=== PATIENT | male | born 1945 | race Caucasian/White ===

== ENCOUNTER 2018-06-06 11:00 | Oncology outpatient (ONC) | payer MEDICARE, SELFPAY ==
[2018-05-30 12:04] LABS: Add Manual Diff / Slide Review NO; Basophils Percent Auto 0.6 % (0-2); Eosinophils Percent Auto 2.5 % (2-4); Hematocrit 46.2 % (41-53); Hemoglobin 15.6 g/dL (13.5-17.5); Lymphocytes Percent Auto 21.9 % (25-40); Mean Corpuscular HGB Conc 33.8 % (30-36); Mean Corpuscular Hemoglobin 31.3 PG (26-34); Mean Corpuscular Volume 92.7 fL (80-100); Monocytes Percent Auto 5.7 % (3-14); Neutrophils Absolute Auto 3800 /uL (3000-5900); Neutrophils Percent Auto 69.3 % (50-75); Platelet Count 125 X10^3/uL (150-400); Red Blood Cell Count 4.98 X10^6/uL (4.5-5.9); Red Cell Distribution Width 13.9 % (11.6-14.8); White Blood Cell Count 5.5 X10^3/uL (4.5-11.0)
[2018-05-30 12:25] LABS: Alanine Aminotransferase 62 IU/L (21-72); Albumin Globulin Ratio 1.5 (1.0-2.8); Alkaline Phosphatase 147 U/L (38-126); Aspartate Aminotransferase 54 IU/L (17-59); Bilirubin Total 0.9 mg/dL (0.2-1.3); Blood Urea Nitrogen 18 mg/dL (9-20); Calcium 9.1 mg/dL (8.4-10.2); Carbon Dioxide 28 mmol/L (22-32); Chloride 107 mmol/L (98-107); Estimated Glomerular Filt Rate > 60.0 mL/min (>60); Globulin 2.7 g/dL (1.7-4.1); Glucose 147 mg/dL (80-110); HEMOLYSIS 18 (0-50); Potassium 4.5 mmol/L (3.4-5.1); Sodium 142 mmol/L (137-145); Total Protein 6.7 g/dL (6.3-8.2)
[2018-05-31 15:19] LABS: Cancer (Carbohydrate) Ag 19-9 18 U/mL (< 34)
[2018-06-06 11:28] VITALS: BP 121/65; PULSE 46; RESP 18; TEMP 36.7; O2SAT 97
--- NOTE | 2018-06-06 11:37 | ONC.PN ---
PN -Subjective Interval history: Diagnosis: Ampullary carcinoma Previous treatment: 1. Surgical resection February 2012 2. Adjuvant FOLFOX followed by chemo radiation followed by additional FOLFOX finishing in December 2012. Interval history: The patient is a 72-year-old man who returns today for follow-up of an ampullary carcinoma. He is now 6 years out from his surgery in more than 5 years out from the end of his chemotherapy. Since his last visit here, he has been feeling about the same. He is bothered by a frequent bowel movements particularly in the mornings. It seems to be worse if he has a big meal. He denies any nausea or vomiting though. His appetite has been stable. He has gained a couple of lb since his last visit. He denies any shortness of breath or cough. He has not noted any adenopathy. He is not having any abdominal pain and denies any other new aches or pains. - Patient Self-Reported Symptoms SR Gastrointestinal issues: Diarrhea SR Musculoskeletal issues: Joint pain or swelling SR Hematologic issues: Bleeding/bruising Home Medications and Allergies Home Medications Medication Instructions Recorded Confirmed Type peqksc-qjhqhzxc-lzmbeer [Creon] 10 ecc PO QDAY #450 cap 08/08/17 06/06/18 Rx insulin aspart U-100 [Novolog 0 unit SQ TIDCC #0 11/29/17 06/06/18 History U-100 Insulin aspart] buspirone 15 mg tablet 15 mg PO SEE INSTRUCTIONS #270 tab 01/06/18 06/06/18 Rx triamcinolone acetonide 0.1 % 1 applictn TOP BID #15 gram NS 01/27/18 06/06/18 Rx topical cream meloxicam 15 mg tablet 15 mg PO Q DAY #30 tab 05/25/18 06/06/18 Rx clonazepam 1 mg tablet 1 mg PO QIDP PRN #60 tab 05/29/18 06/06/18 Rx Allergies Allergy/AdvReac Type Severity Reaction Status Date / Time No Known Drug Allergies Allergy Verified 06/06/18 11:30 Exam - Constitutional positive no acute distress, positive average body habitus - Routine HEENT Exam Head: Present: normocephalic, atraumatic Eye: Present: EOMI, PERRL. Absent: conjunctival icterus, scleral injection ENT: Present: mucous membranes moist, oropharynx clear - Routine Neck Exam Present: supple. Absent: lymphadenopathy, thyromegaly - Routine Respiratory Exam Present: Clear to auscultation bilaterally. Absent: rales, wheezes - Routine Cardiovascular Exam Present: RRR, S1, S2. Absent: murmur - Routine Abdominal Exam Present: soft, normoactive bowel sounds. Absent: organomegaly, mass - Routine Extremities Exam Absent: cyanosis, clubbing, edema - Routine Back/Spine Exam Back/Spine: Absent: vertebral tenderness - Routine Skin Exam Present: intact. Absent: petechiae, rash - Routine Neurological Exam Present: alert, oriented X3 - Routine Psychiatric Exam Present: normal affect, normal thought process Results - Labs Laboratory Last Values WBC 5.5 X10^3/uL (4.5-11.0) 05/30/18 11:39 RBC 4.98 X10^6/uL (4.5-5.9) 05/30/18 11:39 Hgb 15.6 g/dL (13.5-17.5) 05/30/18 11:39 Hct 46.2 % (41-53) 05/30/18 11:39 MCV 92.7 fL (80-100) 05/30/18 11:39 MCH 31.3 PG (26-34) 05/30/18 11:39 MCHC 33.8 % (30-36) 05/30/18 11:39 RDW 13.9 % (11.6-14.8) 05/30/18 11:39 Plt Count 125 X10^3/uL (150-400) L 05/30/18 11:39 Neut % (Auto) 69.3 % (50-75) 05/30/18 11:39 Lymph % (Auto) 21.9 % (25-40) L 05/30/18 11:39 [place] % (Auto) 5.7 % (3-14) 05/30/18 11:39 Eos % (Auto) 2.5 % (2-4) 05/30/18 11:39 Baso % (Auto) 0.6 % (0-2) 05/30/18 11:39 Neut # (Auto) 3800 /uL (1515-0985) 05/30/18 11:39 Sodium 142 mmol/L (137-145) 05/30/18 11:39 Potassium 4.5 mmol/L (3.4-5.1) 05/30/18 11:39 Chloride 107 mmol/L (98-107) 05/30/18 11:39 Carbon Dioxide 28 mmol/L (22-32) 05/30/18 11:39 BUN 18 mg/dL (9-20) 05/30/18 11:39 Creatinine 0.90 mg/dL (0.66-1.25) 05/30/18 11:39 Estimated GFR > 60.0 mL/min (>60) 05/30/18 11:39 BUN/Creatinine Ratio 20.0 (6-22) 05/30/18 11:39 Glucose 147 mg/dL (80-110) H 05/30/18 11:39 Calcium 9.1 mg/dL (8.4-10.2) 05/30/18 11:39 Total Bilirubin 0.9 mg/dL (0.2-1.3) 05/30/18 11:39 AST 54 IU/L (17-59) 05/30/18 11:39 ALT 62 IU/L (21-72) 05/30/18 11:39 Alkaline Phosphatase 147 U/L (38-126) H 05/30/18 11:39 Total Protein 6.7 g/dL (6.3-8.2) 05/30/18 11:39 Albumin 4.0 g/dL (3.5-5.0) 05/30/18 11:39 Globulin 2.7 g/dL (1.7-4.1) 05/30/18 11:39 Albumin/Globulin Ratio 1.5 (1.0-2.8) 05/30/18 11:39 CA 19-9 Antigen 18 U/mL (< 34) 05/30/18 11:39 Assessment and Plan (1) Malignant neoplasm of ampulla of Vater Onset Date: 10/03/15 Problem details: 72-year-old man with the history of ampullary carcinoma. He is now more than 5 years out from the end of his chemotherapy. He has no evidence of recurrence and his CA 19 9 is normal. I think at this point, it is exceedingly likely that he is cured of this cancer. I do not think that any further specific follow-up is required. I have not scheduled a follow-up for him but would be happy to see him again in the future should any new problems arise. Current visit: No Status: None
== END 2018-06-07 12:00 ==
PROVIDERS: Family Provider Family Medicine; PCP Family Medicine; Visit Provider Nurse Practitioner Gerontology
DX: Z08 Encounter for follow-up examination after completed treatment for malignant neoplasm (principal); Z85.09 Personal history of malignant neoplasm of other digestive organs
CPT/HCPCS: 36592; 80053; 85025; 86301; 96523; 99214

== ENCOUNTER → 2018-08-04 10:21 | Outpatient (CLI) | payer MEDICARE, SELFPAY ==
[2018-08-04 11:06] LABS: Alanine Aminotransferase 60 IU/L (21-72); Albumin Globulin Ratio 1.6 (1.0-2.8); Alkaline Phosphatase 120 U/L (38-126); Aspartate Aminotransferase 46 IU/L (17-59); BUN Creatinine Ratio 27.5 (6-22); Bilirubin Total 0.5 mg/dL (0.2-1.3); Blood Urea Nitrogen 22 mg/dL (9-20); Carbon Dioxide 25 mmol/L (22-32); Chloride 110 mmol/L (98-107); Cholesterol 114 mg/dL (140-199); Estimated Glomerular Filt Rate > 60.0 mL/min (>60); Globulin 2.5 g/dL (1.7-4.1); Glucose 88 mg/dL (80-110); HDL Cholesterol 56 mg/dL (40-60); HEMOLYSIS 15 (0-50); LDL Cholesterol Calculated 45 mg/dL (<100); Potassium 4.5 mmol/L (3.4-5.1); Sodium 144 mmol/L (137-145); Total Protein 6.5 g/dL (6.3-8.2); Triglycerides 65 mg/dL (35-150)
[2018-08-04 12:21] LABS: Creatinine Urine Random 150.7 mg/dL
[2018-08-04 12:24] LABS: Microalbumi Creatinin Ratio Ur 4.6 ug/mg CR (<30); Microalbumin Urine Random 0.7 mg/dL (0-1.6)
== END ==
PROVIDERS: Family Provider Family Medicine; PCP Student in an Organized Health Care Education/Training Program; Visit Provider Internal Medicine Endocrinology, Diabetes & Metabolism
DX: E10.649 Type 1 diabetes mellitus with hypoglycemia without coma (principal)
CPT/HCPCS: 36592; 80053; 80061; 82043; 82570

== ENCOUNTER 2018-10-03 14:34 | Emergency (ER) | payer MEDICARE, SELFPAY ==
[2018-10-03 14:50] VITALS: BP 142/79; PULSE 50; RESP 16; TEMP 36.4; O2SAT 98; BMI 23.1
--- NOTE | 2018-10-03 14:53 | DI.RAD.S_ITS ---
PROCEDURE: XR FOREARM RT 2V INDICATIONS: wood exploded, now with left arm laceration TECHNIQUE: 2 views of the forearm were acquired. COMPARISON: None. FINDINGS: Bones: No fractures or dislocations. No suspicious bony lesions. Soft tissues: No radiopaque foreign body identified. There is a soft tissue laceration along the ventral aspect of the midforearm. No suspicious soft tissue calcifications or masses. IMPRESSION: 1. No fractures or radiopaque foreign bodies. Dictated by: Jason Hall M.D. on 10/03/2018 at 15:13 Approved by: Jason Hall M.D. on 10/03/2018 at 15:15
--- NOTE | 2018-10-03 16:32 | ED.UPPEXIN ---
HPI - Extremity Injury (Upper) General Chief Complaint: Extremity Injury, Upper Stated Complaint: LACERATION OF LEFT ARM Time Seen by Provider: 10/03/18 15:37 Related Data Home Medications Medication Instructions Recorded Confirmed Insulin pump See Rx Instructions .ROUTE .COMPLEX 06/20/18 10/03/18 buspirone 15 mg tablet 15 mg PO TID 06/20/18 10/03/18 colestipol 1 gram tablet 2 tsp PO QPM tab 06/20/18 08/18/18 loperamide 2 mg capsule 2 mg PO Q2-4H PRN 06/20/18 10/03/18 fluocinonide 1 applic TOPICAL BID PRN 10/03/18 10/03/18 insulin aspart U-100 [Novolog 60 units CONTINUOUS SUBCUTANEOUS 10/03/18 10/03/18 U-100 Insulin aspart] INFUSION DAILY klupxv-tcyvzovq-teueqjx [Creon] 2 - 3 cap PO TIDWM MDD 9 10/03/18 10/03/18 meloxicam 15 mg PO DAILY 10/03/18 10/03/18 Previous Rx's Medication Instructions Recorded clonazepam 1 mg tablet 1 mg PO TID PRN #90 tab 06/20/18 betamethasone dipropionate 0.05 % 1 applictn TOP BID PRN #15 gram 08/18/18 topical cream diclofenac 1 % topical gel 2 gram TOP QID PRN #100 gram 08/18/18 Allergies Allergy/AdvReac Type Severity Reaction Status Date / Time No Known Drug Allergies Allergy Verified 10/03/18 14:55 PFSH Medical History Anxiety (Chronic 2013) Depression (Chronic 2013) Shoulder pain (Chronic 1999) Type 1 diabetes mellitus (Chronic) Mumps (Resolved ~1950) Polio (Resolved ~1948) Primary cancer of ampulla of Vater (Resolved 2011) Surgical History History of surgery (Resolved 2011) History of tonsillectomy (Resolved ~1949) Status post appendectomy (Resolved ~1949) Status post right foot surgery (Resolved 1964) Family History Brother Age: 69 Diabetes mellitus Stroke Brother Age: 67 Osteoporosis Father Hyperlipidemia Heart disease [place] (myocardial infarction) Mother Age: 96 Arthritis Diabetes mellitus Grandfather Diabetes mellitus Grandfather Dementia Grandmother Cancer Grandmother Alzheimer's disease Social History Smoking Status: Current some day smoker alcohol intake: current (4 to 5 drinks a week) substance use type: does not use Family History Brother Age: 69 Diabetes mellitus Stroke Brother Age: 67 Osteoporosis Father Hyperlipidemia Heart disease [place] (myocardial infarction) Mother Age: 96 Arthritis Diabetes mellitus Grandfather Diabetes mellitus Grandfather Dementia Grandmother Cancer Grandmother Alzheimer's disease Social History Smoking Status: Current some day smoker alcohol intake: current (4 to 5 drinks a week) substance use type: does not use Exam Initial Vital Signs Initial Vital Signs: Vital Signs Temperature 97.6 F 10/03/18 14:50 Pulse Rate 50 L 10/03/18 14:50 Respiratory Rate 16 10/03/18 14:50 Blood Pressure 142/79 H 10/03/18 14:50 Pulse Oximetry 98 10/03/18 14:50 Course Orders Ordered: ED Orders 10/03/18 14:53 XR forearm LT 2V Stat Vital Signs - 8 hr 10/03/18 14:50 Temperature 97.6 F Pulse Rate 50 L Respiratory Rate 16 Blood Pressure 142/79 H Pulse Oximetry 98 Discharge Plan Departure Prescriptions: No Action buspirone 15 mg tablet 15 mg PO TID RF: 0 Insulin pump See Patient Comments .ROUTE .COMPLEX RF: 0 loperamide [Imodium A-D] 2 mg capsule 2 mg PO Q2-4H PRN (Reason: Diarrhea) RF: 0 colestipol 1 gram tablet 2 tsp PO QPM RF: 0 clonazepam [Klonopin] 1 mg tablet 1 mg PO TID PRN (Reason: anxiety) Qty: 90 RF: 2 diclofenac sodium 1 % gel 2 gram TOP QID PRN (Reason: arthritic pain) Qty: 100 RF: 0 betamethasone dipropionate 0.05 % cream 1 applictn TOP BID PRN (Reason: skin irritation) Qty: 15 RF: 0 Novolog U-100 Insulin aspart 100 unit/mL solution 60 units Continuous Subcutaneous Infusion DAILY RF: 0 fluocinonide 0.1 % cream 1 applic Topical BID PRN (Reason: Itching) RF: 0 Creon 24,000-76,000 -120,000 unit capsule,delayed release(DR/EC) 2 - 3 cap PO TIDWM MDD 9 RF: 0 meloxicam 15 mg tablet 15 mg PO DAILY RF: 0
--- NOTE | 2018-10-03 17:12 | ED.UPPEXIN ---
HPI - Extremity Injury (Upper) <ROLANDO Tucker - Last Filed: 10/03/18 21:55> General Chief Complaint: Extremity Injury, Upper Stated Complaint: LACERATION OF LEFT ARM Time Seen by Provider: 10/03/18 15:37 Source: patient Mode of arrival: ambulatory Limitations: no limitations History of Present Illness HPI narrative: 73-year-old male with history of diabetes and is a part-time smoker here for complaint of pain into his left forearm area. He states that he was using his would later earlier today when the stock that he was working on came loose and hit him in his left arm. He was wearing a jacket and sure to any states that the piece did not come through the jacket or the assured. He reports having laceration to the left forearm area and abrasion to the left biceps area. He states that his tetanus is up-to-date. He denies any other injuries. Incident happened just prior to arrival. MD complaint: injury to: left and forearm Related Data Home Medications Medication Instructions Recorded Confirmed Insulin pump See Rx Instructions .ROUTE .COMPLEX 06/20/18 10/03/18 buspirone 15 mg tablet 15 mg PO TID 06/20/18 10/03/18 colestipol 1 gram tablet 2 tsp PO QPM tab 06/20/18 08/18/18 loperamide 2 mg capsule 2 mg PO Q2-4H PRN 06/20/18 10/03/18 fluocinonide 1 applic TOPICAL BID PRN 10/03/18 10/03/18 insulin aspart U-100 [Novolog 60 units CONTINUOUS SUBCUTANEOUS 10/03/18 10/03/18 U-100 Insulin aspart] INFUSION DAILY mcmwue-nmegsjgx-ipngeiw [Creon] 2 - 3 cap PO TIDWM MDD 9 10/03/18 10/03/18 meloxicam 15 mg PO DAILY 10/03/18 10/03/18 Previous Rx's Medication Instructions Recorded clonazepam 1 mg tablet 1 mg PO TID PRN #90 tab 06/20/18 betamethasone dipropionate 0.05 % 1 applictn TOP BID PRN #15 gram 08/18/18 topical cream diclofenac 1 % topical gel 2 gram TOP QID PRN #100 gram 08/18/18 Allergies Allergy/AdvReac Type Severity Reaction Status Date / Time No Known Drug Allergies Allergy Verified 10/03/18 14:55 Review of Systems <ROLANDO Tucker - Last Filed: 10/03/18 21:55> Constitutional Denies chills, Denies fever(s), Denies lethargy and Denies weakness Eyes Denies change in vision, Denies eye discharge, Denies irritation and Denies loss of vision ENT Ears, Nose, Mouth, and Throat: Denies change in voice, Denies neck pain and Denies sore throat Cardiovascular Denies chest pain, Denies irregular heart rhythm, Denies lightheadedness, Denies palpitations, Denies dyspnea, Denies dyspnea on exertion and Denies orthopnea Respiratory Denies cough, Denies dyspnea, Denies dyspnea on exertion and Denies wheezing Gastrointestinal Gastrointestinal: Denies abdominal pain, Denies change in bowel habits, Denies diarrhea, Denies nausea and Denies vomiting Genitourinary Denies hematuria, Denies flank pain, Denies urinary incontinence and Denies urinary urgency Musculoskeletal Denies neck pain Comments: Pain laceration of left forearm Integumentary/Breasts Denies pruritus, Denies erythema, Denies rash and Denies wounds Neurologic Denies confusion, Denies loss of vision and Denies weakness Psychiatric Denies anxiety, Denies confusion, Denies depression, Denies homicidal ideation and Denies suicidal ideation Endocrine Denies palpitations Hematologic/Lymphatic Denies easy bruising Allergic/Immunologic Denies wheezing PFSH <ROLANDO Tucker - Last Filed: 10/03/18 21:55> Medical History Anxiety (Chronic 2013) Depression (Chronic 2013) Shoulder pain (Chronic 1999) Type 1 diabetes mellitus (Chronic) Mumps (Resolved ~1949) Polio (Resolved ~1947) Primary cancer of ampulla of Vater (Resolved 2011) Surgical History History of surgery (Resolved 2011) History of tonsillectomy (Resolved ~1949) Status post appendectomy (Resolved ~1949) Status post right foot surgery (Resolved 1964) Family History Brother Age: 69 Diabetes mellitus Stroke Brother Age: 67 Osteoporosis Father Hyperlipidemia Heart disease [place] (myocardial infarction) Mother Age: 96 Arthritis Diabetes mellitus Grandfather Diabetes mellitus Grandfather Dementia Grandmother Cancer Grandmother Alzheimer's disease Social History Smoking Status: Current some day smoker alcohol intake: current (4 to 5 drinks a week) substance use type: does not use Family History Brother Age: 69 Diabetes mellitus Stroke Brother Age: 67 Osteoporosis Father Hyperlipidemia Heart disease [place] (myocardial infarction) Mother Age: 96 Arthritis Diabetes mellitus Grandfather Diabetes mellitus Grandfather Dementia Grandmother Cancer Grandmother Alzheimer's disease Social History Smoking Status: Current some day smoker alcohol intake: current (4 to 5 drinks a week) substance use type: does not use Exam <ROLANDO Tucker - Last Filed: 10/03/18 21:55> Initial Vital Signs Initial Vital Signs: Vital Signs Temperature 97.6 F 10/03/18 14:50 Pulse Rate 50 L 10/03/18 14:50 Respiratory Rate 16 10/03/18 14:50 Blood Pressure 142/79 H 10/03/18 14:50 Pulse Oximetry 98 10/03/18 14:50 Const General: cooperative and well developed Nutritional Appearance: well nourished Orientation: alert, awake, oriented x3 and not confused HENCO Mouth: oral mucosae normal and moist mucous membranes Eyes Conjunctivae: conjunctivae normal Sclera: sclerae normal Pupils: PERRL EOM: EOM intact bilaterally Resp Effort & Inspection: normal respiratory effort, able to speak in complete sentences, no respiratory distress and no use of accessory muscles Auscultation: clear to auscultation bilaterally, no rales, no rhonchi and no wheezes Cardio Rate: regular rate Rhythm: regular rhythm Heart Sounds: no click, no gallops, no murmurs and no rubs Pulses: normal peripheral pulses Skin General: no rashes or lesions noted, No jaundice and No petechiae Neuro General: alert, oriented x3, gait normal and no focal motor deficits Speech: speech normal Extrem Other: 2.5 cm avulsion laceration to the ventral aspect of the left forearm. No foreign bodies are appreciated distal sensation is intact. Distal range of motion is intact. Distal pulses are intact. 1.5 cm skin tear/abrasion to the left biceps area. <Bakari Paz DO - Last Filed: 10/04/18 18:25> Initial Vital Signs Initial Vital Signs: Vital Signs Temperature 97.6 F 10/03/18 14:50 Pulse Rate 50 L 10/03/18 14:50 Respiratory Rate 16 10/03/18 14:50 Blood Pressure 142/79 H 10/03/18 14:50 Pulse Oximetry 98 10/03/18 14:50 Procedures <ROLANDO Tucker - Last Filed: 10/03/18 21:55> Laceration Repair Laceration 1: Site: other (Left forearm) Side (If applicable): left Size (cm): 2.5 Description: irregular and other (avulsion laceration) Depth: simple, single layer Local Anesthetic: lidocaine 1% Amount of anesthesia used (mL): 4 Pre-repair: wound explored, irrigated extensively and wound margins revised Skin layer closed with: nylon Size (cm): 5-0 Number of sutures: 6 Technique: simple, interrupted Course <ROLANDO Tucker - Last Filed: 10/03/18 21:55> Orders Ordered: ED Orders 10/03/18 14:53 XR forearm LT 2V Stat Vital Signs - 8 hr 10/03/18 14:50 10/03/18 18:34 Temperature 97.6 F Pulse Rate 50 L 57 L Respiratory Rate 16 Blood Pressure 142/79 H 147/90 H Pulse Oximetry 98 97 <Bakari Paz DO - Last Filed: 10/04/18 18:25> Orders Ordered: ED Orders 10/03/18 14:53 XR forearm LT 2V Stat Vital Signs - 8 hr 10/03/18 14:50 10/03/18 18:34 Temperature 97.6 F Pulse Rate 50 L 57 L Respiratory Rate 16 Blood Pressure 142/79 H 147/90 H Pulse Oximetry 98 97 MDM - Extremity Injury (Upper) <ROLANDO Tucker - Last Filed: 10/03/18 21:55> Imaging Data Left forearm : Radiologist's impression: [address] [place] [id number] XRay Report Signed Patient: Tyree Monroy RMR#: [id number] : 6Acct:[id number] Age/Sex: 73 / MDate of Service: 10/03/18 Loc: ED Accession Number: [id number] Procedure: XR forearm LT 2V Ordering Provider: Bakari Paz D.O. PROCEDURE: XR FOREARM RT 2V INDICATIONS: wood exploded, now with left arm laceration TECHNIQUE: 2 views of the forearm were acquired. COMPARISON: None. FINDINGS: Bones: No fractures or dislocations. No suspicious bony lesions. Soft tissues: No radiopaque foreign body identified. There is a soft tissue laceration along the ventral aspect of the midforearm. No suspicious soft tissue calcifications or masses. IMPRESSION: 1. No fractures or radiopaque foreign bodies. Dictated by: Jason Hall M.D. on 10/03/2018 at 15:13 Approved by: Jason Hall M.D. on 10/03/2018 at 15:15 [facility] Narrative Medical decision making narrative: X-ray of the left forearm was obtained was negative for any acute fractures or foreign bodies. The avulsion laceration to left forearm area was closed with 6 5-0 nylon sutures. Wound dressed with bacitracin dressing. Sutures removed in 7-10 days. Skin tear/abrasion to the biceps area was cleansed and dressed with bacitracin and a dressing. Pykt-svh-dywpnwv Tylenol or Motrin as needed for any discomfort. Follow up with primary care provider. Return emergency room for any worsening symptoms. Discharge Plan Departure Patient Disposition: Home Clinical Impression: Laceration of forearm, left Qualifiers: Encounter type: initial encounter Qualified Code(s): S51.812A - Laceration without foreign body of left forearm, initial encounter Discharge Date/Time: 10/03/18 18:36 Interventions: ED Discharge Assessment Last Done: 10/03/18 18:34 Instructions: DI for Laceration Repair Activity Restrictions/Additional Instructions: Laceration left forearm area was cleansed and closed with 6 sutures. Sutures will need to be removed in 7-10 days. Keep initial dressing on clean and dry for 36 hr. After this timeframe may remove the dressing and shower briefly. After shower dry wound and redressed with bacitracin dressing. Dress wound daily with bacitracin dressing until healed. Use uixv-qnk-ryzdlvr Tylenol or Motrin as needed for any discomfort. Dress abrasion into the biceps area with bacitracin dressing until healed. Follow up with primary care provider. Return emergency room for any worsening symptoms. Prescriptions: No Action buspirone 15 mg tablet 15 mg PO TID RF: 0 Insulin pump See Patient Comments .ROUTE .COMPLEX RF: 0 loperamide [Imodium A-D] 2 mg capsule 2 mg PO Q2-4H PRN (Reason: Diarrhea) RF: 0 colestipol 1 gram tablet 2 tsp PO QPM RF: 0 clonazepam [Klonopin] 1 mg tablet 1 mg PO TID PRN (Reason: anxiety) Qty: 90 RF: 2 diclofenac sodium 1 % gel 2 gram TOP QID PRN (Reason: arthritic pain) Qty: 100 RF: 0 betamethasone dipropionate 0.05 % cream 1 applictn TOP BID PRN (Reason: skin irritation) Qty: 15 RF: 0 Novolog U-100 Insulin aspart 100 unit/mL solution 60 units Continuous Subcutaneous Infusion DAILY RF: 0 fluocinonide 0.1 % cream 1 applic Topical BID PRN (Reason: Itching) RF: 0 Creon 24,000-76,000 -120,000 unit capsule,delayed release(DR/EC) 2 - 3 cap PO TIDWM MDD 9 RF: 0 meloxicam 15 mg tablet 15 mg PO DAILY RF: 0 Referrals: Simeon Dang MD [Primary Care Provider] - <Bakari Paz DO - Last Filed: 10/04/18 18:25> Cosign ED Attending Cosignature Attestation: I was immediately available in the department for consultation. Documentation has been reviewed. I agree with assessment and plan.
--- NOTE | 2018-10-03 17:20 | ED_ITS ---
HPI - Extremity Injury (Upper) <ROLANDO Tucker - Last Filed: 10/03/18 21:55> General Chief Complaint: Extremity Injury, Upper Stated Complaint: LACERATION OF LEFT ARM Time Seen by Provider: 10/03/18 15:37 Source: patient Mode of arrival: ambulatory Limitations: no limitations History of Present Illness HPI narrative: 73-year-old male with history of diabetes and is a part-time smoker here for complaint of pain into his left forearm area. He states that he was using his would later earlier today when the stock that he was working on came loose and hit him in his left arm. He was wearing a jacket and sure to any states that the piece did not come through the jacket or the assured. He reports having laceration to the left forearm area and abrasion to the left biceps area. He states that his tetanus is up-to-date. He denies any other injuries. Incident happened just prior to arrival. MD complaint: injury to: left and forearm Related Data Home Medications Medication Instructions Recorded Confirmed Insulin pump See Rx Instructions .ROUTE .COMPLEX 06/20/18 10/03/18 buspirone 15 mg tablet 15 mg PO TID 06/20/18 10/03/18 colestipol 1 gram tablet 2 tsp PO QPM tab 06/20/18 08/18/18 loperamide 2 mg capsule 2 mg PO Q2-4H PRN 06/20/18 10/03/18 fluocinonide 1 applic TOPICAL BID PRN 10/03/18 10/03/18 insulin aspart U-100 [Novolog 60 units CONTINUOUS SUBCUTANEOUS 10/03/18 10/03/18 U-100 Insulin aspart] INFUSION DAILY pgklpb-fgpebges-zxzwlmo [Creon] 2 - 3 cap PO TIDWM MDD 9 10/03/18 10/03/18 meloxicam 15 mg PO DAILY 10/03/18 10/03/18 Previous Rx's Medication Instructions Recorded clonazepam 1 mg tablet 1 mg PO TID PRN #90 tab 06/20/18 betamethasone dipropionate 0.05 % 1 applictn TOP BID PRN #15 gram 08/18/18 topical cream diclofenac 1 % topical gel 2 gram TOP QID PRN #100 gram 08/18/18 Allergies Allergy/AdvReac Type Severity Reaction Status Date / Time No Known Drug Allergies Allergy Verified 10/03/18 14:55 Review of Systems <ROLANDO Tucker - Last Filed: 10/03/18 21:55> Constitutional Denies chills, Denies fever(s), Denies lethargy and Denies weakness Eyes Denies change in vision, Denies eye discharge, Denies irritation and Denies loss of vision ENT Ears, Nose, Mouth, and Throat: Denies change in voice, Denies neck pain and Denies sore throat Cardiovascular Denies chest pain, Denies irregular heart rhythm, Denies lightheadedness, Denies palpitations, Denies dyspnea, Denies dyspnea on exertion and Denies orthopnea Respiratory Denies cough, Denies dyspnea, Denies dyspnea on exertion and Denies wheezing Gastrointestinal Gastrointestinal: Denies abdominal pain, Denies change in bowel habits, Denies diarrhea, Denies nausea and Denies vomiting Genitourinary Denies hematuria, Denies flank pain, Denies urinary incontinence and Denies urinary urgency Musculoskeletal Denies neck pain Comments: Pain laceration of left forearm Integumentary/Breasts Denies pruritus, Denies erythema, Denies rash and Denies wounds Neurologic Denies confusion, Denies loss of vision and Denies weakness Psychiatric Denies anxiety, Denies confusion, Denies depression, Denies homicidal ideation and Denies suicidal ideation Endocrine Denies palpitations Hematologic/Lymphatic Denies easy bruising Allergic/Immunologic Denies wheezing PFSH <ROLANDO Tucker - Last Filed: 10/03/18 21:55> Medical History Anxiety (Chronic 2013) Depression (Chronic 2013) Shoulder pain (Chronic 1999) Type 1 diabetes mellitus (Chronic) Mumps (Resolved ~1949) Polio (Resolved ~1947) Primary cancer of ampulla of Vater (Resolved 2011) Surgical History History of surgery (Resolved 2011) History of tonsillectomy (Resolved ~1949) Status post appendectomy (Resolved ~1949) Status post right foot surgery (Resolved 1964) Family History Brother Age: 69 Diabetes mellitus Stroke Brother Age: 67 Osteoporosis Father Hyperlipidemia Heart disease SD (myocardial infarction) Mother Age: 96 Arthritis Diabetes mellitus Grandfather Diabetes mellitus Grandfather Dementia Grandmother Cancer Grandmother Alzheimer's disease Social History Smoking Status: Current some day smoker alcohol intake: current (4 to 5 drinks a week) substance use type: does not use Family History Brother Age: 69 Diabetes mellitus Stroke Brother Age: 67 Osteoporosis Father Hyperlipidemia Heart disease SD (myocardial infarction) Mother Age: 96 Arthritis Diabetes mellitus Grandfather Diabetes mellitus Grandfather Dementia Grandmother Cancer Grandmother Alzheimer's disease Social History Smoking Status: Current some day smoker alcohol intake: current (4 to 5 drinks a week) substance use type: does not use Exam <ROLANDO Tucker - Last Filed: 10/03/18 21:55> Initial Vital Signs Initial Vital Signs: Vital Signs Temperature 97.6 F 10/03/18 14:50 Pulse Rate 50 L 10/03/18 14:50 Respiratory Rate 16 10/03/18 14:50 Blood Pressure 142/79 H 10/03/18 14:50 Pulse Oximetry 98 10/03/18 14:50 Const General: cooperative and well developed Nutritional Appearance: well nourished Orientation: alert, awake, oriented x3 and not confused HENME Mouth: oral mucosae normal and moist mucous membranes Eyes Conjunctivae: conjunctivae normal Sclera: sclerae normal Pupils: PERRL EOM: EOM intact bilaterally Resp Effort & Inspection: normal respiratory effort, able to speak in complete sentences, no respiratory distress and no use of accessory muscles Auscultation: clear to auscultation bilaterally, no rales, no rhonchi and no wheezes Cardio Rate: regular rate Rhythm: regular rhythm Heart Sounds: no click, no gallops, no murmurs and no rubs Pulses: normal peripheral pulses Skin General: no rashes or lesions noted, No jaundice and No petechiae Neuro General: alert, oriented x3, gait normal and no focal motor deficits Speech: speech normal Extrem Other: 2.5 cm avulsion laceration to the ventral aspect of the left forearm. No foreign bodies are appreciated distal sensation is intact. Distal range of motion is intact. Distal pulses are intact. 1.5 cm skin tear/abrasion to the left biceps area. <Bakari Paz DO - Last Filed: 10/04/18 18:25> Initial Vital Signs Initial Vital Signs: Vital Signs Temperature 97.6 F 10/03/18 14:50 Pulse Rate 50 L 10/03/18 14:50 Respiratory Rate 16 10/03/18 14:50 Blood Pressure 142/79 H 10/03/18 14:50 Pulse Oximetry 98 10/03/18 14:50 Procedures <ROLANDO Tucker - Last Filed: 10/03/18 21:55> Laceration Repair Laceration 1: Site: other (Left forearm) Side (If applicable): left Size (cm): 2.5 Description: irregular and other (avulsion laceration) Depth: simple, single layer Local Anesthetic: lidocaine 1% Amount of anesthesia used (mL): 4 Pre-repair: wound explored, irrigated extensively and wound margins revised Skin layer closed with: nylon Size (cm): 5-0 Number of sutures: 6 Technique: simple, interrupted Course <ROLANDO Tucker - Last Filed: 10/03/18 21:55> Orders Ordered: ED Orders 10/03/18 14:53 XR forearm LT 2V Stat Vital Signs - 8 hr 10/03/18 14:50 10/03/18 18:34 Temperature 97.6 F Pulse Rate 50 L 57 L Respiratory Rate 16 Blood Pressure 142/79 H 147/90 H Pulse Oximetry 98 97 <Bakari Paz DO - Last Filed: 10/04/18 18:25> Orders Ordered: ED Orders 10/03/18 14:53 XR forearm LT 2V Stat Vital Signs - 8 hr 10/03/18 14:50 10/03/18 18:34 Temperature 97.6 F Pulse Rate 50 L 57 L Respiratory Rate 16 Blood Pressure 142/79 H 147/90 H Pulse Oximetry 98 97 MDM - Extremity Injury (Upper) <ROLANDO Tucker - Last Filed: 10/03/18 21:55> Imaging Data Left forearm : Radiologist's impression: [address] [place] [id number] XRay Report Signed Patient: Tyree Monroy RMR#: [id number] : 6Acct:[id number] Age/Sex: 73 / MDate of Service: 10/03/18 Loc: ED Accession Number: [id number] Procedure: XR forearm LT 2V Ordering Provider: Bakari Paz D.O. PROCEDURE: XR FOREARM RT 2V INDICATIONS: wood exploded, now with left arm laceration TECHNIQUE: 2 views of the forearm were acquired. COMPARISON: None. FINDINGS: Bones: No fractures or dislocations. No suspicious bony lesions. Soft tissues: No radiopaque foreign body identified. There is a soft tissue laceration along the ventral aspect of the midforearm. No suspicious soft tissue calcifications or masses. IMPRESSION: 1. No fractures or radiopaque foreign bodies. Dictated by: Jason Hall M.D. on 10/03/2018 at 15:13 Approved by: Jason Hall M.D. on 10/03/2018 at 15:15 [facility] Narrative Medical decision making narrative: X-ray of the left forearm was obtained was negative for any acute fractures or foreign bodies. The avulsion laceration to left forearm area was closed with 6 5-0 nylon sutures. Wound dressed with bacitracin dressing. Sutures removed in 7-10 days. Skin tear/abrasion to the biceps area was cleansed and dressed with bacitracin and a dressing. Kesw-cno-flzgayl Tylenol or Motrin as needed for any discomfort. Follow up with primary care provider. Return emergency room for any worsening symptoms. Discharge Plan Departure Patient Disposition: Home Clinical Impression: Laceration of forearm, left Qualifiers: Encounter type: initial encounter Qualified Code(s): S51.812A - Laceration without foreign body of left forearm, initial encounter Discharge Date/Time: 10/03/18 18:36 Interventions: ED Discharge Assessment Last Done: 10/03/18 18:34 Instructions: DI for Laceration Repair Activity Restrictions/Additional Instructions: Laceration left forearm area was cleansed and closed with 6 sutures. Sutures will need to be removed in 7-10 days. Keep initial dressing on clean and dry for 36 hr. After this timeframe may remove the dressing and shower briefly. After shower dry wound and redressed with bacitracin dressing. Dress wound daily with bacitracin dressing until healed. Use [id number]-[id number] Tylenol or Motrin as needed for any discomfort. Dress abrasion into the biceps area with bacitracin dressing until healed. Follow up with primary care provider. Return emergency room for any worsening symptoms. Prescriptions: No Action buspirone 15 mg tablet 15 mg PO TID RF: 0 Insulin pump See Patient Comments .ROUTE .COMPLEX RF: 0 loperamide [Imodium A-D] 2 mg capsule 2 mg PO Q2-4H PRN (Reason: Diarrhea) RF: 0 colestipol 1 gram tablet 2 tsp PO QPM RF: 0 clonazepam [Klonopin] 1 mg tablet 1 mg PO TID PRN (Reason: anxiety) Qty: 90 RF: 2 diclofenac sodium 1 % gel 2 gram TOP QID PRN (Reason: arthritic pain) Qty: 100 RF: 0 betamethasone dipropionate 0.05 % cream 1 applictn TOP BID PRN (Reason: skin irritation) Qty: 15 RF: 0 Novolog U-100 Insulin aspart 100 unit/mL solution 60 units Continuous Subcutaneous Infusion DAILY RF: 0 fluocinonide 0.1 % cream 1 applic Topical BID PRN (Reason: Itching) RF: 0 Creon 24,000-76,000 -120,000 unit capsule,delayed release(DR/EC) 2 - 3 cap PO TIDWM MDD 9 RF: 0 meloxicam 15 mg tablet 15 mg PO DAILY RF: 0 Referrals: Simeon Dang MD [Primary Care Provider] - <Bakari Paz DO - Last Filed: 10/04/18 18:25> Cosign ED Attending Cosignature Attestation: I was immediately available in the depart ment for consultation. Documentation has been reviewed. I agree with assessment and plan.
[2018-10-03 18:34] VITALS: BP 147/90; PULSE 57; O2SAT 97
== END 2018-10-03 18:36 | disposition home or self-care (01) ==
PROVIDERS: Emergency Provider Nurse Practitioner Family; Family Provider Family Medicine; PCP Student in an Organized Health Care Education/Training Program
DX: S51.812A Laceration without foreign body of left forearm, initial encounter (principal); W26.8XXA Contact with other sharp object(s), not elsewhere classified, initial encounter
CPT/HCPCS: 12001; 73090; 99283

== ENCOUNTER → 2019-02-15 14:58 | Oncology outpatient (ONC) | payer MEDICARE, SELFPAY ==
[2019-02-15 16:04] LABS: Add Manual Diff / Slide Review NO; Basophils Absolute Auto 0 /uL (0-100); Basophils Percent Auto 0.7 % (0-2); Eosinophils Absolute Auto 200 /uL (0-450); Eosinophils Percent Auto 4.8 % (2-4); Hematocrit 46.9 % (41-53); Hemoglobin 15.8 g/dL (13.5-17.5); Lymphocytes Absolute Auto 1300 /uL (1100-4500); Mean Corpuscular HGB Conc 33.8 % (30-36); Mean Corpuscular Hemoglobin 31.7 PG (26-34); Monocytes Absolute Auto 300 /uL (0-900); Neutrophils Absolute Auto 2900 /uL (1500-7000); Neutrophils Percent Auto 59.5 % (50-75); Platelet Count 118 X10^3/uL (150-400); Red Blood Cell Count 4.99 X10^6/uL (4.5-5.9); White Blood Cell Count 4.8 X10^3/uL (4.5-11.0)
[2019-02-15 16:11] LABS: Alanine Aminotransferase 46 IU/L (21-72); Albumin Globulin Ratio 1.5 (1.0-2.8); Alkaline Phosphatase 136 U/L (38-126); Aspartate Aminotransferase 35 IU/L (17-59); BUN Creatinine Ratio 16.7 (6-22); Bilirubin Total 0.7 mg/dL (0.2-1.3); Blood Urea Nitrogen 15 mg/dL (9-20); Calcium 8.9 mg/dL (8.4-10.2); Carbon Dioxide 25 mmol/L (22-32); Chloride 109 mmol/L (98-107); Estimated Glomerular Filt Rate > 60.0 mL/min (>60); Globulin 2.6 g/dL (1.7-4.1); Glucose 100 mg/dL (80-110); HEMOLYSIS < 15 (0-50); Potassium 4.3 mmol/L (3.4-5.1); Sodium 142 mmol/L (137-145); Total Protein 6.6 g/dL (6.3-8.2)
[2019-02-17 16:32] LABS: Cancer (Carbohydrate) Ag 19-9 20 U/mL (< 34)
== END ==
LOC: ONC 14:59
PROVIDERS: Family Provider Family Medicine; PCP Student in an Organized Health Care Education/Training Program; Visit Provider Surgery
DX: Z08 Encounter for follow-up examination after completed treatment for malignant neoplasm (principal); Z85.07 Personal history of malignant neoplasm of pancreas; Z95.828 Presence of other vascular implants and grafts; Z85.09 Personal history of malignant neoplasm of other digestive organs
CPT/HCPCS: 36591; 80053; 85025; 86301; 99214

== ENCOUNTER → 2019-03-06 10:53 | Outpatient (CLI) | payer MEDICARE, SELFPAY ==
--- NOTE | 2019-03-06 12:43 | DI.CT.S_ITS ---
PROCEDURE: CT CHEST ABD PEL W CON INDICATIONS: screening post pancreatic cancer TECHNIQUE: After the administration of oral and intravenous contrast, 5 mm thick sections acquired from the lung apices to the symphysis. 5 mm coronal and sagittal reformats were performed, with additional 7 mm coronal MIP reformats through the lungs. For radiation dose reduction, the following was used: automated exposure control, adjustment of mA and/or kV according to patient size. COMPARISON: [facility], CT, ABDOMEN/PELVIS WITH CONTRAST, 07/05/2016, 10:18. [facility], CT, CHEST/ABD/PEL WITH CONTRAST, 04/18/2014, 9:32. FINDINGS: Image quality: Excellent. CHEST: Lungs and pleura: Patient's known bilateral subcentimeter pulmonary nodules are essentially unchanged in size and appearance. Largest nodule is seen in posterior aspect of right lower lobe and measures 4-5 mm in size series 5 image 148. No gross new pulmonary nodule is seen. Bibasilar scarring/atelectasis is seen. No pleural effusions or pneumothorax. Central and peripheral airways appear patent and normal in caliber. Mediastinum: Heart size is normal. No pericardial effusion. No mediastinal adenopathy by size criteria. Mildly prominent right hilar lymph node is again seen and measures 11 mm in short axis diameter compared to 1 cm on previous study. Thoracic aorta and central pulmonary arteries are normal in size. Esophagus is normal in caliber. No hiatal hernia. Chest wall: No axillary or supraclavicular adenopathy by size criteria. Thyroid gland is within normal limits. Left chest wall Port-A-Cath tip is in SVC. ABDOMEN: Solid organs: Liver is normal in size and enhancement. Gallbladder is surgically absent. Pneumobilia is again seen predominantly involving the left hepatic lobe. Biliary system is non dilated. Atrophic appearing body and tail of pancreas is again seen containing dystrophic calcifications. Post Whipple's procedure changes are seen. No discrete soft tissue mass or fluid collection is noted. Spleen is normal in size and enhancement. No adrenal nodules. Kidneys demonstrate normal size and enhancement, without hydronephrosis. Peritoneum and bowel: There is no evidence of bowel obstruction. No gross abnormal bowel wall thickening or mesenteric fat stranding. No free fluid or free air. Nodes and vessels: No retroperitoneal or mesenteric adenopathy by size criteria. Aorta and inferior vena cava are normal in size. Miscellaneous: No ventral hernias. PELVIS: Genitourinary: Bladder wall thickness is normal. Miscellaneous: No inguinal hernias. Nonspecific mildly prominent bilateral inguinal lymph nodes are seen measures up to 1 cm in short axis diameter. Bones: No suspicious bony lesions. No vertebral body compression fractures. IMPRESSION: 1. Stable appearing subcentimeter pulmonary nodules in bilateral lung tristan measures up to 4-5 mm in posterior aspect of right lower lobe, not significant changed from prior study and likely represent benign process. 2. Post Whipple's procedure changes in the epigastric region. Pneumobilia, unchanged from prior study. Atrophic appearing body and tail of pancreas with coarse dystrophic calcifications. 3. Nonspecific prominent right hilar lymph node and borderline enlarged bilateral inguinal lymph nodes. No mesenteric or retroperitoneal lymphadenopathy. 4. No bowel structure. No free fluid or free air. Dictated by: Ivan Grace M.D. on 03/06/2019 at 15:15 Approved by: Ivan Grace M.D. on 03/06/2019 at 15:36
== END ==
PROVIDERS: Family Provider Student in an Organized Health Care Education/Training Program; PCP Student in an Organized Health Care Education/Training Program; Visit Provider Surgery
DX: Z08 Encounter for follow-up examination after completed treatment for malignant neoplasm (principal); Z85.07 Personal history of malignant neoplasm of pancreas; R91.8 Other nonspecific abnormal finding of lung field; Z90.49 Acquired absence of other specified parts of digestive tract
CPT/HCPCS: 71260; 74177; Q9967

== ENCOUNTER 2019-03-20 09:53 | Day surgery (SDC) | payer MEDICARE, SELFPAY ==
[2019-03-09 09:32] VITALS: BMI 22.9
--- NOTE | 2019-03-19 15:29 | SUR.PREOP ---
Dr. Pride notified pt expecting local anesthesia for this procedure and wishes to drive home afterward. MD agreeable to plan. Also, discussed with MD pt's insulin orders for the morning. She recommended patient take half his morning dose. Pt notified but had additional questions. Pt's call transferred to Dr. Pride's office to discuss questions.
--- NOTE | 2019-03-20 | PATH_ITS ---
[facility] Accession Number: [id number] . 01 Material submitted: . body - PORT-A-CATH . 02 Diagnosis: Port-A-Cath, Removal: Gross only diagnosis. MRV/03/22/2019 . 02 Electronically signed: . Rizwana Luciano MD, Pathologist NPI- [id number] . 01 Gross description: . Received in formalin, labeled Port-A-Cath, is a purple implantable port (2.8 x 2.8 x 1.1 cm), stamped BARD [id number], and a portion of white plastic catheter (length-25.4 cm, diameter-0.3 cm). A scant amount of red-brown unremarkable tissue is attached. The specimen is for gross description only. ([id number]) /MRV . 02 Pathologist provided ICD-10: Z45.2 . 02 CPT . 549621 Performed at: 01 [facility] [address] [place] [id number] MD Jason Waters MD Phone: [phone] Performed at: 02 [facility] [address] [place], [place] [id number] MD Rizwana Luciano MD Phone: [phone]
[2019-03-20 10:27] VITALS: BP 122/68; PULSE 48; RESP 16; TEMP 36.4; O2SAT 96; BMI 22.9
[2019-03-20] MEDS: LACTATED RINGERS 1,000 ML 42 ML IV (10:30)
--- NOTE | 2019-03-20 10:33 | PM.PREOP ---
Pre-operative Note Interval Note History & Physical reviewed/Exam performed by Physician: Yes Changes to H&P: No
--- NOTE | 2019-03-20 11:20 | SUR.OPER ---
Supine on padded OR bed, head on pillow, operative arm padded and tucked at side, non-operative arm on padded arm board, legs uncrossed, safety belt at thigh, tape over blanket over lower legs .
[2019-03-20] MEDS: CEFAZOLIN 2 GM/100 ML FROZ.PIGGY IV (11:24)
[2019-03-20] MEDS: BUPIVACAINE 0.25% W/ EPI 30 ML VIAL INJ (11:26)
[2019-03-20 12:04] VITALS: PULSE 51; RESP 14; TEMP 36.5; O2SAT 99
--- NOTE | 2019-03-20 12:15 | P.OP_ITS ---
Operative Date/Time/Diagnoses Date of procedure: 03/20/19 Time of procedure: 12:07 Pre-op diagnosis: Foreign body of left chest wall Post-op diagnosis: same Procedure & Clinicians Procedure: Port removal Same procedure as scheduled: Yes Indications: 73yo over 7 years out of cancer treatment with no further need of port presents for removal. Per pt request, he only wants local anesthesia and no sedation. Surgeon: Caty Tabler Click Yes if Unassisted: Yes Anesthesia Type: Local Operative Notes Findings: Fibrotic tract all the way to vein. Closure Type: primary Specimen(s): other (port) Estimated Blood Loss (mL): 3 Procedure in detail: The patient was taken to the operating room and placed in the on the operating table in supine position. A timeout is performed with the team present. The left neck and chest was prepped and draped in the usual sterile fashion. Local anesthesia is infiltrated over the incision site. Using a 15 blade scalpel, a small incision was made in the skin over the prior incision on the left anterior chest. This was carried down through the subcutaneous tissues with electrocautery. The fibrous capsule around the port is encountered. This is opened and the port grasped. The anchoring sutures are cut. Once free, a purse string 3-0 vicryl is placed around the catheter. The fibrous tract required careful blunt dissection for much of the way as the catheter did not release easily. Once free, it was noted to have an intact e kai. The catheter is removed and the suture tied down. Pressure is held under the clavicle. The port is removed and sent off the field. The fibrous capsule and old sutures are cut away. Hemostasis is ensured. The field is irrigated and dried. 3-0 vicryl was used to reapproximate the deep subcutaenous tissues then the deep dermis in an interrupted fashion. The skin was closed using 4-0 monocryl in a running subcuticular fashion. The area was cleaned and dried. Dermabond was placed over the incision and the access site. The patient tolerated the procedure well. The patient was taken to the PACU in stable condition. All counts were correct at the end of the procedure. Complications: none Condition: stable Disposition: PACU
[2019-03-20 12:16] VITALS: BP 133/61; PULSE 48; RESP 12; TEMP 36.5; O2SAT 97
== END 2019-03-20 12:28 | disposition home or self-care (01) ==
PROVIDERS: Family Provider Student in an Organized Health Care Education/Training Program; PCP Student in an Organized Health Care Education/Training Program; Visit Provider Surgery
PROC: (CPT 36590; principal; 2019-03-20 11:15)
DX: Z45.2 Encounter for adjustment and management of vascular access device (principal); F17.210 Nicotine dependence, cigarettes, uncomplicated; Z85.07 Personal history of malignant neoplasm of pancreas
CPT/HCPCS: 36590; 88300; J0690

== ENCOUNTER → 2019-07-27 10:11 | Outpatient (CLI) | payer MEDICARE, SELFPAY ==
[2019-07-27 11:48] LABS: Creatinine Urine Random 138.9 mg/dL
[2019-07-27 11:53] LABS: Microalbumi Creatinin Ratio Ur 4.3 ug/mg CR (<30); Microalbumin Urine Random < 0.6 mg/dL (0-1.6)
[2019-07-27 12:01] LABS: Alanine Aminotransferase 65 IU/L (<50); Albumin 4.2 g/dL (3.5-5.0); Albumin Globulin Ratio 1.7 (1.0-2.8); Alkaline Phosphatase 169 U/L (38-126); Aspartate Aminotransferase 61 IU/L (17-59); BUN Creatinine Ratio 27.8 (6-22); Bilirubin Total 0.9 mg/dL (0.2-1.3); Blood Urea Nitrogen 25 mg/dL (9-20); Calcium 9.6 mg/dL (8.4-10.2); Carbon Dioxide 27 mmol/L (22-32); Chloride 106 mmol/L (98-107); Cholesterol 140 mg/dL (140-199); Estimated Glomerular Filt Rate > 60.0 mL/min (>60); Globulin 2.5 g/dL (1.7-4.1); Glucose 112 mg/dL (80-110); HDL Cholesterol 70 mg/dL (40-60); HEMOLYSIS < 15 (0-50); LDL Cholesterol Calculated 58 mg/dL (<100); Potassium 4.9 mmol/L (3.4-5.1); Sodium 140 mmol/L (137-145); Total Protein 6.7 g/dL (6.3-8.2); Triglycerides 60 mg/dL (35-150); VLDL Cholesterol Calculated 12 mg/dL (2-30)
== END ==
PROVIDERS: Family Provider Student in an Organized Health Care Education/Training Program; PCP Student in an Organized Health Care Education/Training Program; Visit Provider Internal Medicine Endocrinology, Diabetes & Metabolism
DX: E10.65 Type 1 diabetes mellitus with hyperglycemia (principal)
CPT/HCPCS: 36415; 80053; 80061; 82043; 82570

== ENCOUNTER → 2019-10-01 13:13 | Outpatient (CLI) | payer MEDICARE, SELFPAY ==
[2019-10-01 16:57] LABS: Alanine Aminotransferase 55 IU/L (<50); Albumin 4.2 g/dL (3.5-5.0); Albumin Globulin Ratio 1.4 (1.0-2.8); Alkaline Phosphatase 182 U/L (38-126); Aspartate Aminotransferase 48 IU/L (17-59); Bilirubin Total 0.8 mg/dL (0.2-1.3); Bilirubin Unconjugated 0.7 mg/dL (0.0-1.1); Globulin 2.9 g/dL (1.7-4.1); HEMOLYSIS < 15 (0-50); Total Protein 7.1 g/dL (6.3-8.2)
== END ==
PROVIDERS: Family Provider Student in an Organized Health Care Education/Training Program; PCP Student in an Organized Health Care Education/Training Program; Referring Provider Internal Medicine Endocrinology, Diabetes & Metabolism; Visit Provider Internal Medicine Endocrinology, Diabetes & Metabolism
DX: E10.65 Type 1 diabetes mellitus with hyperglycemia (principal)
CPT/HCPCS: 36415; 80076

== ENCOUNTER → 2019-10-16 15:25 | Outpatient (CLI) | payer MEDICARE, SELFPAY ==
[2019-10-16 17:28] LABS: Alanine Aminotransferase 115 IU/L (<50); Albumin 4.1 g/dL (3.5-5.0); Albumin Globulin Ratio 1.5 (1.0-2.8); Alkaline Phosphatase 259 U/L (38-126); Aspartate Aminotransferase 307 IU/L (17-59); Bilirubin Total 1.4 mg/dL (0.2-1.3); Bilirubin Unconjugated 0.9 mg/dL (0.0-1.1); Globulin 2.7 g/dL (1.7-4.1); HEMOLYSIS < 15 (0-50); Total Protein 6.8 g/dL (6.3-8.2)
== END ==
PROVIDERS: Family Provider Student in an Organized Health Care Education/Training Program; PCP Student in an Organized Health Care Education/Training Program; Referring Provider Internal Medicine Endocrinology, Diabetes & Metabolism; Visit Provider Internal Medicine Endocrinology, Diabetes & Metabolism
DX: E10.65 Type 1 diabetes mellitus with hyperglycemia (principal)
CPT/HCPCS: 36415; 80076

== ENCOUNTER → 2019-10-25 10:35 | Outpatient (CLI) | payer MEDICARE, SELFPAY ==
[2019-10-28 11:35] LABS: Hepatitis A Antibody IgM NONREACTIVE; Hepatitis Acute Panel Interp 0.02; Hepatitis B Core Antibody IgM NONREACTIVE; Hepatitis B Surface Antigen NONREACTIVE; Hepatitis C Antibody NONREACTIVE
[2019-10-30 12:49] LABS: Alkaline Phosphatase 219 U/L (35-144)
== END ==
PROVIDERS: Family Provider Student in an Organized Health Care Education/Training Program; PCP Student in an Organized Health Care Education/Training Program; Referring Provider Internal Medicine Endocrinology, Diabetes & Metabolism; Visit Provider Internal Medicine Endocrinology, Diabetes & Metabolism
DX: R94.5 Abnormal results of liver function studies (principal); E10.65 Type 1 diabetes mellitus with hyperglycemia
CPT/HCPCS: 36415; 80074; 84080

== ENCOUNTER → 2019-10-29 09:50 | Outpatient (CLI) | payer MEDICARE, SELFPAY ==
--- NOTE | 2019-10-29 | DI.US.S_ITS ---
PROCEDURE: US ABDOMEN LIMITED INDICATIONS: ABN LFT'S TECHNIQUE: Real-time focused scanning was performed of the abdomen, with image documentation. COMPARISON: None. FINDINGS: Limited evaluation at clinician request. The liver appears normal, without intrahepatic biliary distention or mass. The gallbladder has been previously resected. There is mild pneumobilia. The common duct measures 4 mm. IMPRESSION: Prior cholecystectomy. No focal liver lesion seen. Mild pneumobilia, within the nondistended common duct. Dictated by: Julio Ospina M.D. on 10/29/2019 at 11:48 Approved by: Julio Ospina M.D. on 10/29/2019 at 11:49
== END ==
PROVIDERS: Family Provider Student in an Organized Health Care Education/Training Program; PCP Student in an Organized Health Care Education/Training Program; Referring Provider Student in an Organized Health Care Education/Training Program; Visit Provider Internal Medicine Endocrinology, Diabetes & Metabolism
DX: R94.5 Abnormal results of liver function studies (principal); E10.65 Type 1 diabetes mellitus with hyperglycemia; Z90.49 Acquired absence of other specified parts of digestive tract
CPT/HCPCS: 76705

== ENCOUNTER → 2020-09-02 14:35 | Outpatient (CLI) | payer MEDICARE, SELFPAY ==
[2020-09-02 15:14] LABS: Add Manual Diff / Slide Review NO; Basophils Absolute Auto 0 /uL (0-100); Basophils Percent Auto 0.6 % (0-2); Eosinophils Absolute Auto 200 /uL (0-450); Eosinophils Percent Auto 3.2 % (2-4); Hematocrit 42.7 % (41-53); Hemoglobin 14.5 g/dL (13.5-17.5); Lymphocytes Absolute Auto 1400 /uL (1100-4500); Mean Corpuscular HGB Conc 33.9 % (30-36); Mean Corpuscular Hemoglobin 31.6 PG (26-34); Mean Corpuscular Volume 93.1 fL (80-100); Monocytes Absolute Auto 300 /uL (0-900); Monocytes Percent Auto 5.8 % (3-14); Neutrophils Absolute Auto 3300 /uL (1500-7000); Neutrophils Percent Auto 63.4 % (50-75); Platelet Count 148 X10^3/uL (150-400); Red Blood Cell Count 4.59 X10^6/uL (4.5-5.9); Red Cell Distribution Width 14.3 % (11.6-14.8); White Blood Cell Count 5.2 X10^3/uL (4.5-11.0)
[2020-09-02 15:23] LABS: INR 1.1 (0.9-1.3); Prothrombin Time 12.1 SECONDS (10.1-12.7)
[2020-09-02 15:37] LABS: Alanine Aminotransferase 44 IU/L (<50); Albumin 4.1 g/dL (3.5-5.0); Albumin Globulin Ratio 1.6 (1.0-2.8); Alkaline Phosphatase 253 U/L (38-126); Aspartate Aminotransferase 44 IU/L (17-59); Bilirubin Total 0.6 mg/dL (0.2-1.3); Bilirubin Unconjugated 0.7 mg/dL (0.0-1.1); Globulin 2.6 g/dL (1.7-4.1); HEMOLYSIS < 15 (0-50); Total Protein 6.7 g/dL (6.3-8.2)
[2020-09-02 17:22] LABS: Vitamin D 25 Hydroxy (D3) 40.6 ng/mL (30.0-100.0)
[2020-09-06 17:15] LABS: Alpha-Tocopherol 4.2 mg/L (9.0-29.0); Gamma-Tocopherol 1.1 mg/L (0.5-4.9)
== END ==
PROVIDERS: Family Provider Student in an Organized Health Care Education/Training Program; PCP Student in an Organized Health Care Education/Training Program; Referring Provider Internal Medicine Gastroenterology; Visit Provider Internal Medicine Gastroenterology
DX: K86.89 Other specified diseases of pancreas (principal); C25.9 Malignant neoplasm of pancreas, unspecified; R19.7 Diarrhea, unspecified
CPT/HCPCS: 36415; 80076; 82248; 82306; 84446; 84590; 85025; 85610

== ENCOUNTER → 2020-10-31 08:10 | Outpatient (CLI) | payer MEDICARE, SELFPAY ==
[2020-10-31 09:40] LABS: Creatinine Urine Random 88.2 mg/dL
[2020-10-31 09:46] LABS: BUN Creatinine Ratio 16.8 (6-22); Blood Urea Nitrogen 16 mg/dL (9-20); Calcium 9.4 mg/dL (8.4-10.2); Carbon Dioxide 27 mmol/L (22-32); Chloride 106 mmol/L (98-107); Cholesterol 116 mg/dL (140-199); Estimated Glomerular Filt Rate > 60.0 mL/min (>60); Glucose 147 mg/dL (80-110); HDL Cholesterol 66 mg/dL (40-60); HEMOLYSIS < 15 (0-50); LDL Cholesterol Calculated 38 mg/dL (<100); Potassium 4.2 mmol/L (3.4-5.1); Sodium 137 mmol/L (137-145); Triglycerides 58 mg/dL (35-150)
[2020-10-31 09:55] LABS: Microalbumin Urine Random < 0.6 mg/dL (0-1.6)
== END ==
PROVIDERS: Family Provider Student in an Organized Health Care Education/Training Program; PCP Student in an Organized Health Care Education/Training Program; Referring Provider Internal Medicine Endocrinology, Diabetes & Metabolism; Visit Provider Internal Medicine Endocrinology, Diabetes & Metabolism
DX: E10.65 Type 1 diabetes mellitus with hyperglycemia (principal); R94.5 Abnormal results of liver function studies
CPT/HCPCS: 36415; 80048; 80061; 82043; 82570

== ENCOUNTER → 2020-11-03 14:38 | Outpatient (CLI) | payer MEDICARE, SELFPAY ==
[2020-11-03 15:38] LABS: COVID19 -Nasal RAPID Negative (Negative)
== END ==
PROVIDERS: Family Provider Student in an Organized Health Care Education/Training Program; PCP Student in an Organized Health Care Education/Training Program; Visit Provider Physician Assistant
DX: Z20.822 Contact with and (suspected) exposure to COVID-19 (principal)
CPT/HCPCS: 87635

== ENCOUNTER 2020-11-04 09:03 | Day surgery (SDC) | payer MEDICARE, SELFPAY ==
[2020-11-04 09:42] VITALS: BP 133/95; PULSE 75; RESP 16; TEMP 36.6; O2SAT 99; BMI 23.2
[2020-11-04] MEDS: CATARACT EYE COMPOUND (10 DROPS/SYRINGE) 3 DROPS EYE-OP (09:54)
[2020-11-04] MEDS: PROPARACAINE 0.5% OPHTH SOL 2 DROPS EYE-OP (09:55)
--- NOTE | 2020-11-04 10:21 | PM.PREOP ---
Pre-operative Note Interval Note History & Physical reviewed/Exam performed by Physician: Yes Changes to H&P: No
--- NOTE | 2020-11-04 10:21 | PM.OP.1 ---
Operative Date/Time/Diagnoses Pre-op diagnosis: Nuclear Cataract Left eye Post-op diagnosis: same Procedure & Clinicians Same procedure as scheduled: Yes Surgeon: Rashad Posey Anesthesia Type: MAC +/- and Sedation Operative Notes Procedure in detail: Patient brought to the operating suite. Tetracaine drops placed in the left eye. Marking instrument was used to serge vertical and horizontal meridians. Patient was prepped and draped in sterile manner. Wire lid speculum was placed in the eye. Marking instrument was used to serge 165 degree meridian. Betadine drops were placed on the eye. This was irrigated. Lidocaine jelly was placed on the eye. A paracentesis port was created with a side-port blade. 0.1 mL 1% preservative free lidocaine was injected into the anterior chamber. The anterior chamber was deepened with viscoelastic. 2.6 mm keratome was used to create a temporal clear corneal incision. Cystotome and Utrata forceps were used to create continuous tear capsulorrhexis. Balanced salt solution was used to hydro dissect the nucleus. The phacoemulsification handpiece was inserted and the nucleus was removed using the stop and chop technique. The irrigation aspiration handpiece was inserted and the remaining cortex was removed. Anterior chamber was deepened with viscoelastic. An Zaldivar [id number] intraocular lens with a power of 22.0 was injected into the capsular bag. Irrigation aspiration handpiece was inserted and the remaining viscoelastic was removed. The lens was rotated to the 165 degree meridian. Incision was hydrated with balanced salt solution and found to be leak free with pressure with Weck-Yani sponges. 0.1 mL Vigamox injected anterior chamber. 0.3 mL Kenalog 10 mg was injected subconjunctivally. Lid speculum was removed. The patient left the operating room in excellent condition. Complications: none Post-operative Condition: stable Disposition: same day surgery
[2020-11-04] MEDS: PHENYLEPHRINE/LIDOCAINE VIAL (OR) 0.2 ML EYE-OP (10:39)
[2020-11-04] MEDS: CHONDROIDTIN/SOD HYALURONATE 1.05 ML SYRINGE INTRAOCULA (10:39)
[2020-11-04] MEDS: LIDOCAINE JELLY 2% 5 ML 1 APPLIC TOP (10:39)
[2020-11-04] MEDS: MOXIFLOXACIN INJ 5 MG/ML VIAL EYE-OP (10:39)
[2020-11-04] MEDS: TETRACAINE 0.5% OPHTH DROPS 4 ML 2 DROPS EYE-OP (10:40)
[2020-11-04] MEDS: BALANCED SALT IRRIG SOLN NO.2 500 ML, EPINEPHrine 1 MG IRR (10:40)
[2020-11-04] MEDS: TRIAMCINOLONE 50 MG/5 ML VIAL INJ (10:40)
[2020-11-04 10:55] VITALS: BP 134/64; PULSE 47; RESP 16; TEMP 36.2; O2SAT 97
== END 2020-11-04 11:10 | disposition home or self-care (01) ==
PROVIDERS: Family Provider Student in an Organized Health Care Education/Training Program; PCP Student in an Organized Health Care Education/Training Program; Referring Provider Ophthalmology; Visit Provider Ophthalmology
PROC: (CPT 66984; principal; 2020-11-04 10:45)
DX: H25.12 Age-related nuclear cataract, left eye (principal); E11.9 Type 2 diabetes mellitus without complications; Z79.4 Long term (current) use of insulin
CPT/HCPCS: 66984; J0171; J2250; J3010; J3301; V2787

== ENCOUNTER → 2020-11-15 10:32 | Outpatient (CLI) | payer MEDICARE, SELFPAY ==
[2020-11-15 11:24] LABS: COVID19 -Nasal RAPID Negative (Negative)
== END ==
PROVIDERS: Family Provider Student in an Organized Health Care Education/Training Program; PCP Student in an Organized Health Care Education/Training Program; Visit Provider Physician Assistant
DX: Z20.822 Contact with and (suspected) exposure to COVID-19 (principal)
CPT/HCPCS: 87635; C9803

== ENCOUNTER 2020-11-18 06:51 | Day surgery (SDC) | payer MEDICARE, SELFPAY ==
[2020-11-18] MEDS: PROPARACAINE 0.5% OPHTH SOL 2 DROPS EYE-OP (07:17)
[2020-11-18] MEDS: CATARACT EYE COMPOUND (10 DROPS/SYRINGE) 3 DROPS EYE-OP (07:17)
[2020-11-18 07:23] VITALS: BP 118/64; PULSE 47; RESP 16; TEMP 36.4; O2SAT 97; BMI 23.1
--- NOTE | 2020-11-18 08:01 | P.OP_ITS ---
Operative Date/Time/Diagnoses Pre-op diagnosis: Nuclear cataract right eye Procedure & Clinicians Procedure: Cataract Surgery Same procedure as scheduled: Yes Surgeon: Rashad Posey Anesthesia Type: MAC +/- and Sedation Operative Notes Procedure in detail: Patient brought to the operating suite. Tetracaine drops placed in the right eye. The vertical and horizontal meridians were marked with the marking instrument. Patient was prepped and draped in sterile manner. Wire lid speculum was placed in the eye. The marking instrument was used to serge the 25 degree meridian. Betadine drops were placed on the eye. This was irrigated. Lidocaine jelly was placed on the eye. A paracentesis port was created with a side-port blade. 0.1 mL 1% preservative free lidocaine was injected into the anterior chamber. The anterior chamber was deepened with viscoelastic. 2.6 mm keratome was used to create a temporal clear corneal incision. Cystotome and Utrata forceps were used to create continuous tear capsulorrhexis. Balanced salt solution was used to hydro dissect the nucleus. The phacoemulsification handpiece was inserted and the nucleus was removed using the stop and chop technique. The irrigation aspiration handpiece was inserted and the remaining cortex was removed. Anterior chamber was deepened with viscoelastic. An Zaldivar [id number] intraocular lens with a power of 22.5 was injected into the capsular bag. Irrigation aspiration handpiece was inserted and the remaining viscoelastic was removed. The lens was rotated to the 25 degree meridian. Incision was hydrated with balanced salt solution and found to be leak free with pressure with Weck- Yani sponges. 0.1 mL Vigamox injected anterior chamber. 0.3 mL Kenalog 10 mg was injected subconjunctivally. Lid speculum was removed. The patient left the operating room in excellent condition. Complications: none Post-operative Condition: stable Disposition: same day surgery
--- NOTE | 2020-11-18 08:01 | PM.PREOP ---
Pre-operative Note Interval Note History & Physical reviewed/Exam performed by Physician: Yes Changes to H&P: No
[2020-11-18] MEDS: PHENYLEPHRINE/LIDOCAINE VIAL (OR) 0.2 ML EYE-OP (08:15)
[2020-11-18] MEDS: MOXIFLOXACIN INJ 5 MG/ML VIAL EYE-OP (08:15)
[2020-11-18] MEDS: CHONDROIDTIN/SOD HYALURONATE 1.05 ML SYRINGE INTRAOCULA (08:15)
[2020-11-18] MEDS: BALANCED SALT IRRIG SOLN NO.2 500 ML, EPINEPHrine 1 MG IRR (08:16)
[2020-11-18] MEDS: TETRACAINE 0.5% OPHTH DROPS 4 ML 2 DROPS EYE-OP (08:16)
[2020-11-18] MEDS: TRIAMCINOLONE 50 MG/5 ML VIAL INJ (08:16)
[2020-11-18] MEDS: LIDOCAINE 2% (GLYDO) 6 ML GEL TOP (08:17)
[2020-11-18 08:39] VITALS: BP 139/65; PULSE 42; RESP 16; TEMP 36.6; O2SAT 100
--- NOTE | 2020-11-18 08:46 | SUR.PHASEII ---
Wanting to go, called, pt left when ready and left in stable condition.
== END 2020-11-18 08:46 | disposition home or self-care (01) ==
PROVIDERS: Family Provider Student in an Organized Health Care Education/Training Program; PCP Student in an Organized Health Care Education/Training Program; Referring Provider Student in an Organized Health Care Education/Training Program; Visit Provider Ophthalmology
PROC: (CPT 66984; principal; 2020-11-18 08:15)
DX: H25.11 Age-related nuclear cataract, right eye (principal); E11.9 Type 2 diabetes mellitus without complications; Z79.4 Long term (current) use of insulin
CPT/HCPCS: 66984; J0171; J2250; J3301; V2787

== ENCOUNTER → 2021-10-27 10:08 | Outpatient (CLI) | payer MEDICARE, SELFPAY ==
[2021-10-27 14:33] LABS: Alanine Aminotransferase 45 IU/L (<50); Albumin 4.1 g/dL (3.5-5.0); Albumin Globulin Ratio 1.5 (1.0-2.8); Alkaline Phosphatase 158 U/L (38-126); Aspartate Aminotransferase 52 IU/L (17-59); BUN Creatinine Ratio 16.7 (6-22); Bilirubin Total 0.8 mg/dL (0.2-1.3); Blood Urea Nitrogen 16 mg/dL (9-20); Calcium 9.1 mg/dL (8.4-10.2); Carbon Dioxide 26 mmol/L (22-32); Chloride 108 mmol/L (98-107); Cholesterol 115 mg/dL (140-199); Estimated Glomerular Filt Rate > 60.0 mL/min (>60); Globulin 2.7 g/dL (1.7-4.1); Glucose 125 mg/dL (80-110); HDL Cholesterol 62 mg/dL (40-60); HEMOLYSIS < 15 (0-50); LDL Cholesterol Calculated 41 mg/dL (<100); Potassium 4.8 mmol/L (3.4-5.1); Sodium 139 mmol/L (137-145); Total Protein 6.8 g/dL (6.3-8.2); Triglycerides 59 mg/dL (35-150)
[2021-10-27 16:18] LABS: Creatinine Urine Random 71.9 mg/dL
[2021-10-27 17:01] LABS: Microalbumin Urine Random < 0.6 mg/dL (0-1.6)
== END ==
PROVIDERS: Family Provider Student in an Organized Health Care Education/Training Program; PCP Student in an Organized Health Care Education/Training Program; Referring Provider Internal Medicine Endocrinology, Diabetes & Metabolism; Visit Provider Internal Medicine Endocrinology, Diabetes & Metabolism
DX: E10.65 Type 1 diabetes mellitus with hyperglycemia (principal); E16.2 Hypoglycemia, unspecified; C25.9 Malignant neoplasm of pancreas, unspecified; R19.7 Diarrhea, unspecified; Q89.9 Congenital malformation, unspecified
CPT/HCPCS: 36415; 80053; 80061; 82043; 82570

== ENCOUNTER → 2021-11-10 08:32 | Outpatient (CLI) | payer MEDICARE, SELFPAY ==
[2021-11-10 09:49] LABS: Add Manual Diff / Slide Review NO; Basophils Absolute Auto 0 /uL (0-100); Basophils Percent Auto 0.5 % (0-2); Eosinophils Absolute Auto 200 /uL (0-450); Eosinophils Percent Auto 5.9 % (2-4); Hematocrit 42.3 % (41-53); Hemoglobin 14.6 g/dL (13.5-17.5); Lymphocytes Absolute Auto 1400 /uL (1100-4500); Lymphocytes Percent Auto 33.6 % (25-40); Mean Corpuscular HGB Conc 34.5 % (30-36); Mean Corpuscular Hemoglobin 31.6 PG (26-34); Mean Corpuscular Volume 91.8 fL (80-100); Monocytes Absolute Auto 400 /uL (0-900); Monocytes Percent Auto 8.8 % (3-14); Neutrophils Absolute Auto 2100 /uL (1500-7000); Neutrophils Percent Auto 51.2 % (50-75); Platelet Count 132 X10^3/uL (150-400); Red Blood Cell Count 4.61 X10^6/uL (4.5-5.9); Red Cell Distribution Width 14.4 % (11.6-14.8); White Blood Cell Count 4.1 X10^3/uL (4.5-11.0)
[2021-11-10 09:55] LABS: Prothrombin Time 11.6 SECONDS (10.1-12.7)
[2021-11-10 09:57] LABS: Hemoglobin A1C% w Est Avg Glu 6.2 % (4.0-6.0)
[2021-11-10 10:37] LABS: Alanine Aminotransferase 59 IU/L (<50); Albumin 3.9 g/dL (3.5-5.0); Albumin Globulin Ratio 1.5 (1.0-2.8); Alkaline Phosphatase 154 U/L (38-126); Aspartate Aminotransferase 51 IU/L (17-59); BUN Creatinine Ratio 15.1 (6-22); Bilirubin Total 0.8 mg/dL (0.2-1.3); Blood Urea Nitrogen 14 mg/dL (9-20); Calcium 9.1 mg/dL (8.4-10.2); Carbon Dioxide 25 mmol/L (22-32); Chloride 108 mmol/L (98-107); Estimated Glomerular Filt Rate > 60.0 mL/min (>60); Globulin 2.6 g/dL (1.7-4.1); Glucose 115 mg/dL (80-110); HEMOLYSIS < 15 (0-50); Potassium 4.4 mmol/L (3.4-5.1); Sodium 138 mmol/L (137-145); Total Protein 6.5 g/dL (6.3-8.2)
[2021-11-10 11:04] LABS: Vitamin D 25 Hydroxy (D3) 30.6 ng/mL (30.0-100.0)
[2021-11-12 17:21] LABS: Anti Mitochondrial ABY IGG <20.0 Units (0.0-20.0)
[2021-11-16 09:36] LABS: Alpha-Tocopherol 6.2 mg/L (9.0-29.0); Gamma-Tocopherol 0.8 mg/L (0.5-4.9)
[2021-11-19 00:07] LABS: Vitamin A 33.1 ug/dL (22.0-69.5)
== END ==
PROVIDERS: Family Provider Student in an Organized Health Care Education/Training Program; PCP Student in an Organized Health Care Education/Training Program; Referring Provider Internal Medicine Gastroenterology; Visit Provider Internal Medicine Gastroenterology
DX: R74.8 Abnormal levels of other serum enzymes (principal); K86.89 Other specified diseases of pancreas
CPT/HCPCS: 36415; 80053; 82306; 83036; 83516; 83915; 84446; 84590; 85025; 85610

== ENCOUNTER → 2022-10-26 11:45 | Outpatient (CLI) | payer MEDICARE, SELFPAY ==
[2022-10-26 13:17] LABS: BUN Creatinine Ratio 18.4 (6-22); Blood Urea Nitrogen 16 mg/dL (9-20); Calcium 9.2 mg/dL (8.4-10.2); Carbon Dioxide 29 mmol/L (22-32); Chloride 108 mmol/L (98-107); Estimated Glomerular Filt Rate > 60 mL/min (>60); Glucose 93 mg/dL (80-110); HEMOLYSIS < 15 (0-50); Sodium 141 mmol/L (137-145)
[2022-10-26 13:34] LABS: Potassium 4.6 mmol/L (3.4-5.1)
== END ==
PROVIDERS: Family Provider Student in an Organized Health Care Education/Training Program; PCP Student in an Organized Health Care Education/Training Program; Referring Provider Internal Medicine Endocrinology, Diabetes & Metabolism; Visit Provider Internal Medicine Endocrinology, Diabetes & Metabolism
DX: E10.65 Type 1 diabetes mellitus with hyperglycemia (principal); I10 Essential (primary) hypertension
CPT/HCPCS: 36415; 80048

== ENCOUNTER → 2022-11-11 11:55 | Outpatient (CLI) | payer MEDICARE, SELFPAY ==
[2022-11-11 13:09] LABS: BUN Creatinine Ratio 18.9 (6-22); Blood Urea Nitrogen 17 mg/dL (9-20); Carbon Dioxide 28 mmol/L (22-32); Chloride 106 mmol/L (98-107); Estimated Glomerular Filt Rate > 60 mL/min (>60); Glucose 120 mg/dL (80-110); HEMOLYSIS < 15 (0-50); Potassium 4.5 mmol/L (3.4-5.1); Sodium 140 mmol/L (137-145)
== END ==
PROVIDERS: Family Provider Student in an Organized Health Care Education/Training Program; PCP Student in an Organized Health Care Education/Training Program; Referring Provider Internal Medicine Endocrinology, Diabetes & Metabolism; Visit Provider Internal Medicine Endocrinology, Diabetes & Metabolism
DX: R79.89 Other specified abnormal findings of blood chemistry (principal); E10.65 Type 1 diabetes mellitus with hyperglycemia; I10 Essential (primary) hypertension
CPT/HCPCS: 36415; 80048

== ENCOUNTER → 2023-01-04 14:40 | Outpatient (CLI) | payer MEDICARE, SELFPAY ==
--- NOTE | 2023-01-04 14:41 | DI.RAD.S_ITS ---
PROCEDURE: XR CHEST 2V INDICATIONS: chest pain TECHNIQUE: 2 views of the chest were acquired. COMPARISON: None. FINDINGS: Surgical changes and devices: None. Lungs and pleura: Lungs are clear. No pleural effusions or pneumothorax. Mediastinum: Mediastinal contours are normal. Heart size is normal. Bones and chest wall: No suspicious bony abnormalities. Soft tissues appear unremarkable. IMPRESSION: No acute cardiopulmonary disease process. Dictated by: Jaquelin Lauren MD, PhD on 01/04/2023 at 15:29 Approved by: Jaquelin Lauren MD, PhD on 01/04/2023 at 15:30
== END ==
PROVIDERS: Family Provider Student in an Organized Health Care Education/Training Program; PCP Pediatrics; Referring Provider Internal Medicine; Visit Provider Internal Medicine
DX: R07.9 Chest pain, unspecified (principal)
CPT/HCPCS: 71046

== ENCOUNTER → 2023-01-18 11:23 | Outpatient (CLI) | payer MEDICARE, SELFPAY ==
[2023-01-18 12:43] LABS: BUN Creatinine Ratio 26.6 (6-22); Blood Urea Nitrogen 21 mg/dL (9-20); Carbon Dioxide 27 mmol/L (22-32); Chloride 108 mmol/L (98-107); Estimated Glomerular Filt Rate > 60 mL/min (>60); Glucose 99 mg/dL (80-110); HEMOLYSIS < 15 (0-50); Potassium 4.5 mmol/L (3.4-5.1); Sodium 139 mmol/L (137-145)
== END ==
PROVIDERS: Family Provider Student in an Organized Health Care Education/Training Program; PCP Pediatrics; Referring Provider Internal Medicine Endocrinology, Diabetes & Metabolism; Visit Provider Internal Medicine Endocrinology, Diabetes & Metabolism
DX: E10.65 Type 1 diabetes mellitus with hyperglycemia (principal); E16.2 Hypoglycemia, unspecified; I10 Essential (primary) hypertension
CPT/HCPCS: 36415; 80048

== ENCOUNTER 2023-03-04 07:54 | Emergency (ER) | payer MEDICARE, SELFPAY ==
[2023-03-04] VITALS (8 sets, daily range): BP systolic 139–167; BP diastolic 69–80; PULSE 46–60; RESP 16; TEMP 36.7; O2SAT 91–99; BMI 23.7
--- NOTE | 2023-03-04 08:30 | ED.BACK ---
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 Patient states yesterday he was putting in cramped POTS he twisted Procrit put down and into the water and felt pain which worsened throughout the night. Patient states pain is in his lower lumbar spine does go down his right leg somewhat, he tingling down his leg which is atypical. No weakness. No saddle anesthesia. No urinary or rectal incontinence. Patient states he is had back issues in the past he is did take oral narcotic at 1 tablet every 6 hours but was not helpful would have to crawl to the bathroom because he could not walk it was so painful. Patient denies fevers or chills, no chest pain, no shortness of breath, no vomiting, he got nauseous when the pain was very intense. No diarrhea or constipation, no loss of bowel or bladder control. Patient states he received medication with EMS which was very helpful. Patient's states his sugars have been well controlled. States his blood pressure has been slowly creeping up he has been talking to his planning official they have discussed about whether or not start blood pressure medication. He denies other surgeries besides his Whipple and an appendectomy. No prior back surgeries. No prior back interventions. No aspirin or anticoagulants. No known drug allergies. Former tobacco user, drinks 1 shot of whiskey nightly, no illicit. Dr. Dang is his PCP. Related Data Home Medications Medication Instructions Recorded Confirmed Insulin pump See Rx Instructions .Route .COMPLEX 06/20/18 01/04/23 insulin aspart U-100 100 unit/mL 60 units continuous subcutaneous 10/03/18 01/04/23 subcutaneous solution infusion DAILY [id number] 2 - 3 cap PO TIDWM 10/03/18 01/04/23 24,000-76,000-120,000 unit capsule,delayed rel colestipol 5 gram oral packet 5 gram PO DAILY 10/25/19 01/04/23 losartan 25 mg tablet 25 mg PO DAILY 01/04/23 01/04/23 Previous Rx's Medication Instructions Recorded loperamide 2 mg capsule (Imodium 2 mg PO Q2-4H PRN loose stool #240 12/10/19 A-D) caps buspirone 15 mg tablet 15 mg PO TID #270 tabs 05/12/22 meloxicam 15 mg tablet 15 mg PO DAILY #90 tabs 11/01/22 clonazepam 1 mg tablet (Klonopin) 1 mg PO BID PRN anxiety #60 tabs 01/04/23 ondansetron 4 mg disintegrating 4 mg PO Q6H PRN nausea and 03/04/23 tablet vomiting #10 tabs oxycodone 5 mg tablet 5 mg PO Q6H PRN pain #20 tabs 03/04/23 Allergies Allergy/AdvReac Type Severity Reaction Status Date / Time No Known Drug Allergies Allergy Verified 01/04/23 14:05 Review of Systems Review of Systems ROS Unobtainable: All systems reviewed & are unremarkable except as noted in HPI and below Patient History Medical History Anxiety (2013) Chronic diarrhea Depression (2013) Dermatophytosis History of malignant neoplasm of ampulla of Vater (2011) Mumps (~1950) Polio (~1948) Primary cancer of ampulla of Vater (2011) Shoulder pain (1999) Thrombocytopenia Surgical History History of surgery (2011) History of tonsillectomy (~1950) Status post appendectomy (~1950) Status post right foot surgery (1964) Family History Brother Age: 74 Diabetes mellitus Stroke Brother Age: 72 Osteoporosis Father Hyperlipidemia Heart disease IA (myocardial infarction) Mother Age: 100 Arthritis Diabetes mellitus Grandfather Diabetes mellitus Grandfather Dementia Grandmother Cancer Grandmother Alzheimer's disease Social History marital status: household members: spouse occupational status: previously employed Smoking Status: Former smoker alcohol intake: current substance use type: does not use Smoking Status: Former smoker alcohol intake frequency: 0-2 drinks per day Substance Use Type: does not use Exam Narrative Exam Narrative: GENERAL: Alert and oriented x three, well-appearing elderly male in mild distress. HEENT: Head normocephalic, atraumatic, EOMI, pupils reactive, face symmetric, moist mucous membranes NECK: Supple, full range of motion CARDIOVASCULAR: Regular rate and rhythm without murmurs, rubs or gallops. RESPIRATORY: Breath sounds equal bilaterally, no wheezes rales or rhonchi. ABDOMEN: Soft, nontender. Normoactive bowel sounds all 4 quadrants. No guarding or rebound, rigidity, no mass : No CVA tenderness BACK: No cervical, thoracic or lumbar vertebral point tenderness. Patient has positive for range of motion. Patient's gait is [antalgic/normal]. Rectal exam is deferred. Muscle strength is 5/5 in lower extremities, full range of motion. DTRs are 2/4 and lower extremities. Dorsalis pedis and tibialis pulses are 2+ and lower extremities. Sensation is intact in the lower extremities. EXTREMITIES: Normal range of motion, no clubbing or edema. Neurovascularly intact NEUROLOGICAL: Cranial nerves II through XII grossly intact. Moving all extremities SKIN: Warm, dry, no petechiae, no rashes or lesions. Initial Vital Signs Initial Vital Signs: Vital Signs Pulse Oximetry 98 03/04/23 07:57 Course Orders Ordered: Discontinued Medications Diazepam (Diazepam 2 Mg Tablet) 2 mg PO NOW ONE Stop: 03/04/23 08:45 Last Admin: 03/04/23 08:56 Dose: 2 mg Documented By: KALEN Morphine Sulfate (Morphine 4 Mg/Ml Inj) 4 mg IV NOW ONE Stop: 03/04/23 08:45 Last Admin: 03/04/23 08:56 Dose: 4 mg Documented By: CTS Ondansetron HCl (Ondansetron 4 Mg Odt) 4 mg SL NOW ONE Stop: 03/04/23 09:59 Last Admin: 03/04/23 10:08 Dose: 4 mg Documented By: CTS Oxycodone HCl (Oxycodone Ir 5 Mg Tablet) 10 mg PO NOW ONE Stop: 03/04/23 10:16 Last Admin: 03/04/23 10:08 Dose: 10 mg Documented By: CTS Vital Signs Vital signs: Vital Signs - 8 hr 03/04/23 08:02 03/04/23 07:57 03/04/23 07:58 Temperature 98.0 F Pulse Rate 50 L 46 L Respiratory Rate 16 Blood Pressure 162/80 H Pulse Oximetry 99 98 97 Oxygen Delivery Method Room Air 03/04/23 07:58 03/04/23 08:00 03/04/23 08:00 Temperature Pulse Rate 48 L Respiratory Rate Blood Pressure 167/76 H 162/80 H Pulse Oximetry 97 Oxygen Delivery Method 03/04/23 08:30 03/04/23 08:31 03/04/23 08:31 Temperature Pulse Rate 47 L 60 Respiratory Rate Blood Pressure 139/69 Pulse Oximetry 91 94 Oxygen Delivery Method MDM - Back Pain/Injury MDM Narrative Medical decision making narrative: This is a 77-year-old male with acute on chronic low back pain patient notes that he had a mechanism where he was lifting and then putting crap hats over into the water last night when he developed increased pain radiating down his right leg and a little bit of paresthesias in his right leg. He states they only extend to his knee. No other red flag symptoms. Patient has had back issues in the past no prior surgeries. Patient is feeling somewhat improved with EMS fentanyl which was given, we will give some longer-acting medication he would tried what sounds like Reserve at home he had a left over prescription. Discussed imaging with patient will defer unless patient is not able to ambulate after some additional pain medication, patient did have CT imaging that included his back as of 2019. Patient feels comfortable with this plan. Patient received additional dose of IV narcotic and oral muscle relaxer. Patient is feeling improved. He still has a little bit of pain. We will attempt ambulation trial patient was given a oral dose of pain medication as well. Patient ambulated well decided he did not need the walker was able to ambulate he is still uncomfortable, felt little nauseated he thought it might be the pain medications. We will give an additional dose of oral pain meds as well as antinausea medication here. Discharge Plan Departure Patient Disposition: Home Clinical Impression: Low back pain radiating to right lower extremity Instructions: DI for Back Pain With Sciatica Activity Restrictions/Additional Instructions: Follow-up in the next week with your physician if your symptoms are not continuing to improve. You may take Tylenol up to a 1000 mg every 6 hours and/or ibuprofen up to 600 mg every 6 hours. You may take oxycodone 1-2 tablets every 6 hours needed. This medication can make you sleepy do not drive, perform hazardous activities or make any major decisions while taking it. This medication will make you constipated please take a stool softener once to twice daily until stools are soft and regular. Prescription sent to [facility] in [place]. Please return for worsening symptoms, inability to lift or move your legs, new loss of bowel or bladder control, rapidly worsening pain, new numbness, weakness or loss sensation in your lower extremity, inability to walk or ambulate or other new or concerning changes. Prescriptions: New ondansetron 4 mg tablet,disintegrating 4 mg PO Q6H PRN (Reason: nausea and vomiting) Qty: 10 0RF oxycodone 5 mg tablet 5 mg PO Q6H PRN (Reason: pain) Qty: 20 0RF No Action Insulin pump See Rx Instructions .ROUTE .COMPLEX Patient Comments: Managed by planning official. Rx Instructions: Managed by planning official. loperamide [Imodium A-D] 2 mg capsule 2 mg PO Q2-4H PRN (Reason: loose stool) Qty: 240 5RF Rx Instructions: With each loose stool meloxicam 15 mg tablet 15 mg PO DAILY Qty: 90 1RF colestipol 5 gram packet 5 gram PO DAILY buspirone 15 mg tablet 15 mg PO TID Qty: 270 3RF losartan 25 mg tablet 25 mg PO DAILY clonazepam [Klonopin] 1 mg tablet 1 mg PO BID PRN (Reason: anxiety) Qty: 60 3RF Hold Instructions: change to #45 with next fill insulin aspart U-100 100 unit/mL solution 60 units Continuous Subcutaneous Infusion DAILY Patient Comments: USE 60 UNITS THROUGH PUMP QD [id number]-[id number] 24,000-76,000 -120,000 unit capsule,delayed release(DR/EC) 2 - 3 cap PO TIDWM MDD 9 Patient Comments: TK 2 TO 3 CS PO BEFORE MEALS UP TO 9 CS PER DAY Referrals: Yoshi Bates MD [Primary Care Provider] - Stand Alone Forms: Patient Portal/API
[2023-03-04] MEDS: MORPHINE 4 MG/ML INJ IV (08:56)
[2023-03-04] MEDS: diazePAM 2 MG TABLET PO (08:56)
[2023-03-04] MEDS: OXYCODONE IR 5 MG TABLET 10 MG PO (10:08)
[2023-03-04] MEDS: ONDANSETRON 4 MG ODT SL (10:08)
== END 2023-03-04 10:15 | disposition home or self-care (01) ==
PROVIDERS: Emergency Provider Emergency Medicine; Family Provider Student in an Organized Health Care Education/Training Program; PCP Pediatrics
DX: M54.41 Lumbago with sciatica, right side (principal); Z79.899 Other long term (current) drug therapy
CPT/HCPCS: 96374; 99284; J2270

== ENCOUNTER → 2023-03-27 11:45 | Outpatient (CLI) | payer MEDICARE, SELFPAY ==
--- NOTE | 2023-03-27 | DI.MRI.S_ITS ---
PROCEDURE: MR LUMBAR SPINE WO CON INDICATIONS: RADICULOPATHY, LUMBAR REGION TECHNIQUE: Noncontrast sagittal T1 spin echo and T2 fast echo, sagittal STIR, and T2 fast spin echo through the lumbar spine. In cases with scoliosis, additional coronal T2 fast spin echo may be performed. COMPARISON: None. FINDINGS: Image quality: Excellent. Alignment and Curvature: Grade 1 retrolisthesis of L2 on L3. Mild levocurvature of the lumbar spine. Bone Marrow: Marrow is of normal overall signal. No acute vertebral body compression fractures. Spinal Cord: Conus medullaris terminates at the L1-L2 level. Visualized cord demonstrates normal signal and size. Paraspinous Soft Tissues: No paravertebral masses. T12-L1: Disc desiccation and height loss. Facet arthropathy. No central canal or neural foraminal stenosis. L1-L2: Disc desiccation and a small posterior disc bulge. Facet arthropathy and thickening of ligamentum flavum. Epidural lipomatosis. No significant central canal stenosis. Moderate bilateral neural foraminal stenosis. L2-L3: Disc desiccation height loss with a diffuse posterior disc bulge. Right greater than left facet hypertrophy and thickening of ligamentum flavum. This results in mild central canal stenosis and severe narrowing of the right lateral recess with impingement of the descending right L3 nerve root. There is mild bilateral neural foraminal stenosis. L3-L4: Disc desiccation and small posterior disc bulge. Facet hypertrophy and thickening of ligamentum flavum. Mild epidural lipomatosis. Mild to moderate central canal stenosis. Severe narrowing of the lateral recesses with possible impingement of the descending L4 nerve roots bilaterally. Moderate to severe bilateral neural foraminal stenosis. L4-L5: Disc desiccation. Posterior disc bulge. Facet hypertrophy and thickening of ligamentum flavum. Mild central canal stenosis. Severe narrowing of the right lateral recess with possible impingement of the descending right L5 nerve root. Severe bilateral neural foraminal stenosis. L5-S1: Minimal posterior disc bulge. Facet hypertrophy and thickening of ligamentum flavum. Mild central canal stenosis. Moderate narrowing of the right lateral recess with abutment of the descending right S1 nerve root. Narrowing of the left lateral recess with possible impingement of the descending left S1 nerve root. Moderate to severe bilateral neural foraminal stenosis. IMPRESSION: 1. Multilevel degenerative changes of the lumbar spine with mild levocurvature. 2. Multilevel mild and [id number] central canal stenosis. Multilevel lateral recess stenosis with impingement of nerve roots as described above. 3. Multilevel neural foraminal stenosis, with bilateral moderate to severe stenosis at L3-L4, bilateral severe stenosis at L4-5 and bilateral moderate to severe stenosis at L5-S1. Dictated by: Peng Denton M.D. on 03/28/2023 at 12:29 Approved by: Peng Denton M.D. on 03/28/2023 at 12:36
== END ==
PROVIDERS: Family Provider Student in an Organized Health Care Education/Training Program; PCP Pediatrics; Referring Provider Chiropractor Independent Medical Examiner; Visit Provider Chiropractor Independent Medical Examiner
DX: M47.26 Other spondylosis with radiculopathy, lumbar region (principal); M47.27 Other spondylosis with radiculopathy, lumbosacral region; M48.061 Spinal stenosis, lumbar region without neurogenic claudication; M48.07 Spinal stenosis, lumbosacral region; M54.59 Other low back pain
CPT/HCPCS: 72148

== ENCOUNTER → 2023-04-20 07:23 | Outpatient (CLI) | payer MEDICARE, SELFPAY ==
[2023-04-20 09:09] LABS: Hemoglobin A1C% w Est Avg Glu 6.4 % (4.0-6.0)
[2023-04-20 09:25] LABS: Creatinine Urine Random 174.6 mg/dL
[2023-04-20 09:29] LABS: Microalbumin Urine Random 0.7 mg/dL (0-1.6)
[2023-04-20 09:33] LABS: Alanine Aminotransferase 74 IU/L (<50); Albumin 3.5 g/dL (3.5-5.0); Albumin Globulin Ratio 1.5 (1.0-2.8); Alkaline Phosphatase 160 U/L (38-126); Aspartate Aminotransferase 56 IU/L (17-59); BUN Creatinine Ratio 27.2 (6-22); Bilirubin Total 0.9 mg/dL (0.2-1.3); Blood Urea Nitrogen 22 mg/dL (9-20); Calcium 8.8 mg/dL (8.4-10.2); Carbon Dioxide 21 mmol/L (22-32); Chloride 111 mmol/L (98-107); Cholesterol 97 mg/dL (140-199); Estimated Glomerular Filt Rate > 60 mL/min (>60); Globulin 2.3 g/dL (1.7-4.1); Glucose 130 mg/dL (80-110); HDL Cholesterol 59 mg/dL (40-60); HEMOLYSIS < 15 (0-50); LDL Cholesterol Calculated 25 mg/dL (<100); Potassium 4.3 mmol/L (3.4-5.1); Sodium 139 mmol/L (137-145); Total Protein 5.8 g/dL (6.3-8.2); Triglycerides 65 mg/dL (35-150)
== END ==
PROVIDERS: Family Provider Student in an Organized Health Care Education/Training Program; PCP Pediatrics; Referring Provider Internal Medicine Endocrinology, Diabetes & Metabolism; Visit Provider Internal Medicine Endocrinology, Diabetes & Metabolism
DX: E10.65 Type 1 diabetes mellitus with hyperglycemia (principal); R79.89 Other specified abnormal findings of blood chemistry; E16.2 Hypoglycemia, unspecified
CPT/HCPCS: 36415; 80053; 80061; 82043; 82570; 83036

== ENCOUNTER → 2023-04-21 12:05 | Outpatient (CLI) | payer MEDICARE, SELFPAY ==
--- NOTE | 2023-04-21 12:07 | DI.RAD.S_ITS ---
PROCEDURE: XR LUMBAR SPINE MIN 4V INDICATIONS: low back pain TECHNIQUE: 5 views of the lumbar spine acquired, including flexion and extension views.>> COMPARISON: None. FINDINGS: Bones: 5 nonrib-bearing vertebrae are present. 3 mm retrolisthesis L2-L3 and L3-L4. Multilevel disc height loss with endplate sclerosis and spurring, most notably and [id number]-lruujbgw at the L2-L3 and L5-S1 level. Mild facet joint arthropathy L4-L5 and L5-S1. No vertebral body compression fractures. No suspicious bony lesions. Soft tissues: Overlying bowel gas pattern is normal. No suspicious soft tissue calcifications. Multiple herniorrhaphy clips projected over the right lower quadrant and hemipelvis. Right flank surgical clips. IMPRESSION: Multilevel lumbar spine spondylosis. Dictated by: Kevin Hinkle [facility] Interpreted: Melvi Bain MD on 04/21/2023 at 12:42 Transcribed by: KENDRA on 04/21/2023 at 12:44 Approved by: Melvi Bain M.D. on 04/22/2023 at 9:14
== END ==
PROVIDERS: Family Provider Student in an Organized Health Care Education/Training Program; PCP Pediatrics; Referring Provider Anesthesiology; Visit Provider Anesthesiology
DX: M47.26 Other spondylosis with radiculopathy, lumbar region (principal); M47.27 Other spondylosis with radiculopathy, lumbosacral region; M51.16 Intervertebral disc disorders with radiculopathy, lumbar region; M54.50 Low back pain, unspecified; M48.061 Spinal stenosis, lumbar region without neurogenic claudication; M54.9 Dorsalgia, unspecified
CPT/HCPCS: 72110; 99214

== ENCOUNTER 2023-08-31 14:45 | Emergency (ER) | payer MEDICARE, SELFPAY ==
[2023-08-31] VITALS (9 sets, daily range): BP systolic 161–189; BP diastolic 73–81; PULSE 40–46; RESP 14–30; TEMP 36.6; O2SAT 97–100; BMI 23.1
--- NOTE | 2023-08-31 15:06 | PC.NURSE ---
Blood sugar checked per pt monitor, 58. Juice and peanut butter given
--- NOTE | 2023-08-31 15:09 | DI.RAD.S_ITS ---
PROCEDURE: XR CHEST 1V INDICATIONS: chest pain TECHNIQUE: One view of the chest was acquired. COMPARISON: [facility], CR, XR CHEST 2V, 01/04/2023, 14:45. FINDINGS: Surgical changes and devices: None. Lungs and pleura: Lungs are clear. No pleural effusions or pneumothorax. Mediastinum: Mediastinal contours appear normal. Heart size is normal. Bones and chest wall: No suspicious bony lesions. Overlying soft tissues appear unremarkable. IMPRESSION: No acute cardiopulmonary abnormality is seen. Dictated by: Natalia Andrew M.D. on 08/31/2023 at 16:05 Approved by: Natalia Andrew M.D. on 08/31/2023 at 16:06
[2023-08-31 15:26] LABS: Add Manual Diff / Slide Review NO; Basophils Absolute Auto 100 /uL (0-100); Basophils Percent Auto 0.7 % (0-2); Eosinophils Absolute Auto 200 /uL (0-450); Eosinophils Percent Auto 3.5 % (2-4); Hematocrit 43.8 % (41-53); Hemoglobin 14.6 g/dL (13.5-17.5); Lymphocytes Absolute Auto 1800 /uL (1100-4500); Lymphocytes Percent Auto 26.4 % (25-40); Mean Corpuscular HGB Conc 33.4 % (30-36); Mean Corpuscular Volume 92.6 fL (80-100); Monocytes Absolute Auto 500 /uL (0-900); Monocytes Percent Auto 7.8 % (3-14); Neutrophils Absolute Auto 4300 /uL (1500-7000); Neutrophils Percent Auto 61.6 % (50-75); Platelet Count 141 X10^3/uL (150-400); Red Blood Cell Count 4.73 X10^6/uL (4.5-5.9); Red Cell Distribution Width 14.2 % (11.6-14.8)
[2023-08-31 15:33] LABS: INR 1.1 (0.9-1.3); Prothrombin Time 12.2 SECONDS (9.4-12.5)
[2023-08-31 15:35] LABS: PTT Partial Thromboplastin Tim 29 SECONDS (25.1-36.5)
[2023-08-31 16:02] LABS: Alanine Aminotransferase 71 IU/L (<50); Albumin 4.1 g/dL (3.5-5.0); Albumin Globulin Ratio 1.5 (1.0-2.8); Alkaline Phosphatase 131 U/L (38-126); Aspartate Aminotransferase 61 IU/L (17-59); BUN Creatinine Ratio 25.3 (6-22); Bilirubin Total 0.9 mg/dL (0.2-1.3); Blood Urea Nitrogen 21 mg/dL (9-20); Calcium 9.3 mg/dL (8.4-10.2); Carbon Dioxide 25 mmol/L (22-32); Chloride 109 mmol/L (98-107); Creatine Kinase 158 U/L (55-170); Estimated Glomerular Filt Rate > 60 mL/min (>60); Globulin 2.7 g/dL (1.7-4.1); Glucose 62 mg/dL (80-110); HEMOLYSIS 22 (0-50); Lipase 12 U/L (23-300); Magnesium 2.3 mg/dL (1.6-2.3); Potassium 4.7 mmol/L (3.4-5.1); Sodium 138 mmol/L (137-145); Total Protein 6.8 g/dL (6.3-8.2)
[2023-08-31 16:13] LABS: Troponin I < 0.012 ng/mL (0.01-0.034)
--- NOTE | 2023-08-31 17:23 | ED_ITS ---
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 Patient presents he went to establish with a primary care today he has had some episodes of chest pain on and off over the past several months on the left side seems to be worse when he is working, he denies diaphoresis no shortness of breath, he states it just feels tight no nausea no vomiting no other GI or urinary symptoms. They noted that his heart rate was quite slow in the 40s. Patient states he always runs flow and 45 is normal. He states his sugar was a little on the low end. He had some orange juice and peanut butter and felt much better. He states he is currently asymptomatic has not had any chest pain today. Patient states no new changes to medications. He does not use any tobacco, drinks 1 alcoholic drink daily, no recreational drugs. He follows regularly with Oncology in [place]. Primary care was Dr. Dang and he was establishing today with Dr. Washburn. Patient states that he was told they would reach out to him to set up a new follow up appointment. Related Data Home Medications Medication Instructions Recorded Confirmed Insulin pump See Rx Instructions .Route .COMPLEX 06/20/18 08/31/23 colestipol 5 gram oral packet 5 gram PO DAILY 10/25/19 08/31/23 losartan 25 mg tablet 25 mg PO DAILY 01/04/23 08/31/23 insulin lispro 100 unit/mL 1 - 60 unit continuous IV infusion 04/21/23 08/31/23 subcutaneous solution DAILY [id number] 3 cap PO BID 04/21/23 08/31/23 36,000-114,000-180,000 unit capsule,delay rel (Creon) cholecalciferol (vitamin D3) 10 10 mcg PO DAILY 08/31/23 08/31/23 mcg (400 unit) capsule Previous Rx's Medication Instructions Recorded loperamide 2 mg capsule (Imodium 2 mg PO Q2-4H PRN loose stool #240 12/10/19 A-D) caps clonazepam 1 mg tablet (Klonopin) 1 mg PO BID PRN anxiety #60 tabs 07/18/23 meloxicam 15 mg tablet 15 mg PO DAILY #90 tabs 08/16/23 buspirone 15 mg tablet 15 mg PO TID #270 tabs 08/31/23 Allergies Allergy/AdvReac Type Severity Reaction Status Date / Time No Known Drug Allergies Allergy Verified 08/31/23 13:29 Review of Systems Review of Systems ROS Unobtainable: All systems reviewed & are unremarkable except as noted in HPI and below Patient History Medical History Lumbar facet arthropathy Lumbar radiculopathy Dorsalgia Lumbar spondylosis Bulging of lumbar intervertebral disc Foraminal stenosis of lumbar region Thrombocytopenia Chronic diarrhea Dermatophytosis Depression (2013) Anxiety (2013) Shoulder pain (1999) Polio (~1948) Mumps (~1950) Primary cancer of ampulla of Vater (2011) History of malignant neoplasm of ampulla of Vater (2011) Surgical History History of surgery (2011) Status post right foot surgery (1964) History of tonsillectomy (~1950) Status post appendectomy (~1950) Family History Brother Age: 74 Diabetes mellitus Stroke Brother Age: 72 Osteoporosis Father Hyperlipidemia Heart disease MT (myocardial infarction) Mother Age: 101 Arthritis Diabetes mellitus Grandfather Diabetes mellitus Grandfather Dementia Grandmother Cancer Grandmother Alzheimer's disease Social History marital status: household members: spouse occupational status: previously employed Smoking Status: Former smoker Tobacco: How many years used: 20 alcohol intake: current (1 serving daily) substance use type: does not use Smoking Status: Former smoker alcohol intake frequency: 0-2 drinks per day Substance Use Type: does not use Exam Narrative Exam Narrative: GENERAL: Alert and oriented x three, male in mild distress HEENT: Head normocephalic, atraumatic, EOMI, pupils reactive, face symmetric, moist mucous membranes NECK: Supple, full range of motion CARDIOVASCULAR: Regular rate and rhythm without murmurs, rubs or gallops. No JVD. No swelling bilateral lower extremities. RESPIRATORY: Breath sounds equal bilaterally, no wheezes rales or rhonchi. ABDOMEN: Soft, nontender. Normoactive bowel sounds all 4 quadrants. No guarding or rebound, rigidity, no mass : No CVA tenderness EXTREMITIES: Normal range of motion, no clubbing or edema. Neurovascularly intact NEUROLOGICAL: Cranial nerves II through XII grossly intact. Moving all extremities SKIN: Warm, dry, no petechiae, no rashes or lesions. Initial Vital Signs Initial Vital Signs: Vital Signs Temperature 98 F 08/31/23 14:47 Pulse Rate 46 L 08/31/23 14:47 Respiratory Rate 18 08/31/23 14:47 Blood Pressure 189/79 H 08/31/23 14:47 Pulse Oximetry 99 08/31/23 14:47 Oxygen Delivery Method Room Air 08/31/23 14:47 Course Orders Ordered: ED Orders 08/31/23 15:03 Comprehensive Metabolic Panel Stat Lipase Stat Magnesium Stat PTT Partial Thromboplastin Madhav Stat Prothrombin Time INR Stat Troponin & CK Cardiac Panel Stat 08/31/23 15:09 XR chest 1V Stat Complete Blood Count AUTO DIFF Stat 08/31/23 15:14 EKG-12 Lead Stat Vital Signs Vital signs: Vital Signs - 8 hr 08/31/23 14:47 08/31/23 15:28 08/31/23 15:30 Temperature 98 F Pulse Rate 46 L 42 L 44 L Respiratory Rate 18 14 Blood Pressure 189/79 H Pulse Oximetry 99 100 100 Oxygen Delivery Method Room Air 08/31/23 15:32 08/31/23 15:32 08/31/23 16:00 Temperature Pulse Rate 40 L 41 L Respiratory Rate 21 24 Blood Pressure 165/81 H Pulse Oximetry 99 97 Oxygen Delivery Method 08/31/23 16:00 08/31/23 16:30 08/31/23 16:31 Temperature Pulse Rate 41 L 42 L Respiratory Rate 24 25 H Blood Pressure 165/74 H Pulse Oximetry 97 97 Oxygen Delivery Method 08/31/23 16:31 08/31/23 17:00 08/31/23 17:00 Temperature Pulse Rate 40 L Respiratory Rate 24 Blood Pressure 161/73 H 171/80 H Pulse Oximetry 97 Oxygen Delivery Method 08/31/23 17:30 Temperature Pulse Rate 45 L Respiratory Rate 30 H Blood Pressure Pulse Oximetry Oxygen Delivery Method MDM - Arrhythmia/Palpitations Lab Data 08/31/23 15:09 08/31/23 15:03 Labs: Lab Results 08/31/23 08/31/23 Range/Units 15:03 15:09 WBC 7.0 (4.5-11.0) X10^3/uL RBC 4.73 (4.5-5.9) X10^6/uL Hgb 14.6 (13.5-17.5) g/dL Hct 43.8 (41-53) % MCV 92.6 (80-100) fL MCH 31.0 (26-34) PG MCHC 33.4 (30-36) % RDW 14.2 (11.6-14.8) % Plt Count 141 L (150-400) X10^3/uL Neut % (Auto) 61.6 (50-75) % Lymph % (Auto) 26.4 (25-40) % [place] % (Auto) 7.8 (3-14) % Eos % (Auto) 3.5 (2-4) % Baso % (Auto) 0.7 (0-2) % Neut # (Auto) 4300 (5642-8960) /uL Lymph # (Auto) 1800 (6439-0585) /uL [place] # (Auto) 500 (0-900) /uL Eos # (Auto) 200 (0-450) /uL Baso # (Auto) 100 (0-100) /uL PT 12.2 (9.4-12.5) SECONDS INR 1.1 (0.9-1.3) APTT 29 (25.1-36.5) SECONDS Sodium 138 (137-145) mmol/L Potassium 4.7 (3.4-5.1) mmol/L Chloride 109 H (98-107) mmol/L Carbon Dioxide 25 (22-32) mmol/L BUN 21 H (9-20) mg/dL Creatinine 0.83 (0.66-1.25) mg/dL Estimated GFR > 60 (>60) mL/min BUN/Creatinine Ratio 25.3 H (6-22) Glucose 62 L (80-110) mg/dL Calcium 9.3 (8.4-10.2) mg/dL Magnesium 2.3 (1.6-2.3) mg/dL Total Bilirubin 0.9 (0.2-1.3) mg/dL AST 61 H (17-59) IU/L ALT 71 H (<50) IU/L Alkaline Phosphatase 131 H (38-126) U/L Total Creatine Kinase 158 (55-170) U/L Troponin I < 0.012 (0.01-0.034) ng/mL Total Protein 6.8 (6.3-8.2) g/dL Albumin 4.1 (3.5-5.0) g/dL Globulin 2.7 (1.7-4.1) g/dL Albumin/Globulin Ratio 1.5 (1.0-2.8) Lipase 12 L (23-300) U/L Point of Care Testing Glucose POC 114 Imaging Data Chest x-ray: Radiologist's Impresson: Tyree Monroy?(Sg)??78??M??1945 ? Allergy/Adv: No Known Drug Allergies (More??) Close Chest X-Ray (Signed) Natalia Andrew - 08/31/23 Lumbar Spine X-Ray (Signed) Tucker Bainregina - 04/21/23 Lumbar Spine MRI (Signed) Peng Denton - 03/27/23 Chest X-Ray (Signed) Jaquelin Lauren - 01/04/23 Abdomen Ultrasound (Signed) Julio Ospina - 10/29/19 Chest/Abdomen/Pelvis CT (Signed) Ivan Grace - 03/06/19 Forearm X-Ray (Signed) Jason Hall - 10/03/18 Launch?Image [address] [address] XRay Report Signed Patient: Tyree Monroy MR#: [id number] : 1945 Acct:[id number] Age/Sex: 78 / M Date of Service: 08/31/23 Loc: ED Accession Number: [id number] Procedure: XR chest 1V Ordering Provider: Balbina Klein D.O. PROCEDURE: XR CHEST 1V INDICATIONS: chest pain TECHNIQUE: One view of the chest was acquired. COMPARISON: [facility], CR, XR CHEST 2V, 01/04/2023, 14:45. FINDINGS: Surgical changes and devices: None. Lungs and pleura: Lungs are clear. No pleural effusions or pneumothorax. Mediastinum: Mediastinal contours appear normal. Heart size is normal. Bones and chest wall: No suspicious bony lesions. Overlying soft tissues appear unremarkable. IMPRESSION: No acute cardiopulmonary abnormality is seen. Dictated by: Natalia Andrew M.D. on 08/31/2023 at 16:05 Approved by: Natalia Andrew M.D. on 08/31/2023 at 16:06 ECG Data Attestation: I personally reviewed and interpreted this ECG as follows: Prior ECG tracings: available for review Interpretation: Marked sinus bradycardia with first-degree AV block rate of 43, CA 222, QRS of 104 QTC of 405. Right axis deviation, nonspecific ST change. Patient does not appear to have a third-degree block does appear to have P waves with all of his QRS. 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 Patient has similar appearing ST segments accept for AVR is upright lead 1 and aVL are down. MDM Narrative Medical decision making narrative: 78-year-old male who has had some chest pain on and off none today who presents with complaint of bradycardia which he states has been present for some time. Patient was establishing with primary care. Was noted glucose was 62 on serum glucose here was in the 70s with point of care had juice and peanut butter and improved to the 120s patient felt better after this. Patient has not had any for chest pain today. CBC is appropriate accept for platelets slightly low at 141 appears to be consistent with priors. Negative coags, CMP shows a glucose of 62 chloride of 109 normal sodium and potassium renal function creatinine 0.83. LFTs slightly elevated at 61, 71 with a alk-phos of 131 which are fairly consistent with priors. Bilirubin is -0.9 and lipase is 12. Patient has a negative troponin and CK. CXR shows no acute change. EKG appears similar in majority but does have change. Discussed observation for chest pain. Patient prefers to return home. Dr. Washburn told him they will reach out to set up an appointment for follow up as he did not get to complete his appointment today. Reviewed all of patients findings. Discharge Plan Departure Patient Disposition: Home Clinical Impression: Bradycardia Activity Restrictions/Additional Instructions: Please follow up with your physician for recheck. Your workup today did show your glucose is a little on low side but has not been persistent. Do have prior EKGs which show bradycardia in the 40s from 2019 there are some mild changes on her EKG but your heart enzyme is negative. Talk with your physician about stress testing. Please return for new or worsening symptoms, recurrent or worsening chest pain, shortness of breath, lightheadedness or passing out, new swelling in your extremities or other new or concerning changes. 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 loperamide [Imodium A-D] 2 mg capsule 2 mg PO Q2-4H PRN (Reason: loose stool) Qty: 240 5RF Rx Instructions: With each loose stool clonazepam [Klonopin] 1 mg tablet 1 mg PO BID PRN (Reason: anxiety) Qty: 60 0RF Hold Instructions: change to #45 with next fill meloxicam 15 mg tablet 15 mg PO DAILY Qty: 90 0RF colestipol 5 gram packet 5 gram PO DAILY losartan 25 mg tablet 25 mg PO DAILY insulin lispro 100 unit/mL solution 1 - 60 unit continuous IV infusion DAILY Creon 36,000-114,000- 180,000 unit capsule,delayed release(DR/EC) 3 cap PO BID Referrals: Marques Washburn MD [Primary Care Provider] - Stand Alone Forms: Patient Portal/API
== END 2023-08-31 17:54 | disposition home or self-care (01) ==
PROVIDERS: Emergency Provider Emergency Medicine; Family Provider Student in an Organized Health Care Education/Training Program; PCP Family Medicine
DX: R00.1 Bradycardia, unspecified (principal); R07.9 Chest pain, unspecified; Z79.899 Other long term (current) drug therapy
CPT/HCPCS: 36415; 71045; 80053; 82550; 82962; 83690; 83735; 84484; 85025; 85610; 85730; 93005; 93010; 99283; 99284

== ENCOUNTER → 2023-09-16 08:46 | Outpatient (CLI) | payer MEDICARE, SELFPAY ==
[2023-09-16 10:07] LABS: Add Manual Diff / Slide Review NO; Basophils Absolute Auto 0 /uL (0-100); Basophils Percent Auto 0.7 % (0-2); Eosinophils Absolute Auto 300 /uL (0-450); Eosinophils Percent Auto 6.2 % (2-4); Hematocrit 43.3 % (41-53); Hemoglobin 14.5 g/dL (13.5-17.5); Lymphocytes Absolute Auto 1400 /uL (1100-4500); Lymphocytes Percent Auto 29.5 % (25-40); Mean Corpuscular HGB Conc 33.4 % (30-36); Mean Corpuscular Hemoglobin 31.3 PG (26-34); Mean Corpuscular Volume 93.6 fL (80-100); Monocytes Absolute Auto 400 /uL (0-900); Monocytes Percent Auto 7.6 % (3-14); Neutrophils Absolute Auto 2700 /uL (1500-7000); Platelet Count 135 X10^3/uL (150-400); Red Blood Cell Count 4.63 X10^6/uL (4.5-5.9); Red Cell Distribution Width 14.6 % (11.6-14.8); White Blood Cell Count 4.8 X10^3/uL (4.5-11.0)
[2023-09-16 10:24] LABS: Alanine Aminotransferase 48 IU/L (<50); Albumin 3.9 g/dL (3.5-5.0); Albumin Globulin Ratio 1.5 (1.0-2.8); Alkaline Phosphatase 122 U/L (38-126); Aspartate Aminotransferase 45 IU/L (17-59); BUN Creatinine Ratio 17.9 (6-22); Bilirubin Total 1.2 mg/dL (0.2-1.3); Blood Urea Nitrogen 17 mg/dL (9-20); Calcium 9.3 mg/dL (8.4-10.2); Carbon Dioxide 26 mmol/L (22-32); Chloride 107 mmol/L (98-107); Cholesterol 106 mg/dL (140-199); Estimated Glomerular Filt Rate > 60 mL/min (>60); Globulin 2.6 g/dL (1.7-4.1); Glucose 117 mg/dL (80-110); HDL Cholesterol 66 mg/dL (40-60); HEMOLYSIS 15 (0-50); LDL Cholesterol Calculated 31 mg/dL (<100); Potassium 4.8 mmol/L (3.4-5.1); Sodium 138 mmol/L (137-145); Total Protein 6.5 g/dL (6.3-8.2); Triglycerides 45 mg/dL (35-150)
[2023-09-16 10:35] LABS: Hemoglobin A1C% w Est Avg Glu 6.4 % (4.0-6.0)
== END ==
PROVIDERS: PCP Family Medicine; Referring Provider Family Medicine; Visit Provider Family Medicine
DX: Z13.220 Encounter for screening for lipoid disorders (principal); E08.9 Diabetes mellitus due to underlying condition without complications; K86.89 Other specified diseases of pancreas
CPT/HCPCS: 36415; 80053; 80061; 83036; 85025

== ENCOUNTER → 2023-09-26 08:37 | Outpatient (CLI) | payer MEDICARE, SELFPAY ==
--- NOTE | 2023-09-26 08:38 | DI.US.S_ITS ---
PROCEDURE: US ABD AORTA ANEURYSM SCREEN INDICATIONS: Family Hx of AAA,h/o Tobacco use TECHNIQUE: Real time scanning was performed of the aorta and iliac arteries, with image documentation. COMPARISON: None. FINDINGS: Aorta: Proximal aortic is not seen secondary to overlying bowel gas. Mid-aorta measures 1.9 cm. Distal aortic diameter is 2.0 cm. Iliac arteries: Right common iliac artery measures 0.9 cm. Left common iliac artery measures 1.3 cm. IMPRESSION: Proximal aorta is not visualized secondary to overlying bowel gas. The visualized aorta and iliac vessels are normal in caliber. Dictated by: Peng Denton M.D. on 09/26/2023 at 10:57 Approved by: Peng Denton M.D. on 09/26/2023 at 10:58
== END ==
LOC: US 08:37
PROVIDERS: Family Provider Family Medicine; PCP Family Medicine; Referring Provider Family Medicine; Visit Provider Family Medicine
DX: Z87.891 Personal history of nicotine dependence (principal); Z82.49 Family history of ischemic heart disease and other diseases of the circulatory system; Z13.6 Encounter for screening for cardiovascular disorders
CPT/HCPCS: 76706

== ENCOUNTER 2023-10-26 11:15 | Outpatient (RCR) | payer MEDICARE, SELFPAY ==
--- NOTE | 2023-10-13 17:11 | PT.OIE ---
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) Lumbar facet arthropathy Lumbar radiculopathy Lumbar spondylosis Mumps (~1950) Polio (~1948) Primary cancer of ampulla of Vater (2011) Shoulder pain (1999) Thrombocytopenia Past Surgical History (Last Reviewed 08/31/23 @ 17:38 by Balbina Klein DO) History of surgery (2011) History of tonsillectomy (~1950) Status post appendectomy (~1950) Status post right foot surgery (1964) Visit Care Team Role Provider Type Marques Washburn MD Attending Provider Physician Family Provider Primary Care Provider Referring Provider Specialty: Family Practice Obstetrics Address: [address] [place] [address] Email: [email or web address] Physical Therapy Initial Evaluation PT-OP-A Visit Information Start: 10/13/23 13:47 Freq: Status: Active Protocol: Document 10/13/23 13:48 NM (Rec: 10/13/23 15:44 NM [id number]) Out-Patient Physical Therapy Visit Information Visit Information Visit Type Initial Evaluation Visit Start Time 13:45 Visit Stop Time 14:30 Visit Number 1 Evaluation Information Evaluation Date 10/13/23 Precautions Precautions retrolisthesis, neuropathy, polio scoliosis PT-OP-B Current Condition Start: 10/13/23 13:47 Freq: Status: Active Protocol: Document 10/13/23 13:48 NM (Rec: 10/13/23 15:44 NM [id number]) Current Condition History of Current Condition Onset Date March 2023 Current Complaints pain, numbness in ant thigh History of Current Condition Pt presents with R sided low back pain and numbness of R anterior thigh. Reports that his back wakes him up at night , but is improving compared to several months ago. Pt reports low back pain with activity, worse with standing or walking for extended periods of time. He reports that he twisted wrong while standing and holding a crab pot, felt a pinch that worsened over the day and night. Had to lay down on the floor due to pain, unable to stand/walk. Went to ED due to pain, where they performed imaging. Has a hx of similar episode from picking up gum, about 18 years ago, but no other injuries. Reports Knees to chest, rolling makes it worse. Went to mobile security specialist recently and decided to try conservative care. 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 Prior Treatments and Tests 03/2023 Radiographs: multilevel spondylosis, retrolisthesis L2-L3 and L3-L4; MRI: levoscoliosis, central canal stenosis, neural foraminal stenosis L3-4 and bilateral foraminal stenosis L4-L5-S1 Prior Functional Status Baseline Function- ADL's Independent Baseline Function- Mobility Independent Baseline Function- Gait no limit Baseline Function- Work/School retired; wood working, crab trapping Current Functional Impairments (Reported) Functional Limitations- ADL's reports no limits with ADLs, difficulty with sleeping ( sleeps L side down) Functional Limitations- Mobility/Gait standing 3-4 hours, walking for extended periods PT-OP-C Subjective Start: 10/13/23 13:47 Freq: Status: Active Protocol: Document 10/13/23 13:48 NM (Rec: 10/13/23 15:44 NM [id number]) OP-PT Subjective Patient Comments Patient Comments see hx above for pt report Patient Questionnaires Oswestry Low Back Index Oswestry Score 16/100 OP-PT Pain Assessment Location R leg Pain Location Details anterior thigh L2-L3 dermatomes to knee (incl medial/lateral thigh) Intensity 2 Scale Used Numeric (0 - 10) Description- Other numbness, worst 5 Frequency Constant Pain Duration numbness constant, no longer pain like acute injury Radiating Location none, no radiation to posterior thigh Pain Aggravating Factors Standing Other Pain Aggravating Factors 3-4 hrs Pain Alleviating Factors Cold Other Pain Alleviating Factors sitting with legs out lumbar spine Pain Location Details R>L Intensity 3 Scale Used Numeric (0 - 10) Description Cramping Description- Other worst- 6 Frequency Intermittent Pain Duration seconds Radiating Location to R anterior thigh Pain Aggravating Factors Position,Changing Position, Standing Other Pain Aggravating Factors supine, laying on L, stand too long (3-4 hrs) Pain Alleviating Factors Position,Sitting Home Pain Medication Use Pain Medications Used No PT-OP-D Balance Start: 10/13/23 13:47 Freq: Status: Active Protocol: Document 10/13/23 13:48 NM (Rec: 10/13/23 15:44 NM [id number]) Balance Tests Single Limb Standing Single Limb- Right 5 sec, increased sway, decreased stability Single Limb- Left 10 sec before LOB Tandem Tandem Standing 5 sec ea side, difficulty with achieving position PT-OP-E Functional Tests Start: 10/13/23 13:47 Freq: Status: Active Protocol: Document 10/13/23 13:48 NM (Rec: 10/13/23 15:44 NM [id number]) Functional Tests Other Forward Trunk Flexion Test Name of Test measured from finger to ground , legs straight Score 3 from floor Comment reports concordant pain with trunk flexion PT-OP-F Manual Assessment Start: 10/13/23 13:47 Freq: Status: Active Protocol: Document 10/13/23 13:48 NM (Rec: 10/13/23 15:44 NM [id number]) Manual Assessments Soft Tissue Assessment Soft Tissue Mobility Assessment Increased tightness B hip flexors, increased tone R lumbar paraspinals Joint Mobility Assessment Joint Mobility Assessment Decreased hip mobility AROM and PROM. Limited hamstring length (R 150 deg, L 135 deg) PT-OP-G Mobility & Gait Start: 10/13/23 13:47 Freq: Status: Active Protocol: Document 10/13/23 13:48 NM (Rec: 10/13/23 15:44 NM [id number]) OP Gait Assessment Gait Gait Assistance Required: Independent Distance (Feet) 150 Assistive Devices Assistive Device None Gait Deviations General Gait Pattern Antalgic,Flexed Trunk,Wide Based Gait Factors Limiting Gait Function Factors Limiting Gait Function Decreased Sensation,Decreased Strength,Poor Balance Comments Gait Comments Antalgic gait, quicker stance RLE PT-OP-H Neuro Start: 10/13/23 13:47 Freq: Status: Active Protocol: Document 10/13/23 13:48 NM (Rec: 10/13/23 15:44 NM [id number]) Sensation Evaluation Gross Sensation Gross Sensation Right LE Impaired Sensation Description Numbness Dermatome Impairments L2,L3 Comments Summary Comments R anterior thigh in L2-L3 dermatomes decreased to light touch sensation compared to LLE. Pt able to feel light touch but reports significantly less than LLE. B trunk and lower BLE equally intact to light touch sensation PT-OP-J Posture/Palpation/Skin Start: 10/13/23 13:47 Freq: Status: Active Protocol: Document 10/13/23 13:48 NM (Rec: 10/13/23 15:44 NM [id number]) Posture Evaluation Position Standing Head/C-Spine Posture Forward Head T-Spine Posture Increased Kyphosis L-Spine Posture Decreased Lordosis,Fixed Scoliosis on (L) Shoulder Posture (L) Rounded,(R) Rounded,(L) Forward,(R) Forward,(R) Elevated Scapula Posture (L) Protracted,(R) Protracted Arm Posture (L) Internally Rotated,(R) Internally Rotated Pelvis Posture Posterior Tilted Weight Distribution Weight Shifted Left Hip Posture (L) Externally Rotated,(R) Externally Rotated Knee Posture (L) Genu Valgus,(R) Genu Valgus Patellar Posture (L) Superior,(R) Superior Ankle/Foot Posture (L) Pronated,(R) Pronated Toe Posture (R) Clawed Toes Palpation Assessment Location lumbar spine Palpation Location paraspinals, spinous and transverse processes of L spine Palpation Findings Soft Tissue Tightness, Tenderness Palpation Details Step off sign upper lumbar spine L2-L4. L scoliosis. Tender to palpation R lower lumbar vertebrae, R PSIS, QL, paraspinals. Slight increase in R paraspinal tone compared to L lumbar paraspinals. PT-OP-K Range of Motion Start: 10/13/23 13:47 Freq: Status: Active Protocol: Document 10/13/23 13:48 NM (Rec: 10/13/23 15:44 NM [id number]) Lumbar Spine Range of Motion Lumbar Spine Active Percentage Testing Position Standing Flexion 75 Extension 50 Rotation Left 100 Rotation Right 50 Lateral Flexion Left 100 Lateral Flexion Right 100 ROM Limitations Soft Tissue Tightness,Muscle Weakness,Pain Comments Lateral flexion to knee joint line. Pain reported with R lateral flexion, lumbar flexion (3 from ground) Hip Goniometric Range of Motion Hip Right Flexion w/Knee Flexed 90 Extension 5 Internal Rotation 15 External Rotation 10 Comments Lumbar spine pain reproduced with seated hip IR Left Flexion w/Knee Flexed 90 Extension 10 Internal Rotation 40 External Rotation 20 PT-OP-L Special Tests Start: 10/13/23 13:47 Freq: Status: Active Protocol: Document 10/13/23 13:48 NM (Rec: 10/13/23 15:44 NM [id number]) Special Tests Lumbar Spine Special Tests Straight Leg Raise Test Results + Comments bilateral Distraction Test Results - Comments reports no change in symptoms Winkler/Quadrant Test Results - Hip Special Tests [place] Test Results - FADIR Test Results - Neural Special Tests- Lower Body Femoral Nerve Tension Test Results + PT-OP-M Strength Start: 10/13/23 13:47 Freq: Status: Active Protocol: Document 10/13/23 13:48 NM (Rec: 10/13/23 15:44 NM [id number]) Trunk Strength Trunk Manual Muscle Testing Flexion 4 Good Extension 4 Good Rotation Left 4 Good Rotation Right 4 Good Lateral Flexion Left 4- Good- Lateral Flexion Right 4- Good- Core Stabilization difficulty stabilizing against resistance Comments no pain with active flexion Hip Strength Hip Manual Muscle Testing Right Flexion (L2) 4 Good Extension (S1) 4 Good Abduction 4- Good- Adduction 4 Good External Rotation 4 Good Internal Rotation 4 Good Comments Pain with resisted abduction. Pt also reports pain with PT hand placement due to sensation changes Left Flexion (L2) 4 Good Extension (S1) 4 Good Abduction 4 Good Adduction 4 Good External Rotation 4 Good Internal Rotation 4 Good Knee Strength Knee Manual Muscle Testing Right Flexion (S2) 4+ Good+ Extension (L3) 4+ Good+ Left Flexion (S2) 4+ Good+ Extension (L3) 4+ Good+ Ankle/Foot Strength Ankle and Foot Manual Muscle Testing Right Dorsiflexion (L4) 4+ Good+ Plantarflexion (S1) 4+ Good+ Left Dorsiflexion (L4) 4+ Good+ Plantarflexion (S1) 4+ Good+ PT-OP-T Assessment and Plan Start: 10/13/23 13:47 Freq: Status: Active Protocol: Document 10/13/23 13:48 NM (Rec: 10/13/23 15:44 NM [id number]) Physical Therapy Assessment Impairments Impairments Activity Tolerance,Balance, Coordination,Functional Activities,Functional Mobility ,Gait,Integument,Pain,Posture, ROM,Sensation,Soft Tissue Mobility,Strength Goals Five Impairment strength Impairment gross trunk MMT 4/5 Short Term Goal (STG) Pt will improve gross trunk MMT to >4/5 in order to demonstrate improved spine stability for ADLs and activity STG Duration 4 weeks Certified Nursing Assistant Instructor Goal (LTG) Pt will demonstrate functional ability to stabilize trunk during at least 8/10 reps of squats and/or deadlift using proper body mechanics without pain for improved spine stability to perform ADLs and activity LTG Duration 8 weeks Four Impairment AROM Impairment R hip ER 10 deg, IR 15 deg Short Term Goal (STG) Pt will improve R hip ER and IR AROM to at least 20 deg in order to demonstrate improved hip mobility for ADLs STG Duration 4 weeks Longterm Goal (LTG) Pt will increase R hip ER to within 5 deg of L hip ER AROM and R hip IR AROM to at least 30 deg in order to demonstrate improved hip mobility for ADLs. LTG Duration 8 weeks Three Impairment AROM Impairment trunk flexion 75%, painful Certified Nursing Assistant Instructor Goal (LTG) Pt will be able to flex trunk >75% with pain <3/10 in order to pick an object up from the floor for improved ability to perform ADLs LTG Duration 8 weeks Two Impairment activity tolerance, function Impairment currently limited to standing <3-4 hr due to pain Short Term Goal (STG) Pt will report able to stand > 3 hours with pain <3/10 while performing wood working in order to demonstrate improved tolerance for activity and ability to participate in recreational activities STG Duration 4 weeks Certified Nursing Assistant Instructor Goal (LTG) Pt will report no limitation in ability to stand or walk with <3/10 pain while performing wood working or other activities in order to demonstrate improved pain management, activity tolerance , and return to PLOF LTG Duration 8 weeks One Impairment activity Impairment Oswestry 16/100 Certified Nursing Assistant Instructor Goal (LTG) Pt will decrease Oswestry score to <16/100 in order to demonstrate improved activity tolerance and pain management. LTG Duration 8 weeks Assessment Summary Assessment Pt is a 78 y.o. male presenting with R sided lumbar spine pain and R anterior thigh numbness beginning in March 2023. Pt reports injury occured when twisting his lumbar spine while picking up a crab trap. Since March, pt reports improvement in symptoms and overall pain levels; however, continues to be most limited by numbness along anterior thigh. Numbness in is L2-3 dermatomal distribution, which is consistent with imaging. Pt demonstrates trunk weakness, decreased ability to stabilize against resistance but without pain. Pt has decreased lumbar spine AROM in flexion, extension, and right rotation ; however, pain only reproduced with flexion. He has limitations in bilateral hip flexion AROM and R hip ER/ IR is significantly more limited that L hip ER/IR. Hip strength grossly 4- to 4/5 MMT . Right hip IR reproduces lumbar spine pain. Pt has step off sign near upper lumbar spine. Symptoms worsen in prone and do not change with repeated flexion. Winkler/ quadrant, distraction tests are negative; straight leg raise is positive bilaterally. 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 PT educated pt on signs/ symptoms of cauda equina syndrome, instructed pt that it is medical emergency and he should go to ED if symptoms should occur. Recommend referral to pelvic floor PT. PT further educated pt on exam findings, POC, attendance policy; pt and PT in agreement . Pt is wanting to try conservative care first. Pt would benefit from skilled PT for improved pain management, body mechanics training, and trunk stabilization in order to decrease pain symptoms and improve activity tolerance. Physical Therapy Plan Frequency and Duration Frequency of Treatment 2x/Week Duration of treatment (weeks) 8 Plan of Care Start Date 10/13/23 Plan of Care End Date 12/09/23 Therapeutic Interventions Therapeutic Interventions Aquatic Therapy,Balance Training,Coordination Training ,Gait Training,Home Exercise Program,Joint Mobilizations, Manual Therapy,Neuromuscular Re-education,Patient/Caregiver Education,Self-Care/Home Management,Sensory Integration ,Soft Tissue Mobilization, Taping,Therapeutic Activities, Therapeutic Exercises Modalities Cold Pack/Ice Massage,Electric Stimulation,Hot Packs, Ultrasound,Vasopneumatic Devices Other Therapeutic Interventions Manual traction Other Referrals/Consults Referrals/Consults Recommended Referral to pelvic floor PT for bladder Next Visit Focus/Plan Next Note Type Treatment Note Next Visit Plan Initiate hip hinge, gentle core and trunk stabilization. Manual treatment: sidelying facet opening L2-L4 R No end range extension, no grade IV mobilizations or manipulations. Careful grade III mobilizations due to retrolisthesis
--- NOTE | 2023-10-13 17:14 | PT.OPPOC ---
Physical, Occupational & Speech Therapy At [facility] Current Diagnoses Other intervertebral disc degeneration, lumbar region (10/13/23) Lumbago with sciatica, right side (10/13/23) Visit Care Team Role Provider Type Marques Washburn MD Attending Provider Physician Family Provider Primary Care Provider Referring Provider Specialty: Family Practice Obstetrics Address: [address] [place] [address], [facility] Email: [email or web address] Plan Of Care PT-OP-T Assessment and Plan Start: 10/13/23 13:47 Freq: Status: Active Protocol: Document 10/13/23 13:48 NM (Rec: 10/13/23 15:44 NM [id number]) Physical Therapy Assessment Impairments Impairments Activity Tolerance,Balance, Coordination,Functional Activities,Functional Mobility ,Gait,Integument,Pain,Posture, ROM,Sensation,Soft Tissue Mobility,Strength Goals Five Impairment strength Impairment gross trunk MMT 4/5 Short Term Goal (STG) Pt will improve gross trunk MMT to >4/5 in order to demonstrate improved spine stability for ADLs and activity STG Duration 4 weeks Rn Mental Health Goal (LTG) Pt will demonstrate functional ability to stabilize trunk during at least 8/10 reps of squats and/or deadlift using proper body mechanics without pain for improved spine stability to perform ADLs and activity LTG Duration 8 weeks Four Impairment AROM Impairment R hip ER 10 deg, IR 15 deg Short Term Goal (STG) Pt will improve R hip ER and IR AROM to at least 20 deg in order to demonstrate improved hip mobility for ADLs STG Duration 4 weeks Fpc Goal (LTG) Pt will increase R hip ER to within 5 deg of L hip ER AROM and R hip IR AROM to at least 30 deg in order to demonstrate improved hip mobility for ADLs. LTG Duration 8 weeks Three Impairment AROM Impairment trunk flexion 75%, painful Rn Mental Health Goal (LTG) Pt will be able to flex trunk >75% with pain <3/10 in order to pick an object up from the floor for improved ability to perform ADLs LTG Duration 8 weeks Two Impairment activity tolerance, function Impairment currently limited to standing <3-4 hr due to pain Short Term Goal (STG) Pt will report able to stand > 3 hours with pain <3/10 while performing wood working in order to demonstrate improved tolerance for activity and ability to participate in recreational activities STG Duration 4 weeks Rn Mental Health Goal (LTG) Pt will report no limitation in ability to stand or walk with <3/10 pain while performing wood working or other activities in order to demonstrate improved pain management, activity tolerance , and return to PLOF LTG Duration 8 weeks One Impairment activity Impairment Oswestry 16/100 Rn Mental Health Goal (LTG) Pt will decrease Oswestry score to <16/100 in order to demonstrate improved activity tolerance and pain management. LTG Duration 8 weeks Assessment Summary Assessment Pt is a 78 y.o. male presenting with R sided lumbar spine pain and R anterior thigh numbness beginning in March 2023. Pt reports injury occured when twisting his lumbar spine while picking up a crab trap. Since March, pt reports improvement in symptoms and overall pain levels; however, continues to be most limited by numbness along anterior thigh. Numbness in is L2-3 dermatomal distribution, which is consistent with imaging. Pt demonstrates trunk weakness, decreased ability to stabilize against resistance but without pain. Pt has decreased lumbar spine AROM in flexion, extension, and right rotation ; however, pain only reproduced with flexion. He has limitations in bilateral hip flexion AROM and R hip ER/ IR is significantly more limited that L hip ER/IR. Hip strength grossly 4- to 4/5 MMT . Right hip IR reproduces lumbar spine pain. Pt has step off sign near upper lumbar spine. Symptoms worsen in prone and do not change with repeated flexion. Winkler/ quadrant, distraction tests are negative; straight leg raise is positive bilaterally. 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 PT educated pt on signs/ symptoms of cauda equina syndrome, instructed pt that it is medical emergency and he should go to ED if symptoms should occur. Recommend referral to pelvic floor PT. PT further educated pt on exam findings, POC, attendance policy; pt and PT in agreement . Pt is wanting to try conservative care first. Pt would benefit from skilled PT for improved pain management, body mechanics training, and trunk stabilization in order to decrease pain symptoms and improve activity tolerance. Physical Therapy Plan Frequency and Duration Frequency of Treatment 2x/Week Duration of treatment (weeks) 8 Plan of Care Start Date 10/13/23 Plan of Care End Date 12/09/23 Therapeutic Interventions Therapeutic Interventions Aquatic Therapy,Balance Training,Coordination Training ,Gait Training,Home Exercise Program,Joint Mobilizations, Manual Therapy,Neuromuscular Re-education,Patient/Caregiver Education,Self-Care/Home Management,Sensory Integration ,Soft Tissue Mobilization, Taping,Therapeutic Activities, Therapeutic Exercises Modalities Cold Pack/Ice Massage,Electric Stimulation,Hot Packs, Ultrasound,Vasopneumatic Devices Other Therapeutic Interventions Manual traction Other Referrals/Consults Referrals/Consults Recommended Referral to pelvic floor PT for bladder Next Visit Focus/Plan Next Note Type Treatment Note Next Visit Plan Initiate hip hinge, gentle core and trunk stabilization. Manual treatment: sidelying facet opening L2-L4 R No end range extension, no grade IV mobilizations or manipulations. Careful grade III mobilizations due to retrolisthesis Plan of Care Dates Plan of Care Start Date 10/13/23 Plan of Care End Date 12/09/23 Electronically Signed by: Sandrine Gunderson, PT 10/14/23 1813 If you are in agreement with this Plan of Care, please return a signed and dated copy. I have reviewed this Plan of Care and certify that the skilled therapy services above are required to meet the patient?s needs. Physician Signature Date Printed Name and Credentials Clinical Instructor Signature Printed Name and Credentials
--- NOTE | 2023-10-17 16:06 | PT.OTN ---
Current Diagnoses Other intervertebral disc degeneration, lumbar region (10/17/23) Lumbago with sciatica, right side (10/17/23) Physical Therapy Treatment Note PT-OP-A Visit Information Start: 10/13/23 13:47 Freq: Status: Active Protocol: Document 10/17/23 12:14 NM (Rec: 10/17/23 13:03 NM [id number]) Out-Patient Physical Therapy Visit Information Visit Information Visit Type Treatment Note Visit Start Time 12:15 Visit Stop Time 13:00 Visit Number 2 Evaluation Information Evaluation Date 10/13/23 PT-OP-B Current Condition Start: 10/13/23 13:47 Freq: Status: Active Protocol: Document 10/13/23 13:48 NM (Rec: 10/13/23 15:44 NM [id number]) Current Condition History of Current Condition Onset Date March 2023 Current Complaints pain, numbness in ant thigh History of Current Condition Pt presents with R sided low back pain and numbness of R anterior thigh. Reports that his back wakes him up at night , but is improving compared to several months ago. Pt reports low back pain with activity, worse with standing or walking for extended periods of time. He reports that he twisted wrong while standing and holding a crab pot, felt a pinch that worsened over the day and night. Had to lay down on the floor due to pain, unable to stand/walk. Went to ED due to pain, where they performed imaging. Has a hx of similar episode from picking up gum, about 18 years ago, but no other injuries. Reports Knees to chest, rolling makes it worse. Went to ecommerce marketing specialist recently and decided to try conservative care. 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 Prior Treatments and Tests 03/2023 Radiographs: multilevel spondylosis, retrolisthesis L2-L3 and L3-L4; MRI: levoscoliosis, central canal stenosis, neural foraminal stenosis L3-4 and bilateral foraminal stenosis L4-L5-S1 Prior Functional Status Baseline Function- ADL's Independent Baseline Function- Mobility Independent Baseline Function- Gait no limit Baseline Function- Work/School retired; wood working, crab trapping Current Functional Impairments (Reported) Functional Limitations- ADL's reports no limits with ADLs, difficulty with sleeping ( sleeps L side down) Functional Limitations- Mobility/Gait standing 3-4 hours, walking for extended periods PT-OP-C Subjective Start: 10/13/23 13:47 Freq: Status: Active Protocol: Document 10/17/23 12:14 NM (Rec: 10/17/23 13:03 NM [id number]) OP-PT Subjective Patient Comments Patient Comments Pt reports no low back pain today, just numbness along the R anterior thigh. He reports that he was sore after IE, but lasted <24 hours. PT-OP-D Balance Start: 10/13/23 13:47 Freq: Status: Active Protocol: Document 10/13/23 13:48 NM (Rec: 10/13/23 15:44 NM [id number]) Balance Tests Single Limb Standing Single Limb- Right 5 sec, increased sway, decreased stability Single Limb- Left 10 sec before LOB Tandem Tandem Standing 5 sec ea side, difficulty with achieving position PT-OP-E Functional Tests Start: 10/13/23 13:47 Freq: Status: Active Protocol: Document 10/13/23 13:48 NM (Rec: 10/13/23 15:44 NM [id number]) Functional Tests Other Forward Trunk Flexion Test Name of Test measured from finger to ground , legs straight Score 3 from floor Comment reports concordant pain with trunk flexion PT-OP-F Manual Assessment Start: 10/13/23 13:47 Freq: Status: Active Protocol: Document 10/13/23 13:48 NM (Rec: 10/13/23 15:44 NM [id number]) Manual Assessments Soft Tissue Assessment Soft Tissue Mobility Assessment Increased tightness B hip flexors, increased tone R lumbar paraspinals Joint Mobility Assessment Joint Mobility Assessment Decreased hip mobility AROM and PROM. Limited hamstring length (R 150 deg, L 135 deg) PT-OP-G Mobility & Gait Start: 10/13/23 13:47 Freq: Status: Active Protocol: Document 10/13/23 13:48 NM (Rec: 10/13/23 15:44 NM [id number]) OP Gait Assessment Gait Gait Assistance Required: Independent Distance (Feet) 150 Assistive Devices Assistive Device None Gait Deviations General Gait Pattern Antalgic,Flexed Trunk,Wide Based Gait Factors Limiting Gait Function Factors Limiting Gait Function Decreased Sensation,Decreased Strength,Poor Balance Comments Gait Comments Antalgic gait, quicker stance RLE PT-OP-H Neuro Start: 10/13/23 13:47 Freq: Status: Active Protocol: Document 10/13/23 13:48 NM (Rec: 10/13/23 15:44 NM [id number]) Sensation Evaluation Gross Sensation Gross Sensation Right LE Impaired Sensation Description Numbness Dermatome Impairments L2,L3 Comments Summary Comments R anterior thigh in L2-L3 dermatomes decreased to light touch sensation compared to LLE. Pt able to feel light touch but reports significantly less than LLE. B trunk and lower BLE equally intact to light touch sensation PT-OP-J Posture/Palpation/Skin Start: 10/13/23 13:47 Freq: Status: Active Protocol: Document 10/13/23 13:48 NM (Rec: 10/13/23 15:44 NM [id number]) Posture Evaluation Position Standing Head/C-Spine Posture Forward Head T-Spine Posture Increased Kyphosis L-Spine Posture Decreased Lordosis,Fixed Scoliosis on (L) Shoulder Posture (L) Rounded,(R) Rounded,(L) Forward,(R) Forward,(R) Elevated Scapula Posture (L) Protracted,(R) Protracted Arm Posture (L) Internally Rotated,(R) Internally Rotated Pelvis Posture Posterior Tilted Weight Distribution Weight Shifted Left Hip Posture (L) Externally Rotated,(R) Externally Rotated Knee Posture (L) Genu Valgus,(R) Genu Valgus Patellar Posture (L) Superior,(R) Superior Ankle/Foot Posture (L) Pronated,(R) Pronated Toe Posture (R) Clawed Toes Palpation Assessment Location lumbar spine Palpation Location paraspinals, spinous and transverse processes of L spine Palpation Findings Soft Tissue Tightness, Tenderness Palpation Details Step off sign upper lumbar spine L2-L4. L scoliosis. Tender to palpation R lower lumbar vertebrae, R PSIS, QL, paraspinals. Slight increase in R paraspinal tone compared to L lumbar paraspinals. PT-OP-K Range of Motion Start: 10/13/23 13:47 Freq: Status: Active Protocol: Document 10/13/23 13:48 NM (Rec: 10/13/23 15:44 NM [id number]) Lumbar Spine Range of Motion Lumbar Spine Active Percentage Testing Position Standing Flexion 75 Extension 50 Rotation Left 100 Rotation Right 50 Lateral Flexion Left 100 Lateral Flexion Right 100 ROM Limitations Soft Tissue Tightness,Muscle Weakness,Pain Comments Lateral flexion to knee joint line. Pain reported with R lateral flexion, lumbar flexion (3 from ground) Hip Goniometric Range of Motion Hip Right Flexion w/Knee Flexed 90 Extension 5 Internal Rotation 15 External Rotation 10 Comments Lumbar spine pain reproduced with seated hip IR Left Flexion w/Knee Flexed 90 Extension 10 Internal Rotation 40 External Rotation 20 PT-OP-L Special Tests Start: 10/13/23 13:47 Freq: Status: Active Protocol: Document 10/13/23 13:48 NM (Rec: 10/13/23 15:44 NM [id number]) Special Tests Lumbar Spine Special Tests Straight Leg Raise Test Results + Comments bilateral Distraction Test Results - Comments reports no change in symptoms Winkler/Quadrant Test Results - Hip Special Tests [place] Test Results - FADIR Test Results - Neural Special Tests- Lower Body Femoral Nerve Tension Test Results + PT-OP-M Strength Start: 10/13/23 13:47 Freq: Status: Active Protocol: Document 10/13/23 13:48 NM (Rec: 10/13/23 15:44 NM [id number]) Trunk Strength Trunk Manual Muscle Testing Flexion 4 Good Extension 4 Good Rotation Left 4 Good Rotation Right 4 Good Lateral Flexion Left 4- Good- Lateral Flexion Right 4- Good- Core Stabilization difficulty stabilizing against resistance Comments no pain with active flexion Hip Strength Hip Manual Muscle Testing Right Flexion (L2) 4 Good Extension (S1) 4 Good Abduction 4- Good- Adduction 4 Good External Rotation 4 Good Internal Rotation 4 Good Comments Pain with resisted abduction. Pt also reports pain with PT hand placement due to sensation changes Left Flexion (L2) 4 Good Extension (S1) 4 Good Abduction 4 Good Adduction 4 Good External Rotation 4 Good Internal Rotation 4 Good Knee Strength Knee Manual Muscle Testing Right Flexion (S2) 4+ Good+ Extension (L3) 4+ Good+ Left Flexion (S2) 4+ Good+ Extension (L3) 4+ Good+ Ankle/Foot Strength Ankle and Foot Manual Muscle Testing Right Dorsiflexion (L4) 4+ Good+ Plantarflexion (S1) 4+ Good+ Left Dorsiflexion (L4) 4+ Good+ Plantarflexion (S1) 4+ Good+ PT-OP-Q Treatments Start: 10/13/23 13:47 Freq: Status: Active Protocol: Document 10/17/23 12:14 NM (Rec: 10/17/23 13:03 NM [id number]) Therapeutic Exercises Supine Exercises TA activation Supine Exercise Name 1. activation and breathing, 2 . B october (lift/lower small AROM) Side bilateral Reps/Minutes 1. 1x10 with brief hold, 2. 1x10 with brief hold Comments draw belly button up and in core isometrics Supine Exercise Name flexion: rectus abdominis isometric, oblique isometric Side bilateral Resistance pt isometric force Equipment Used legs elevated on orange syrian ball Reps/Minutes 10x5 ea Comments cued for draw up and in knees to chest Supine Exercise Name bilateral repetitive movement Side bilateral Equipment Used orange syrian ball Reps/Minutes 1x10 with 2 hold Comments cued ppt first to neutral, then KTC, pain free ROM; reports no pain, posterior pelvic tilt Supine Exercise Name post pelvic tilt to neutral spine Side bilateral Equipment Used PT hand under back for tactile cue Reps/Minutes 5x5 Comments cued for pain free AROM with ppt, 50% of AROM figure 4 stretch Supine Exercise Name knee flexed but not to chest Side bilateral Resistance AROM Reps/Minutes 1x30 ea Comments reports good stretch w/o low back pain; difficult w hip ER Sitting Exercises sit to stand Sitting Exercise Name note: demos shift to L, R hip abd/ER due to hx of polio Side bilateral Resistance lvl 2 tb around thighs Equipment Used from elevated mat Reps/Minutes 2x5 >> review next session Comments cued hip hinge, hands on hips for hinge cue; ant weight shift Therapeutic Activity Therapeutic Activity hip hinge Name seated hip hinge Reps/Minutes 2x5 Comments For movement retraining during ADLs/transfers. Pt hands on B ASIS for self- tactile cue, bring fingers toward leg bones. PT cueing for neutral spine, hip shift posterior. PT initially facilitating for correct movement at hips. Monitored for pain with activity, reports no pain. Demos ant pelvic tilt with increased reps, did not progress to standing Manual Therapy Treatment Soft Tissue Mobilization lumbar spine Body Location R paraspinals, QL Mobilization Type Oscillations,Rolling,Strumming Intensity/Depth Superficial Body Position Prone Comments Monitored for pain, none reported. Increased restrictions R paraspinals near lower ribs, QL Joint Mobilizations thoracic spine Joint T7-T12 spinous processes Direction P-A Grade II Body Position Prone Reps/Duration 1x10 ea Comments For pain reduction, begin increase mobility lumbar spine Joint L1, L5, R PSIS Direction P-A Grade II Body Position Prone Reps/Duration 2x30 Comments No mobilization of L2-L4 due to retrolisthesis. Grade II P- A mobilization of L1 and L5, R PSIS for pain reduction. Prone with pillows under hips; reports no pain or increased symptoms with mobilization, only when in positioned in prone after manual treatment ended R hip Joint capsule Direction P-A Grade II Reps/Duration 1x10 Comments 1. P-A mobilization, grade II 1x10 2. with gentle hip ext stretch to pt tolerance (increasing ea set), reports no pain or increased symptoms with stretch in sidelying, 3x15 Self-Care/Home Management Treatment Education Patient Education Body Mechanics,Home Exercise Program,Joint Protection,Pain Management Other Education 5 minutes: Educated on purpose of HEP. HEP provided: supine figure 4, double knee to chest on ball, spinal distraction in flexion, abdominal isometrics with syrian ball or pillow (legs supported). Educated on hip hinge, use in ADLs; will review in future sessions. Educated also on modalities for pain relief (e. g. heat) in addition to supine spinal distraction with legs elevated. Pt verbalizes understanding PT-OP-T Assessment and Plan Start: 10/13/23 13:47 Freq: Status: Active Protocol: Document 10/17/23 12:14 NM (Rec: 10/17/23 13:03 NM [id number]) Physical Therapy Assessment Goals Five Impairment strength Impairment gross trunk MMT 4/5 Short Term Goal (STG) Pt will improve gross trunk MMT to >4/5 in order to demonstrate improved spine stability for ADLs and activity STG Duration 4 weeks Back Roll Lathe Operator Goal (LTG) Pt will demonstrate functional ability to stabilize trunk during at least 8/10 reps of squats and/or deadlift using proper body mechanics without pain for improved spine stability to perform ADLs and activity LTG Duration 8 weeks Four Impairment AROM Impairment R hip ER 10 deg, IR 15 deg Short Term Goal (STG) Pt will improve R hip ER and IR AROM to at least 20 deg in order to demonstrate improved hip mobility for ADLs STG Duration 4 weeks Alf Goal (LTG) Pt will increase R hip ER to within 5 deg of L hip ER AROM and R hip IR AROM to at least 30 deg in order to demonstrate improved hip mobility for ADLs. LTG Duration 8 weeks Three Impairment AROM Impairment trunk flexion 75%, painful Alf Goal (LTG) Pt will be able to flex trunk >75% with pain <3/10 in order to pick an object up from the floor for improved ability to perform ADLs LTG Duration 8 weeks Two Impairment activity tolerance, function Impairment currently limited to standing <3-4 hr due to pain Short Term Goal (STG) Pt will report able to stand > 3 hours with pain <3/10 while performing wood working in order to demonstrate improved tolerance for activity and ability to participate in recreational activities STG Duration 4 weeks Back Roll Lathe Operator Goal (LTG) Pt will report no limitation in ability to stand or walk with <3/10 pain while performing wood working or other activities in order to demonstrate improved pain management, activity tolerance , and return to PLOF LTG Duration 8 weeks One Impairment activity Impairment Oswestry 16/100 Alf Goal (LTG) Pt will decrease Oswestry score to <16/100 in order to demonstrate improved activity tolerance and pain management. LTG Duration 8 weeks Assessment Summary Assessment Pt tolerated session well. He reports no pain during supine exercises, but slight increased in R thigh numbness after lying in prone during manual treatment. Initiated flexion-biased core strengthening and stabilizating. PT educated pt on drawing in manuever during core exercises ,in addition to transverse abdominis activation. Pt challenged initially with coordinating breathing and deep core activation; however, able to perform with isometrics and small AROM strengthening with PT verbally cueing for correct execution and form. PT educated pt on hip hinge in sitting as part of body mechanics training; did not progress to standing because pt has tendency for moving into increased lumbar lordosis despite tactile and verbal cues as fatigues. During sit <>stands, pt shifts weight away from R side, reports due to hx of polio RLE . Continues to demo decreased B hip mobility. During manual treatment, performed soft tissue mobilization to decrease restrictions at R lumbar paraspinals. Initiated anterior capsule mobilization of R hip in addition to gentle grade II lumbar mobilizations above/below L2-L4 due to retrolisthesis. Pt would benefit from skilled PT for additional core and spinal stabilization in addition to body mechanics re-education in order to decrease pain symptom, improve QOL and activity tolerance. Physical Therapy Plan Frequency and Duration Frequency of Treatment 2x/Week Duration of treatment (weeks) 8 Plan of Care Start Date 10/13/23 Plan of Care End Date 12/09/23 Therapeutic Interventions Therapeutic Interventions Aquatic Therapy,Balance Training,Coordination Training ,Gait Training,Home Exercise Program,Joint Mobilizations, Manual Therapy,Neuromuscular Re-education,Patient/Caregiver Education,Self-Care/Home Management,Sensory Integration ,Soft Tissue Mobilization, Taping,Therapeutic Activities, Therapeutic Exercises Modalities Cold Pack/Ice Massage,Electric Stimulation,Hot Packs, Ultrasound,Vasopneumatic Devices Other Therapeutic Interventions Manual traction Other Referrals/Consults Referrals/Consults Recommended Referral to pelvic floor PT for bladder Next Visit Focus/Plan Next Note Type Treatment Note Next Visit Plan Initiate hip hinge (sit>stand> pick up operator object), gentle core and trunk stabilization in flexion, progress TA activation with exercise as tolerated. Review PPT/neutral spine with activity. Review STS/squats (shifts L d/t polio hx) with equal WB if time Manual treatment: sidelying facet opening L2-L4 R; mobilize above/below joint L2- L4 No end range extension, no grade IV mobilizations or manipulations. Careful grade III mobilizations due to retrolisthesis L2-L4
--- NOTE | 2023-10-19 12:46 | PT.OTN ---
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 Reports that his back wakes him up at night , but is improving compared to several months ago. Pt reports low back pain with activity, worse with standing or walking for extended periods of time. He reports that he twisted wrong while standing and holding a crab pot, felt a pinch that worsened over the day and night. Had to lay down on the floor due to pain, unable to stand/walk. Went to ED due to pain, where they performed imaging. Has a hx of similar episode from picking up gum, about 18 years ago, but no other injuries. Reports Knees to chest, rolling makes it worse. Went to selling specialist recently and decided to try conservative care. 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 Back feels ok, but numbness in anterior thigh has not gone down. PT-OP-D Balance Start: 10/13/23 13:47 Freq: Status: Active Protocol: Document 10/13/23 13:48 NM (Rec: 10/13/23 15:44 NM [id number]) Balance Tests Single Limb Standing Single Limb- Right 5 sec, increased sway, decreased stability Single Limb- Left 10 sec before LOB Tandem Tandem Standing 5 sec ea side, difficulty with achieving position PT-OP-E Functional Tests Start: 10/13/23 13:47 Freq: Status: Active Protocol: Document 10/13/23 13:48 NM (Rec: 10/13/23 15:44 NM [id number]) Functional Tests Other Forward Trunk Flexion Test Name of Test measured from finger to ground , legs straight Score 3 from floor Comment reports concordant pain with trunk flexion PT-OP-F Manual Assessment Start: 10/13/23 13:47 Freq: Status: Active Protocol: Document 10/13/23 13:48 NM (Rec: 10/13/23 15:44 NM [id number]) Manual Assessments Soft Tissue Assessment Soft Tissue Mobility Assessment Increased tightness B hip flexors, increased tone R lumbar paraspinals Joint Mobility Assessment Joint Mobility Assessment Decreased hip mobility AROM and PROM. Limited hamstring length (R 150 deg, L 135 deg) PT-OP-G Mobility & Gait Start: 10/13/23 13:47 Freq: Status: Active Protocol: Document 10/13/23 13:48 NM (Rec: 10/13/23 15:44 NM [id number]) OP Gait Assessment Gait Gait Assistance Required: Independent Distance (Feet) 150 Assistive Devices Assistive Device None Gait Deviations General Gait Pattern Antalgic,Flexed Trunk,Wide Based Gait Factors Limiting Gait Function Factors Limiting Gait Function Decreased Sensation,Decreased Strength,Poor Balance Comments Gait Comments Antalgic gait, quicker stance RLE PT-OP-H Neuro Start: 10/13/23 13:47 Freq: Status: Active Protocol: Document 10/13/23 13:48 NM (Rec: 10/13/23 15:44 NM [id number]) Sensation Evaluation Gross Sensation Gross Sensation Right LE Impaired Sensation Description Numbness Dermatome Impairments L2,L3 Comments Summary Comments R anterior thigh in L2-L3 dermatomes decreased to light touch sensation compared to LLE. Pt able to feel light touch but reports significantly less than LLE. B trunk and lower BLE equally intact to light touch sensation PT-OP-J Posture/Palpation/Skin Start: 10/13/23 13:47 Freq: Status: Active Protocol: Document 10/13/23 13:48 NM (Rec: 10/13/23 15:44 NM [id number]) Posture Evaluation Position Standing Head/C-Spine Posture Forward Head T-Spine Posture Increased Kyphosis L-Spine Posture Decreased Lordosis,Fixed Scoliosis on (L) Shoulder Posture (L) Rounded,(R) Rounded,(L) Forward,(R) Forward,(R) Elevated Scapula Posture (L) Protracted,(R) Protracted Arm Posture (L) Internally Rotated,(R) Internally Rotated Pelvis Posture Posterior Tilted Weight Distribution Weight Shifted Left Hip Posture (L) Externally Rotated,(R) Externally Rotated Knee Posture (L) Genu Valgus,(R) Genu Valgus Patellar Posture (L) Superior,(R) Superior Ankle/Foot Posture (L) Pronated,(R) Pronated Toe Posture (R) Clawed Toes Palpation Assessment Location lumbar spine Palpation Location paraspinals, spinous and transverse processes of L spine Palpation Findings Soft Tissue Tightness, Tenderness Palpation Details Step off sign upper lumbar spine L2-L4. L scoliosis. Tender to palpation R lower lumbar vertebrae, R PSIS, QL, paraspinals. Slight increase in R paraspinal tone compared to L lumbar paraspinals. PT-OP-K Range of Motion Start: 10/13/23 13:47 Freq: Status: Active Protocol: Document 10/13/23 13:48 NM (Rec: 10/13/23 15:44 NM [id number]) Lumbar Spine Range of Motion Lumbar Spine Active Percentage Testing Position Standing Flexion 75 Extension 50 Rotation Left 100 Rotation Right 50 Lateral Flexion Left 100 Lateral Flexion Right 100 ROM Limitations Soft Tissue Tightness,Muscle Weakness,Pain Comments Lateral flexion to knee joint line. Pain reported with R lateral flexion, lumbar flexion (3 from ground) Hip Goniometric Range of Motion Hip Right Flexion w/Knee Flexed 90 Extension 5 Internal Rotation 15 External Rotation 10 Comments Lumbar spine pain reproduced with seated hip IR Left Flexion w/Knee Flexed 90 Extension 10 Internal Rotation 40 External Rotation 20 PT-OP-L Special Tests Start: 10/13/23 13:47 Freq: Status: Active Protocol: Document 10/13/23 13:48 NM (Rec: 10/13/23 15:44 NM [id number]) Special Tests Lumbar Spine Special Tests Straight Leg Raise Test Results + Comments bilateral Distraction Test Results - Comments reports no change in symptoms Winkler/Quadrant Test Results - Hip Special Tests [place] Test Results - FADIR Test Results - Neural Special Tests- Lower Body Femoral Nerve Tension Test Results + PT-OP-M Strength Start: 10/13/23 13:47 Freq: Status: Active Protocol: Document 10/13/23 13:48 NM (Rec: 10/13/23 15:44 NM [id number]) Trunk Strength Trunk Manual Muscle Testing Flexion 4 Good Extension 4 Good Rotation Left 4 Good Rotation Right 4 Good Lateral Flexion Left 4- Good- Lateral Flexion Right 4- Good- Core Stabilization difficulty stabilizing against resistance Comments no pain with active flexion Hip Strength Hip Manual Muscle Testing Right Flexion (L2) 4 Good Extension (S1) 4 Good Abduction 4- Good- Adduction 4 Good External Rotation 4 Good Internal Rotation 4 Good Comments Pain with resisted abduction. Pt also reports pain with PT hand placement due to sensation changes Left Flexion (L2) 4 Good Extension (S1) 4 Good Abduction 4 Good Adduction 4 Good External Rotation 4 Good Internal Rotation 4 Good Knee Strength Knee Manual Muscle Testing Right Flexion (S2) 4+ Good+ Extension (L3) 4+ Good+ Left Flexion (S2) 4+ Good+ Extension (L3) 4+ Good+ Ankle/Foot Strength Ankle and Foot Manual Muscle Testing Right Dorsiflexion (L4) 4+ Good+ Plantarflexion (S1) 4+ Good+ Left Dorsiflexion (L4) 4+ Good+ Plantarflexion (S1) 4+ Good+ PT-OP-Q Treatments Start: 10/13/23 13:47 Freq: Status: Active Protocol: Document 10/19/23 11:32 SW (Rec: 10/19/23 12:26 SW [id number]) Therapeutic Exercises Supine Exercises TA activation Supine Exercise Name 1. activation and breathing, 2 . B october (lift/lower small AROM) Side bilateral Reps/Minutes 1. 1x10 with brief hold, 2. 1x10 with brief hold Comments draw belly button up and in core isometrics Supine Exercise Name flexion: rectus abdominis isometric, oblique isometric Side bilateral Resistance pt isometric force Equipment Used legs elevated on orange luxembourger ball Reps/Minutes 10x5 ea Comments cued for draw up and in knees to chest Supine Exercise Name bilateral repetitive movement Side bilateral Equipment Used orange luxembourger ball Reps/Minutes 1x10 with 2 hold Comments cued ppt first to neutral, then KTC, pain free ROM; reports no pain, posterior pelvic tilt Supine Exercise Name post pelvic tilt to neutral spine Side bilateral Equipment Used PT hand under back for tactile cue Reps/Minutes 5x5 Comments cued for pain free AROM with ppt, 50% of AROM figure 4 stretch Supine Exercise Name knee flexed but not to chest Side bilateral Resistance AROM Reps/Minutes 1x30 ea Comments reports good stretch w/o low back pain; difficult w hip ER Sitting Exercises sit to stand Sitting Exercise Name note: demos shift to L, R hip abd/ER due to hx of polio Side bilateral Resistance lvl 2 tb around thighs Equipment Used from elevated mat Reps/Minutes 2x5 >> review next session Comments cued hip hinge, hands on hips for hinge cue; ant weight shift Manual Therapy Treatment Soft Tissue Mobilization lumbar spine Body Location R paraspinals, QL Mobilization Type Oscillations,Rolling,Strumming Intensity/Depth Superficial Body Position Prone Comments Monitored for pain, none reported. Increased restrictions R paraspinals near lower ribs, QL Self-Care/Home Management Treatment Education Patient Education Body Mechanics,Home Exercise Program,Joint Protection,Pain Management Other Education 8 min: pt education on modalities (ice) for pain and inflammation. Educated pt on symptom assessment during HEP, and to not push into increasing pain or numbness. PT-OP-T Assessment and Plan Start: 10/13/23 13:47 Freq: Status: Active Protocol: Document 10/19/23 11:32 (Rec: 10/19/23 12:26 [id number]) Physical Therapy Assessment Goals Five Impairment strength Impairment gross trunk MMT 4/5 Short Term Goal (STG) Pt will improve gross trunk MMT to >4/5 in order to demonstrate improved spine stability for ADLs and activity STG Duration 4 weeks Nursing Unit Manager Goal (LTG) Pt will demonstrate functional ability to stabilize trunk during at least 8/10 reps of squats and/or deadlift using proper body mechanics without pain for improved spine stability to perform ADLs and activity LTG Duration 8 weeks Four Impairment AROM Impairment R hip ER 10 deg, IR 15 deg Short Term Goal (STG) Pt will improve R hip ER and IR AROM to at least 20 deg in order to demonstrate improved hip mobility for ADLs STG Duration 4 weeks Nursing Unit Manager Goal (LTG) Pt will increase R hip ER to within 5 deg of L hip ER AROM and R hip IR AROM to at least 30 deg in order to demonstrate improved hip mobility for ADLs. LTG Duration 8 weeks Three Impairment AROM Impairment trunk flexion 75%, painful Nursing Unit Manager Goal (LTG) Pt will be able to flex trunk >75% with pain <3/10 in order to pick an object up from the floor for improved ability to perform ADLs LTG Duration 8 weeks Two Impairment activity tolerance, function Impairment currently limited to standing <3-4 hr due to pain Short Term Goal (STG) Pt will report able to stand > 3 hours with pain <3/10 while performing wood working in order to demonstrate improved tolerance for activity and ability to participate in recreational activities STG Duration 4 weeks Nursing Unit Manager Goal (LTG) Pt will report no limitation in ability to stand or walk with <3/10 pain while performing wood working or other activities in order to demonstrate improved pain management, activity tolerance , and return to PLOF LTG Duration 8 weeks One Impairment activity Impairment Oswestry 16/100 Nursing Unit Manager Goal (LTG) Pt will decrease Oswestry score to <16/100 in order to demonstrate improved activity tolerance and pain management. LTG Duration 8 weeks Assessment Summary Assessment Continued manual therapy, pt may benefit from seated manual therapy next session d/t positional tolerance ( transponder on Left side, increased symptoms in prone). Reviewed new exercises from last session for form, verbal, tactile, and visual cues required for correct execution . Heavy cueing required to coordinate hip hinge, used wand to facilitate correct execution, difficulty d/t head position. Pt education on symptom assessment during HEP, instructed pt to discontinue and communicate next session if any of the exercises are provoking an increase in numbness or pain. Educated pt on ice post exercises to assist with pain and inflammation. Pt reports discomfort in R side with isometric strengthening, cued pt for abdominal bracing, instructed pt to stop when feeling too fatigued, to avoid compensations from lumbar spine. Plan to followup on pt tolerance next session and progress as able. Physical Therapy Plan Frequency and Duration Frequency of Treatment 2x/Week Duration of treatment (weeks) 8 Plan of Care Start Date 10/13/23 Plan of Care End Date 12/09/23 Therapeutic Interventions Therapeutic Interventions Aquatic Therapy,Balance Training,Coordination Training ,Gait Training,Home Exercise Program,Joint Mobilizations, Manual Therapy,Neuromuscular Re-education,Patient/Caregiver Education,Self-Care/Home Management,Sensory Integration ,Soft Tissue Mobilization, Taping,Therapeutic Activities, Therapeutic Exercises Modalities Cold Pack/Ice Massage,Electric Stimulation,Hot Packs, Ultrasound,Vasopneumatic Devices Other Therapeutic Interventions Manual traction Other Referrals/Consults Referrals/Consults Recommended Referral to pelvic floor PT for bladder Next Visit Focus/Plan Next Note Type Treatment Note Next Visit Plan Initiate hip hinge (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 Review PPT/neutral spine with activity. Review STS/squats (shifts L d/t polio hx) with equal WB if time Manual treatment: sidelying facet opening L2-L4 R; mobilize above/below joint L2- L4 No end range extension, no grade IV mobilizations or manipulations. Careful grade III mobilizations due to retrolisthesis L2-L4
--- NOTE | 2023-10-24 12:14 | PT.OTN ---
Current Diagnoses Other intervertebral disc degeneration, lumbar region (10/24/23) Lumbago with sciatica, right side (10/24/23) Physical Therapy Treatment Note PT-OP-A Visit Information Start: 10/13/23 13:47 Freq: Status: Active Protocol: Document 10/24/23 11:18 NM (Rec: 10/24/23 12:14 NM [id number]) Out-Patient Physical Therapy Visit Information Visit Information Visit Type Treatment Note Visit Start Time 11:20 Visit Stop Time 12:00 Visit Number 4 PT-OP-B Current Condition Start: 10/13/23 13:47 Freq: Status: Active Protocol: Document 10/13/23 13:48 NM (Rec: 10/13/23 15:44 NM [id number]) Current Condition History of Current Condition Onset Date March 2023 Current Complaints pain, numbness in ant thigh History of Current Condition Pt presents with R sided low back pain and numbness of R anterior thigh. Reports that his back wakes him up at night , but is improving compared to several months ago. Pt reports low back pain with activity, worse with standing or walking for extended periods of time. He reports that he twisted wrong while standing and holding a crab pot, felt a pinch that worsened over the day and night. Had to lay down on the floor due to pain, unable to stand/walk. Went to ED due to pain, where they performed imaging. Has a hx of similar episode from picking up gum, about 18 years ago, but no other injuries. Reports Knees to chest, rolling makes it worse. Went to storage specialist recently and decided to try conservative care. 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 He painted all weekend, so his back is 3/10 pain. Increased numbness R quad over weekend. Had leg cramps. He reports no difficulty with HEP. PT-OP-D Balance Start: 10/13/23 13:47 Freq: Status: Active Protocol: Document 10/13/23 13:48 NM (Rec: 10/13/23 15:44 NM [id number]) Balance Tests Single Limb Standing Single Limb- Right 5 sec, increased sway, decreased stability Single Limb- Left 10 sec before LOB Tandem Tandem Standing 5 sec ea side, difficulty with achieving position PT-OP-E Functional Tests Start: 10/13/23 13:47 Freq: Status: Active Protocol: Document 10/13/23 13:48 NM (Rec: 10/13/23 15:44 NM [id number]) Functional Tests Other Forward Trunk Flexion Test Name of Test measured from finger to ground , legs straight Score 3 from floor Comment reports concordant pain with trunk flexion PT-OP-F Manual Assessment Start: 10/13/23 13:47 Freq: Status: Active Protocol: Document 10/13/23 13:48 NM (Rec: 10/13/23 15:44 NM [id number]) Manual Assessments Soft Tissue Assessment Soft Tissue Mobility Assessment Increased tightness B hip flexors, increased tone R lumbar paraspinals Joint Mobility Assessment Joint Mobility Assessment Decreased hip mobility AROM and PROM. Limited hamstring length (R 150 deg, L 135 deg) PT-OP-G Mobility & Gait Start: 10/13/23 13:47 Freq: Status: Active Protocol: Document 10/13/23 13:48 NM (Rec: 10/13/23 15:44 NM [id number]) OP Gait Assessment Gait Gait Assistance Required: Independent Distance (Feet) 150 Assistive Devices Assistive Device None Gait Deviations General Gait Pattern Antalgic,Flexed Trunk,Wide Based Gait Factors Limiting Gait Function Factors Limiting Gait Function Decreased Sensation,Decreased Strength,Poor Balance Comments Gait Comments Antalgic gait, quicker stance RLE PT-OP-H Neuro Start: 10/13/23 13:47 Freq: Status: Active Protocol: Document 10/13/23 13:48 NM (Rec: 10/13/23 15:44 NM [id number]) Sensation Evaluation Gross Sensation Gross Sensation Right LE Impaired Sensation Description Numbness Dermatome Impairments L2,L3 Comments Summary Comments R anterior thigh in L2-L3 dermatomes decreased to light touch sensation compared to LLE. Pt able to feel light touch but reports significantly less than LLE. B trunk and lower BLE equally intact to light touch sensation PT-OP-J Posture/Palpation/Skin Start: 10/13/23 13:47 Freq: Status: Active Protocol: Document 10/13/23 13:48 NM (Rec: 10/13/23 15:44 NM [id number]) Posture Evaluation Position Standing Head/C-Spine Posture Forward Head T-Spine Posture Increased Kyphosis L-Spine Posture Decreased Lordosis,Fixed Scoliosis on (L) Shoulder Posture (L) Rounded,(R) Rounded,(L) Forward,(R) Forward,(R) Elevated Scapula Posture (L) Protracted,(R) Protracted Arm Posture (L) Internally Rotated,(R) Internally Rotated Pelvis Posture Posterior Tilted Weight Distribution Weight Shifted Left Hip Posture (L) Externally Rotated,(R) Externally Rotated Knee Posture (L) Genu Valgus,(R) Genu Valgus Patellar Posture (L) Superior,(R) Superior Ankle/Foot Posture (L) Pronated,(R) Pronated Toe Posture (R) Clawed Toes Palpation Assessment Location lumbar spine Palpation Location paraspinals, spinous and transverse processes of L spine Palpation Findings Soft Tissue Tightness, Tenderness Palpation Details Step off sign upper lumbar spine L2-L4. L scoliosis. Tender to palpation R lower lumbar vertebrae, R PSIS, QL, paraspinals. Slight increase in R paraspinal tone compared to L lumbar paraspinals. PT-OP-K Range of Motion Start: 10/13/23 13:47 Freq: Status: Active Protocol: Document 10/13/23 13:48 NM (Rec: 10/13/23 15:44 NM [id number]) Lumbar Spine Range of Motion Lumbar Spine Active Percentage Testing Position Standing Flexion 75 Extension 50 Rotation Left 100 Rotation Right 50 Lateral Flexion Left 100 Lateral Flexion Right 100 ROM Limitations Soft Tissue Tightness,Muscle Weakness,Pain Comments Lateral flexion to knee joint line. Pain reported with R lateral flexion, lumbar flexion (3 from ground) Hip Goniometric Range of Motion Hip Right Flexion w/Knee Flexed 90 Extension 5 Internal Rotation 15 External Rotation 10 Comments Lumbar spine pain reproduced with seated hip IR Left Flexion w/Knee Flexed 90 Extension 10 Internal Rotation 40 External Rotation 20 PT-OP-L Special Tests Start: 10/13/23 13:47 Freq: Status: Active Protocol: Document 10/13/23 13:48 NM (Rec: 10/13/23 15:44 NM [id number]) Special Tests Lumbar Spine Special Tests Straight Leg Raise Test Results + Comments bilateral Distraction Test Results - Comments reports no change in symptoms Winkler/Quadrant Test Results - Hip Special Tests [place] Test Results - FADIR Test Results - Neural Special Tests- Lower Body Femoral Nerve Tension Test Results + PT-OP-M Strength Start: 10/13/23 13:47 Freq: Status: Active Protocol: Document 10/13/23 13:48 NM (Rec: 10/13/23 15:44 NM [id number]) Trunk Strength Trunk Manual Muscle Testing Flexion 4 Good Extension 4 Good Rotation Left 4 Good Rotation Right 4 Good Lateral Flexion Left 4- Good- Lateral Flexion Right 4- Good- Core Stabilization difficulty stabilizing against resistance Comments no pain with active flexion Hip Strength Hip Manual Muscle Testing Right Flexion (L2) 4 Good Extension (S1) 4 Good Abduction 4- Good- Adduction 4 Good External Rotation 4 Good Internal Rotation 4 Good Comments Pain with resisted abduction. Pt also reports pain with PT hand placement due to sensation changes Left Flexion (L2) 4 Good Extension (S1) 4 Good Abduction 4 Good Adduction 4 Good External Rotation 4 Good Internal Rotation 4 Good Knee Strength Knee Manual Muscle Testing Right Flexion (S2) 4+ Good+ Extension (L3) 4+ Good+ Left Flexion (S2) 4+ Good+ Extension (L3) 4+ Good+ Ankle/Foot Strength Ankle and Foot Manual Muscle Testing Right Dorsiflexion (L4) 4+ Good+ Plantarflexion (S1) 4+ Good+ Left Dorsiflexion (L4) 4+ Good+ Plantarflexion (S1) 4+ Good+ PT-OP-Q Treatments Start: 10/13/23 13:47 Freq: Status: Active Protocol: Document 10/24/23 11:18 NM (Rec: 10/24/23 12:14 NM [id number]) Therapeutic Exercises Supine Exercises lumbar trunk rotation Supine Exercise Name with TA activation and ppt Side bilateral Resistance AROM Equipment Used PT cueing for form, ppt Reps/Minutes 1x10 ea with brief hold Comments improved range with reps; reports no pain TA activation Supine Exercise Name 1. supine october with TA activation, 2. october with lat pull down isometric Side bilateral Equipment Used alt october Reps/Minutes 1. 1x10 ea with brief hold, 2. 1x8 Comments draw belly button up and in knees to chest Supine Exercise Name unilateral repetitive movement with ppt Side bilateral Equipment Used no SB, hand assist Reps/Minutes 1x10 ea with brief hold Comments reports good feedback with R stretch posterior pelvic tilt Supine Exercise Name post pelvic tilt to neutral spine Side bilateral Equipment Used PT hand under back for tactile cue Reps/Minutes 1x10 with brief hold at top Comments cued PPT first, glute first movement; min range d/t flexed trunk Sidelying Exercises hip abduction Sidelying Exercise Name with hip IR Side bilateral Resistance AROM Reps/Minutes 2x10 Comments reports no pain but feels it working in glutes/low back Sitting Exercises october Sitting Exercise Name TA activation with reciprocal march Side bilateral Equipment Used large green slovak ball Reps/Minutes 2x8 ea Comments cued abdominal bracing, increased numbness after reps lumbopelvic mobility Sitting Exercise Name 1. A/P tilts, 2. lateral flexion (side wags) Side bilateral Equipment Used large green slovak ball Reps/Minutes 1. 1x10 with brief hold, 2. 1x10 ea Comments decreased pelvic mobility R, post Standing Exercises femoral nerve glide Standing Exercise Name staggered stance (R in back) Side right Equipment Used TS/CS slump > ext Reps/Minutes 1x10 Comments reports no increase in symptoms; no change overall hip flexor stretch Standing Exercise Name leg elevated on stairs in 1/2 stance Side bilateral Reps/Minutes 2x30 Comments reports good stretch, no symptoms Manual Therapy Treatment Soft Tissue Mobilization lumbar spine Body Location R paraspinals, QL Mobilization Type Oscillations,Rolling,Strumming Intensity/Depth Superficial Body Position Sidelying Comments Monitored for pain, none reported. Increased restrictions R paraspinals near lower ribs, QL Joint Mobilizations lumbar spine Joint L1, L5, R PSIS Direction P-A Grade II Body Position Sidelying Reps/Duration 1x15 wtih 5 hold ea Comments In L sidelying with pillows under L hips to create greater side bend, performed lateral facet gapping and trunk sidebending. Added B hips in PVIM for greater PROM sidebend . Minimal trunk mobility AROM Self-Care/Home Management Treatment Education Patient Education Home Exercise Program Other Education HPE: bridge, standing hip flexor stretch PT-OP-T Assessment and Plan Start: 10/13/23 13:47 Freq: Status: Active Protocol: Document 10/24/23 11:18 NM (Rec: 10/24/23 12:14 NM [id number]) Physical Therapy Assessment Goals Five Impairment strength Impairment gross trunk MMT 4/5 Short Term Goal (STG) Pt will improve gross trunk MMT to >4/5 in order to demonstrate improved spine stability for ADLs and activity STG Duration 4 weeks Halfway Goal (LTG) Pt will demonstrate functional ability to stabilize trunk during at least 8/10 reps of squats and/or deadlift using proper body mechanics without pain for improved spine stability to perform ADLs and activity LTG Duration 8 weeks Four Impairment AROM Impairment R hip ER 10 deg, IR 15 deg Short Term Goal (STG) Pt will improve R hip ER and IR AROM to at least 20 deg in order to demonstrate improved hip mobility for ADLs STG Duration 4 weeks Boiler Tester Goal (LTG) Pt will increase R hip ER to within 5 deg of L hip ER AROM and R hip IR AROM to at least 30 deg in order to demonstrate improved hip mobility for ADLs. LTG Duration 8 weeks Three Impairment AROM Impairment trunk flexion 75%, painful Halfway Goal (LTG) Pt will be able to flex trunk >75% with pain <3/10 in order to pick an object up from the floor for improved ability to perform ADLs LTG Duration 8 weeks Two Impairment activity tolerance, function Impairment currently limited to standing <3-4 hr due to pain Short Term Goal (STG) Pt will report able to stand > 3 hours with pain <3/10 while performing wood working in order to demonstrate improved tolerance for activity and ability to participate in recreational activities STG Duration 4 weeks Boiler Tester Goal (LTG) Pt will report no limitation in ability to stand or walk with <3/10 pain while performing wood working or other activities in order to demonstrate improved pain management, activity tolerance , and return to PLOF LTG Duration 8 weeks One Impairment activity Impairment Oswestry 16/100 Boiler Tester Goal (LTG) Pt will decrease Oswestry score to <16/100 in order to demonstrate improved activity tolerance and pain management. LTG Duration 8 weeks Assessment Summary Assessment Pt tolerated session well, reporting a decrease in lumbar spine pain and soft tissue restrictions. Pt responds well to lumbar paraspinal stretch, hip mobility. Progressed to single knee to chest repetitive flexion motion, unilateral marching. Demos improved posterior pelvic tilt and abdominal bracing. However, he reports increased R quad numbness with repetitive hip flexion (e.g. marching) toward end of session. Trialed segmental bridges with posterior pelvic tilt, which pt tolerates without any increased symptoms . Trialed standing femoral nerve glide to determine efficacy, no change in symptoms. Manual treatment performed to continue to decrease soft tissue restrictions of lumbar spine muscles and decrease pain symptoms of R lateral facets. Pt with decreased pelvic mobility during both sidelying facet gapping and in seated/ supine pelvic mobility. PT educated pt on hydration, good nutrition and rest due to muscle cramps after painting all weekend. Pt would benefit from skilled PT for further spinal stabilization, to decrease radicular symptoms in order to improve activity tolerance and QOL. Physical Therapy Plan Frequency and Duration Frequency of Treatment 2x/Week Duration of treatment (weeks) 8 Plan of Care Start Date 10/13/23 Plan of Care End Date 12/09/23 Therapeutic Interventions Therapeutic Interventions Aquatic Therapy,Balance Training,Coordination Training ,Gait Training,Home Exercise Program,Joint Mobilizations, Manual Therapy,Neuromuscular Re-education,Patient/Caregiver Education,Self-Care/Home Management,Sensory Integration ,Soft Tissue Mobilization, Taping,Therapeutic Activities, Therapeutic Exercises Modalities Cold Pack/Ice Massage,Electric Stimulation,Hot Packs, Ultrasound,Vasopneumatic Devices Other Therapeutic Interventions Manual traction Other Referrals/Consults Referrals/Consults Recommended Referral to pelvic floor PT for bladder Next Visit Focus/Plan Next Note Type Treatment Note Next Visit Plan Next session: hip IR/ER sidelying, hip flexor stretch, STS vs bridge, hip abd s/l vs stand Initiate hip hinge (sit>stand> chart picker object), gentle core and trunk stabilization in flexion, progress TA activation with exercise as tolerated. Review PPT/neutral spine with activity. Review STS/squats (shifts L d/t polio hx) with equal WB if time Manual treatment: sidelying facet opening L2-L4 R; mobilize above/below joint L2- L4 No end range extension, no grade IV mobilizations or manipulations. Careful grade III mobilizations due to retrolisthesis L2-L4
--- NOTE | 2023-10-26 12:38 | PT.OTN ---
Current Diagnoses Other intervertebral disc degeneration, lumbar region (10/26/23) Lumbago with sciatica, right side (10/26/23) Physical Therapy Treatment Note PT-OP-A Visit Information Start: 10/13/23 13:47 Freq: Status: Active Protocol: Document 10/26/23 11:20 SW (Rec: 10/26/23 12:38 SW [id number]) Out-Patient Physical Therapy Visit Information Visit Information Visit Type Treatment Note Visit Start Time 11:18 Visit Stop Time 12:03 Visit Number 5 Number of TRIM CARPENTER Visits 1 PT-OP-B Current Condition Start: 10/13/23 13:47 Freq: Status: Active Protocol: Document 10/13/23 13:48 NM (Rec: 10/13/23 15:44 NM [id number]) Current Condition History of Current Condition Onset Date March 2023 Current Complaints pain, numbness in ant thigh History of Current Condition Pt presents with R sided low back pain and numbness of R anterior thigh. Reports that his back wakes him up at night , but is improving compared to several months ago. Pt reports low back pain with activity, worse with standing or walking for extended periods of time. He reports that he twisted wrong while standing and holding a crab pot, felt a pinch that worsened over the day and night. Had to lay down on the floor due to pain, unable to stand/walk. Went to ED due to pain, where they performed imaging. Has a hx of similar episode from picking up gum, about 18 years ago, but no other injuries. Reports Knees to chest, rolling makes it worse. Went to card services specialist recently and decided to try conservative care. 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 Prior Treatments and Tests 03/2023 Radiographs: multilevel spondylosis, retrolisthesis L2-L3 and L3-L4; MRI: levoscoliosis, central canal stenosis, neural foraminal stenosis L3-4 and bilateral foraminal stenosis L4-L5-S1 Prior Functional Status Baseline Function- ADL's Independent Baseline Function- Mobility Independent Baseline Function- Gait no limit Baseline Function- Work/School retired; wood working, crab trapping Current Functional Impairments (Reported) Functional Limitations- ADL's reports no limits with ADLs, difficulty with sleeping ( sleeps L side down) Functional Limitations- Mobility/Gait standing 3-4 hours, walking for extended periods PT-OP-C Subjective Start: 10/13/23 13:47 Freq: Status: Active Protocol: Document 10/26/23 11:20 SW (Rec: 10/26/23 12:38 SW [id number]) OP-PT Subjective Patient Comments Patient Comments Pt reports after workout it seems to be a little more discomfort for approximately 30 min, then progressively feels better. Pt reports zing in back getting up the other day, first time happened since therapy. PT-OP-D Balance Start: 10/13/23 13:47 Freq: Status: Active Protocol: Document 10/13/23 13:48 NM (Rec: 10/13/23 15:44 NM [id number]) Balance Tests Single Limb Standing Single Limb- Right 5 sec, increased sway, decreased stability Single Limb- Left 10 sec before LOB Tandem Tandem Standing 5 sec ea side, difficulty with achieving position PT-OP-E Functional Tests Start: 10/13/23 13:47 Freq: Status: Active Protocol: Document 10/13/23 13:48 NM (Rec: 10/13/23 15:44 NM [id number]) Functional Tests Other Forward Trunk Flexion Test Name of Test measured from finger to ground , legs straight Score 3 from floor Comment reports concordant pain with trunk flexion PT-OP-F Manual Assessment Start: 10/13/23 13:47 Freq: Status: Active Protocol: Document 10/13/23 13:48 NM (Rec: 10/13/23 15:44 NM [id number]) Manual Assessments Soft Tissue Assessment Soft Tissue Mobility Assessment Increased tightness B hip flexors, increased tone R lumbar paraspinals Joint Mobility Assessment Joint Mobility Assessment Decreased hip mobility AROM and PROM. Limited hamstring length (R 150 deg, L 135 deg) PT-OP-G Mobility & Gait Start: 10/13/23 13:47 Freq: Status: Active Protocol: Document 10/13/23 13:48 NM (Rec: 10/13/23 15:44 NM [id number]) OP Gait Assessment Gait Gait Assistance Required: Independent Distance (Feet) 150 Assistive Devices Assistive Device None Gait Deviations General Gait Pattern Antalgic,Flexed Trunk,Wide Based Gait Factors Limiting Gait Function Factors Limiting Gait Function Decreased Sensation,Decreased Strength,Poor Balance Comments Gait Comments Antalgic gait, quicker stance RLE PT-OP-H Neuro Start: 10/13/23 13:47 Freq: Status: Active Protocol: Document 10/13/23 13:48 NM (Rec: 10/13/23 15:44 NM [id number]) Sensation Evaluation Gross Sensation Gross Sensation Right LE Impaired Sensation Description Numbness Dermatome Impairments L2,L3 Comments Summary Comments R anterior thigh in L2-L3 dermatomes decreased to light touch sensation compared to LLE. Pt able to feel light touch but reports significantly less than LLE. B trunk and lower BLE equally intact to light touch sensation PT-OP-J Posture/Palpation/Skin Start: 10/13/23 13:47 Freq: Status: Active Protocol: Document 10/13/23 13:48 NM (Rec: 10/13/23 15:44 NM [id number]) Posture Evaluation Position Standing Head/C-Spine Posture Forward Head T-Spine Posture Increased Kyphosis L-Spine Posture Decreased Lordosis,Fixed Scoliosis on (L) Shoulder Posture (L) Rounded,(R) Rounded,(L) Forward,(R) Forward,(R) Elevated Scapula Posture (L) Protracted,(R) Protracted Arm Posture (L) Internally Rotated,(R) Internally Rotated Pelvis Posture Posterior Tilted Weight Distribution Weight Shifted Left Hip Posture (L) Externally Rotated,(R) Externally Rotated Knee Posture (L) Genu Valgus,(R) Genu Valgus Patellar Posture (L) Superior,(R) Superior Ankle/Foot Posture (L) Pronated,(R) Pronated Toe Posture (R) Clawed Toes Palpation Assessment Location lumbar spine Palpation Location paraspinals, spinous and transverse processes of L spine Palpation Findings Soft Tissue Tightness, Tenderness Palpation Details Step off sign upper lumbar spine L2-L4. L scoliosis. Tender to palpation R lower lumbar vertebrae, R PSIS, QL, paraspinals. Slight increase in R paraspinal tone compared to L lumbar paraspinals. PT-OP-K Range of Motion Start: 10/13/23 13:47 Freq: Status: Active Protocol: Document 10/13/23 13:48 NM (Rec: 10/13/23 15:44 NM [id number]) Lumbar Spine Range of Motion Lumbar Spine Active Percentage Testing Position Standing Flexion 75 Extension 50 Rotation Left 100 Rotation Right 50 Lateral Flexion Left 100 Lateral Flexion Right 100 ROM Limitations Soft Tissue Tightness,Muscle Weakness,Pain Comments Lateral flexion to knee joint line. Pain reported with R lateral flexion, lumbar flexion (3 from ground) Hip Goniometric Range of Motion Hip Right Flexion w/Knee Flexed 90 Extension 5 Internal Rotation 15 External Rotation 10 Comments Lumbar spine pain reproduced with seated hip IR Left Flexion w/Knee Flexed 90 Extension 10 Internal Rotation 40 External Rotation 20 PT-OP-L Special Tests Start: 10/13/23 13:47 Freq: Status: Active Protocol: Document 10/13/23 13:48 NM (Rec: 10/13/23 15:44 NM [id number]) Special Tests Lumbar Spine Special Tests Straight Leg Raise Test Results + Comments bilateral Distraction Test Results - Comments reports no change in symptoms Winkler/Quadrant Test Results - Hip Special Tests [place] Test Results - FADIR Test Results - Neural Special Tests- Lower Body Femoral Nerve Tension Test Results + PT-OP-M Strength Start: 10/13/23 13:47 Freq: Status: Active Protocol: Document 10/13/23 13:48 NM (Rec: 10/13/23 15:44 NM [id number]) Trunk Strength Trunk Manual Muscle Testing Flexion 4 Good Extension 4 Good Rotation Left 4 Good Rotation Right 4 Good Lateral Flexion Left 4- Good- Lateral Flexion Right 4- Good- Core Stabilization difficulty stabilizing against resistance Comments no pain with active flexion Hip Strength Hip Manual Muscle Testing Right Flexion (L2) 4 Good Extension (S1) 4 Good Abduction 4- Good- Adduction 4 Good External Rotation 4 Good Internal Rotation 4 Good Comments Pain with resisted abduction. Pt also reports pain with PT hand placement due to sensation changes Left Flexion (L2) 4 Good Extension (S1) 4 Good Abduction 4 Good Adduction 4 Good External Rotation 4 Good Internal Rotation 4 Good Knee Strength Knee Manual Muscle Testing Right Flexion (S2) 4+ Good+ Extension (L3) 4+ Good+ Left Flexion (S2) 4+ Good+ Extension (L3) 4+ Good+ Ankle/Foot Strength Ankle and Foot Manual Muscle Testing Right Dorsiflexion (L4) 4+ Good+ Plantarflexion (S1) 4+ Good+ Left Dorsiflexion (L4) 4+ Good+ Plantarflexion (S1) 4+ Good+ PT-OP-Q Treatments Start: 10/13/23 13:47 Freq: Status: Active Protocol: Document 10/26/23 11:20 SW (Rec: 10/26/23 12:38 SW [id number]) Therapeutic Exercises Supine Exercises Shoulder Flex Supine Exercise Name Lat for core connection for stabilization Side bilateral Reps/Minutes x10 Comments w/ core activation and coordinated breath work Trunk Bridge Supine Exercise Name Trunk bridge for core stabiliztion Reps/Minutes x10 Comments cued pt to peel and stick spine with minimal lift lumbar trunk rotation Supine Exercise Name with TA activation and ppt Side bilateral Resistance AROM Equipment Used PT cueing for form, ppt Reps/Minutes 1x10 ea with brief hold Comments improved range with reps; reports no pain TA activation Supine Exercise Name 1. Table top, alternating for core stabilization Side bilateral Equipment Used alt march Reps/Minutes 1. 1x10 ea with brief hold, 2. 1x8 Comments draw belly button up and in posterior pelvic tilt Supine Exercise Name post pelvic tilt to neutral spine Side bilateral Equipment Used PT hand under back for tactile cue Reps/Minutes 1x10 with brief hold at top Comments cued PPT first, glute first movement; min range d/t flexed trunk Sidelying Exercises hip abduction Sidelying Exercise Name with hip IR Side bilateral Resistance AROM Reps/Minutes 2x10 Comments reports no pain but feels it working in glutes/low back Sitting Exercises october Sitting Exercise Name TA activation with reciprocal october Side bilateral Equipment Used large green sammarinese ball Reps/Minutes 2x8 ea Comments cued abdominal bracing, increased numbness after reps lumbopelvic mobility Sitting Exercise Name 1. A/P tilts, 2. lateral flexion (side wags) Side bilateral Equipment Used large green sammarinese ball Reps/Minutes 1. 1x10 with brief hold, 2. 1x10 ea Comments decreased pelvic mobility R, post Standing Exercises femoral nerve glide Standing Exercise Name staggered stance (R in back) Side right Equipment Used TS/CS slump > ext Reps/Minutes 1x10 Comments reports no increase in symptoms; no change overall hip flexor stretch Standing Exercise Name w/ lat reach Side bilateral Reps/Minutes 2x30 Comments reports good stretch, no symptoms Other Exercises Hip IR/ER Other Exercise Name IR/ER mobility Side right Resistance AROM Equipment Used Stool Reps/Minutes x10 ea Comments cues for RLE alignment, tactile cues for decreased trunk rotation compensa Self-Care/Home Management Treatment Education Patient Education Body Mechanics,Home Exercise Program,Pain Management Other Education 10 min: pt education on core stabilization, carryover of stability into mobility. Pt education on modalities for pain. Pt education on HEP and importance of carryover for pt progress. PT-OP-T Assessment and Plan Start: 02/22/24 13:47 Freq: Status: Active Protocol: Document 10/26/23 11:20 (Rec: 10/26/23 12:38 [id number]) Physical Therapy Assessment Goals Five Impairment strength Impairment gross trunk MMT 4/5 Short Term Goal (STG) Pt will improve gross trunk MMT to >4/5 in order to demonstrate improved spine stability for ADLs and activity STG Duration 4 weeks Answering Service Telephone Operator Goal (LTG) Pt will demonstrate functional ability to stabilize trunk during at least 8/10 reps of squats and/or deadlift using proper body mechanics without pain for improved spine stability to perform ADLs and activity LTG Duration 8 weeks Four Impairment AROM Impairment R hip ER 10 deg, IR 15 deg Short Term Goal (STG) Pt will improve R hip ER and IR AROM to at least 20 deg in order to demonstrate improved hip mobility for ADLs STG Duration 4 weeks Answering Service Telephone Operator Goal (LTG) Pt will increase R hip ER to within 5 deg of L hip ER AROM and R hip IR AROM to at least 30 deg in order to demonstrate improved hip mobility for ADLs. LTG Duration 8 weeks Three Impairment AROM Impairment trunk flexion 75%, painful Correction Goal (LTG) Pt will be able to flex trunk >75% with pain <3/10 in order to pick an object up from the floor for improved ability to perform ADLs LTG Duration 8 weeks Two Impairment activity tolerance, function Impairment currently limited to standing <3-4 hr due to pain Short Term Goal (STG) Pt will report able to stand > 3 hours with pain <3/10 while performing wood working in order to demonstrate improved tolerance for activity and ability to participate in recreational activities STG Duration 4 weeks Answering Service Telephone Operator Goal (LTG) Pt will report no limitation in ability to stand or walk with <3/10 pain while performing wood working or other activities in order to demonstrate improved pain management, activity tolerance , and return to PLOF LTG Duration 8 weeks One Impairment activity Impairment Oswestry 16/100 Answering Service Telephone Operator Goal (LTG) Pt will decrease Oswestry score to <16/100 in order to demonstrate improved activity tolerance and pain management. LTG Duration 8 weeks Assessment Summary Assessment Pt tolerated session well with no increase in symptoms. Extended time with ther ex this session for pt education. Initiated Lat mm for core connection into trunk stabilization, this session with supine shoulder flexion to create the core connection into low back for core stabilization. Progressed patient with initiation of hip IR/ER mobility using stool assist, verbal/ tactile cues to coordinate movement and decrease compensation, pt tolerated well with no increase in symptoms. Issued HEP for hip flexor stretch. Plan to initiate hip IR/ER in supine next session for carryover to HEP. Physical Therapy Plan Frequency and Duration Frequency of Treatment 2x/Week Duration of treatment (weeks) 8 Plan of Care Start Date 10/13/23 Plan of Care End Date 12/09/23 Therapeutic Interventions Therapeutic Interventions Aquatic Therapy,Balance Training,Coordination Training ,Gait Training,Home Exercise Program,Joint Mobilizations, Manual Therapy,Neuromuscular Re-education,Patient/Caregiver Education,Self-Care/Home Management,Sensory Integration ,Soft Tissue Mobilization, Taping,Therapeutic Activities, Therapeutic Exercises Modalities Cold Pack/Ice Massage,Electric Stimulation,Hot Packs, Ultrasound,Vasopneumatic Devices Other Therapeutic Interventions Manual traction Other Referrals/Consults Referrals/Consults Recommended Referral to pelvic floor PT for bladder Next Visit Focus/Plan Next Note Type Treatment Note Next Visit Plan Next session: hip IR/ER sidelying, hip flexor stretch, STS vs bridge, hip abd s/l vs stand Initiate hip hinge (sit>stand> strip picker object), gentle core and trunk stabilization in flexion, progress TA activation with exercise as tolerated. Review PPT/neutral spine with activity. Review STS/squats (shifts L d/t polio hx) with equal WB if time Manual treatment: sidelying facet opening L2-L4 R; mobilize above/below joint L2- L4 No end range extension, no grade IV mobilizations or manipulations. Careful grade III mobilizations due to retrolisthesis L2-L4
--- NOTE | 2024-02-27 16:01 | PT.OPDS ---
Current Diagnoses Other intervertebral disc degeneration, lumbar region (10/26/23) Lumbago with sciatica, right side (10/26/23) Visit Care Team Role Provider Type Marques Washburn MD Attending Provider Physician Family Provider Primary Care Provider Referring Provider Specialty: Family Practice Obstetrics Address: [facility] [place], [address] Email: [email or web address] Visit Number Visit Number 5 Discharge Summary PT-OP-B Current Condition Start: 10/13/23 13:47 Freq: Status: Active Protocol: Document 10/13/23 13:48 NM (Rec: 10/13/23 15:44 NM [id number]) Current Condition History of Current Condition Onset Date March 2023 Current Complaints pain, numbness in ant thigh History of Current Condition Pt presents with R sided low back pain and numbness of R anterior thigh. Reports that his back wakes him up at night , but is improving compared to several months ago. Pt reports low back pain with activity, worse with standing or walking for extended periods of time. He reports that he twisted wrong while standing and holding a crab pot, felt a pinch that worsened over the day and night. Had to lay down on the floor due to pain, unable to stand/walk. Went to ED due to pain, where they performed imaging. Has a hx of similar episode from picking up gum, about 18 years ago, but no other injuries. Reports Knees to chest, rolling makes it worse. Went to financial reporting specialist recently and decided to try conservative care. 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 Prior Treatments and Tests 03/2023 Radiographs: multilevel spondylosis, retrolisthesis L2-L3 and L3-L4; MRI: levoscoliosis, central canal stenosis, neural foraminal stenosis L3-4 and bilateral foraminal stenosis L4-L5-S1 Prior Functional Status Baseline Function- ADL's Independent Baseline Function- Mobility Independent Baseline Function- Gait no limit Baseline Function- Work/School retired; wood working, crab trapping Current Functional Impairments (Reported) Functional Limitations- ADL's reports no limits with ADLs, difficulty with sleeping ( sleeps L side down) Functional Limitations- Mobility/Gait standing 3-4 hours, walking for extended periods PT-OP-C Subjective Start: 10/13/23 13:47 Freq: Status: Active Protocol: Document 10/26/23 11:20 SW (Rec: 10/26/23 12:38 SW [id number]) OP-PT Subjective Patient Comments Patient Comments Pt reports after workout it seems to be a little more discomfort for approximately 30 min, then progressively feels better. Pt reports zing in back getting up the other day, first time happened since therapy. PT-OP-D Balance Start: 10/13/23 13:47 Freq: Status: Active Protocol: Document 10/13/23 13:48 NM (Rec: 10/13/23 15:44 NM [id number]) Balance Tests Single Limb Standing Single Limb- Right 5 sec, increased sway, decreased stability Single Limb- Left 10 sec before LOB Tandem Tandem Standing 5 sec ea side, difficulty with achieving position PT-OP-E Functional Tests Start: 10/13/23 13:47 Freq: Status: Active Protocol: Document 10/13/23 13:48 NM (Rec: 10/13/23 15:44 NM [id number]) Functional Tests Other Forward Trunk Flexion Test Name of Test measured from finger to ground , legs straight Score 3 from floor Comment reports concordant pain with trunk flexion PT-OP-F Manual Assessment Start: 10/13/23 13:47 Freq: Status: Active Protocol: Document 10/13/23 13:48 NM (Rec: 10/13/23 15:44 NM [id number]) Manual Assessments Soft Tissue Assessment Soft Tissue Mobility Assessment Increased tightness B hip flexors, increased tone R lumbar paraspinals Joint Mobility Assessment Joint Mobility Assessment Decreased hip mobility AROM and PROM. Limited hamstring length (R 150 deg, L 135 deg) PT-OP-G Mobility & Gait Start: 10/13/23 13:47 Freq: Status: Active Protocol: Document 10/13/23 13:48 NM (Rec: 10/13/23 15:44 NM [id number]) OP Gait Assessment Gait Gait Assistance Required: Independent Distance (Feet) 150 Assistive Devices Assistive Device None Gait Deviations General Gait Pattern Antalgic,Flexed Trunk,Wide Based Gait Factors Limiting Gait Function Factors Limiting Gait Function Decreased Sensation,Decreased Strength,Poor Balance Comments Gait Comments Antalgic gait, quicker stance RLE PT-OP-H Neuro Start: 10/13/23 13:47 Freq: Status: Active Protocol: Document 10/13/23 13:48 NM (Rec: 10/13/23 15:44 NM [id number]) Sensation Evaluation Gross Sensation Gross Sensation Right LE Impaired Sensation Description Numbness Dermatome Impairments L2,L3 Comments Summary Comments R anterior thigh in L2-L3 dermatomes decreased to light touch sensation compared to LLE. Pt able to feel light touch but reports significantly less than LLE. B trunk and lower BLE equally intact to light touch sensation PT-OP-J Posture/Palpation/Skin Start: 10/13/23 13:47 Freq: Status: Active Protocol: Document 10/13/23 13:48 NM (Rec: 10/13/23 15:44 NM [id number]) Posture Evaluation Position Standing Head/C-Spine Posture Forward Head T-Spine Posture Increased Kyphosis L-Spine Posture Decreased Lordosis,Fixed Scoliosis on (L) Shoulder Posture (L) Rounded,(R) Rounded,(L) Forward,(R) Forward,(R) Elevated Scapula Posture (L) Protracted,(R) Protracted Arm Posture (L) Internally Rotated,(R) Internally Rotated Pelvis Posture Posterior Tilted Weight Distribution Weight Shifted Left Hip Posture (L) Externally Rotated,(R) Externally Rotated Knee Posture (L) Genu Valgus,(R) Genu Valgus Patellar Posture (L) Superior,(R) Superior Ankle/Foot Posture (L) Pronated,(R) Pronated Toe Posture (R) Clawed Toes Palpation Assessment Location lumbar spine Palpation Location paraspinals, spinous and transverse processes of L spine Palpation Findings Soft Tissue Tightness, Tenderness Palpation Details Step off sign upper lumbar spine L2-L4. L scoliosis. Tender to palpation R lower lumbar vertebrae, R PSIS, QL, paraspinals. Slight increase in R paraspinal tone compared to L lumbar paraspinals. PT-OP-K Range of Motion Start: 10/13/23 13:47 Freq: Status: Active Protocol: Document 10/13/23 13:48 NM (Rec: 10/13/23 15:44 NM [id number]) Lumbar Spine Range of Motion Lumbar Spine Active Percentage Testing Position Standing Flexion 75 Extension 50 Rotation Left 100 Rotation Right 50 Lateral Flexion Left 100 Lateral Flexion Right 100 ROM Limitations Soft Tissue Tightness,Muscle Weakness,Pain Comments Lateral flexion to knee joint line. Pain reported with R lateral flexion, lumbar flexion (3 from ground) Hip Goniometric Range of Motion Hip Right Flexion w/Knee Flexed 90 Extension 5 Internal Rotation 15 External Rotation 10 Comments Lumbar spine pain reproduced with seated hip IR Left Flexion w/Knee Flexed 90 Extension 10 Internal Rotation 40 External Rotation 20 PT-OP-L Special Tests Start: 10/13/23 13:47 Freq: Status: Active Protocol: Document 10/13/23 13:48 NM (Rec: 10/13/23 15:44 NM [id number]) Special Tests Lumbar Spine Special Tests Straight Leg Raise Test Results + Comments bilateral Distraction Test Results - Comments reports no change in symptoms Winkler/Quadrant Test Results - Hip Special Tests [place] Test Results - FADIR Test Results - Neural Special Tests- Lower Body Femoral Nerve Tension Test Results + PT-OP-M Strength Start: 10/13/23 13:47 Freq: Status: Active Protocol: Document 10/13/23 13:48 NM (Rec: 10/13/23 15:44 NM [id number]) Trunk Strength Trunk Manual Muscle Testing Flexion 4 Good Extension 4 Good Rotation Left 4 Good Rotation Right 4 Good Lateral Flexion Left 4- Good- Lateral Flexion Right 4- Good- Core Stabilization difficulty stabilizing against resistance Comments no pain with active flexion Hip Strength Hip Manual Muscle Testing Right Flexion (L2) 4 Good Extension (S1) 4 Good Abduction 4- Good- Adduction 4 Good External Rotation 4 Good Internal Rotation 4 Good Comments Pain with resisted abduction. Pt also reports pain with PT hand placement due to sensation changes Left Flexion (L2) 4 Good Extension (S1) 4 Good Abduction 4 Good Adduction 4 Good External Rotation 4 Good Internal Rotation 4 Good Knee Strength Knee Manual Muscle Testing Right Flexion (S2) 4+ Good+ Extension (L3) 4+ Good+ Left Flexion (S2) 4+ Good+ Extension (L3) 4+ Good+ Ankle/Foot Strength Ankle and Foot Manual Muscle Testing Right Dorsiflexion (L4) 4+ Good+ Plantarflexion (S1) 4+ Good+ Left Dorsiflexion (L4) 4+ Good+ Plantarflexion (S1) 4+ Good+ PT-OP-T Assessment and Plan Start: 10/13/23 13:47 Freq: Status: Active Protocol: Document 02/27/24 15:56 NM (Rec: 02/27/24 16:01 NM [id number]) Physical Therapy Assessment Goals Five Impairment strength Impairment gross trunk MMT 4/5 Short Term Goal (STG) Pt will improve gross trunk MMT to >4/5 in order to demonstrate improved spine stability for ADLs and activity STG Duration 4 weeks Jail Goal (LTG) Pt will demonstrate functional ability to stabilize trunk during at least 8/10 reps of squats and/or deadlift using proper body mechanics without pain for improved spine stability to perform ADLs and activity LTG Duration 8 weeks Four Impairment AROM Impairment R hip ER 10 deg, IR 15 deg Short Term Goal (STG) Pt will improve R hip ER and IR AROM to at least 20 deg in order to demonstrate improved hip mobility for ADLs STG Duration 4 weeks Jail Goal (LTG) Pt will increase R hip ER to within 5 deg of L hip ER AROM and R hip IR AROM to at least 30 deg in order to demonstrate improved hip mobility for ADLs. LTG Duration 8 weeks Three Impairment AROM Impairment trunk flexion 75%, painful Jail Goal (LTG) Pt will be able to flex trunk >75% with pain <3/10 in order to pick an object up from the floor for improved ability to perform ADLs LTG Duration 8 weeks Two Impairment activity tolerance, function Impairment currently limited to standing <3-4 hr due to pain Short Term Goal (STG) Pt will report able to stand > 3 hours with pain <3/10 while performing wood working in order to demonstrate improved tolerance for activity and ability to participate in recreational activities STG Duration 4 weeks Packing Machine Can Feeder Goal (LTG) Pt will report no limitation in ability to stand or walk with <3/10 pain while performing wood working or other activities in order to demonstrate improved pain management, activity tolerance , and return to PLOF LTG Duration 8 weeks One Impairment activity Impairment Oswestry 16/100 Packing Machine Can Feeder Goal (LTG) Pt will decrease Oswestry score to <16/100 in order to demonstrate improved activity tolerance and pain management. LTG Duration 8 weeks Assessment Summary Assessment Pt was evaluation in September 2021 for low back pain with radicular symptoms. He attended x4 visits since evaluation. He was making minimal progress toward PT goals and was minimally compliant with HEP per last MOBILE PHONE SALESPERSON note (last session pt attended). Pt has not been seen in clinic since 10/26/23. Pt will be discharged from PT due to lack of attendance. Physical Therapy Plan Frequency and Duration Frequency of Treatment 2x/Week Duration of treatment (weeks) 8 Plan of Care Start Date 10/13/23 Plan of Care End Date 12/09/23 Therapeutic Interventions Therapeutic Interventions Aquatic Therapy,Balance Training,Coordination Training ,Gait Training,Home Exercise Program,Joint Mobilizations, Manual Therapy,Neuromuscular Re-education,Patient/Caregiver Education,Self-Care/Home Management,Sensory Integration ,Soft Tissue Mobilization, Taping,Therapeutic Activities, Therapeutic Exercises Modalities Cold Pack/Ice Massage,Electric Stimulation,Hot Packs, Ultrasound,Vasopneumatic Devices Other Therapeutic Interventions Manual traction Other Referrals/Consults Referrals/Consults Recommended Referral to pelvic floor PT for bladder Discharge Physical Therapy Discharge Reasons No Longer Attending PT Discharge Comments Pt has not been seen in clinic since 10/26/23. He did not make any appointments beyond the 4 initially scheduled at evaluation. He will need new referral in order to return to PT Next Visit Focus/Plan Next Visit Plan Discharge from PT
== END 2024-02-28 14:05 | disposition home or self-care (01) ==
LOC: PHYS 11:15
PROVIDERS: Family Provider Family Medicine; PCP Family Medicine; Referring Provider Family Medicine; Visit Provider Family Medicine
DX: M54.41 Lumbago with sciatica, right side (principal); M51.36 Other intervertebral disc degeneration, lumbar region
CPT/HCPCS: 97110; 97140; 97162; 97535

== ENCOUNTER → 2024-04-05 08:50 | Outpatient (CLI) | payer MEDICARE, SELFPAY ==
[2024-04-05 10:30] LABS: Alanine Aminotransferase 39 IU/L (<50); Albumin 3.9 g/dL (3.5-5.0); Albumin Globulin Ratio 1.7 (1.0-2.8); Alkaline Phosphatase 132 U/L (38-126); Aspartate Aminotransferase 37 IU/L (17-59); BUN Creatinine Ratio 22.2 (6-22); Bilirubin Total 0.7 mg/dL (0.2-1.3); Blood Urea Nitrogen 18 mg/dL (9-20); Calcium 9.4 mg/dL (8.4-10.2); Carbon Dioxide 25 mmol/L (22-32); Chloride 108 mmol/L (98-107); Cholesterol 115 mg/dL (140-199); Estimated Glomerular Filt Rate > 60 mL/min (>60); Globulin 2.3 g/dL (1.7-4.1); Glucose 144 mg/dL (80-110); HDL Cholesterol 67 mg/dL (40-60); HEMOLYSIS < 15 (0-50); LDL Cholesterol Calculated 38 mg/dL (<100); Sodium 139 mmol/L (137-145); Total Protein 6.2 g/dL (6.3-8.2); Triglycerides 49 mg/dL (35-150)
[2024-04-05 10:32] LABS: Creatinine Urine Random 77.85 mg/dL
[2024-04-05 11:21] LABS: Microalbumin Urine Random < 0.6 mg/dL (0-1.6)
== END ==
LOC: LAB 08:52
PROVIDERS: PCP Family Medicine; Referring Provider Internal Medicine Endocrinology, Diabetes & Metabolism; Visit Provider Family Medicine
DX: E10.65 Type 1 diabetes mellitus with hyperglycemia (principal); E16.2 Hypoglycemia, unspecified; C25.9 Malignant neoplasm of pancreas, unspecified; E08.9 Diabetes mellitus due to underlying condition without complications; K86.89 Other specified diseases of pancreas
CPT/HCPCS: 36415; 80053; 80061; 82043; 82570

== ENCOUNTER → 2024-05-09 15:37 | Outpatient (CLI) | payer MEDICARE, SELFPAY ==
[2024-05-09 17:26] LABS: Add Manual Diff / Slide Review NO; Basophils Absolute Auto 0 /uL (0-100); Basophils Percent Auto 0.4 % (0-2); Eosinophils Absolute Auto 200 /uL (0-450); Eosinophils Percent Auto 3.4 % (2-4); Hematocrit 40.7 % (41-53); Hemoglobin 13.8 g/dL (13.5-17.5); Lymphocytes Absolute Auto 1300 /uL (1100-4500); Lymphocytes Percent Auto 28.4 % (25-40); Mean Corpuscular HGB Conc 33.9 % (30-36); Mean Corpuscular Volume 94.6 fL (80-100); Monocytes Absolute Auto 300 /uL (0-900); Monocytes Percent Auto 6.8 % (3-14); Neutrophils Absolute Auto 2700 /uL (1500-7000); Platelet Count 141 X10^3/uL (150-400); Red Cell Distribution Width 14.6 % (11.6-14.8); White Blood Cell Count 4.4 X10^3/uL (4.5-11.0)
[2024-05-09 17:48] LABS: Prothrombin Time 11.8 SECONDS (9.4-12.5)
[2024-05-09 18:09] LABS: Alanine Aminotransferase 53 IU/L (<50); Albumin 3.9 g/dL (3.5-5.0); Albumin Globulin Ratio 1.5 (1.0-2.8); Alkaline Phosphatase 110 U/L (38-126); Aspartate Aminotransferase 66 IU/L (17-59); BUN Creatinine Ratio 26.6 (6-22); Bilirubin Total 0.8 mg/dL (0.2-1.3); Blood Urea Nitrogen 21 mg/dL (9-20); Calcium 9.2 mg/dL (8.4-10.2); Carbon Dioxide 23 mmol/L (22-32); Chloride 106 mmol/L (98-107); Estimated Glomerular Filt Rate > 60 mL/min (>60); Globulin 2.6 g/dL (1.7-4.1); Glucose 214 mg/dL (80-110); HEMOLYSIS < 15 (0-50); Potassium 4.2 mmol/L (3.4-5.1); Sodium 135 mmol/L (137-145); Total Protein 6.5 g/dL (6.3-8.2)
[2024-05-09 18:23] LABS: Vitamin D 25 Hydroxy (D3) 35.1 ng/mL (30.0-100.0)
[2024-05-18 22:11] LABS: Alpha-Tocopherol 6.4 mg/L (9.0-29.0); Gamma-Tocopherol 0.5 mg/L (0.5-4.9)
== END ==
PROVIDERS: PCP Family Medicine; Referring Provider Internal Medicine Gastroenterology; Visit Provider Internal Medicine Gastroenterology
DX: R74.8 Abnormal levels of other serum enzymes (principal); C25.9 Malignant neoplasm of pancreas, unspecified; K86.89 Other specified diseases of pancreas; Z12.11 Encounter for screening for malignant neoplasm of colon
CPT/HCPCS: 36415; 80053; 82306; 84446; 84590; 85025; 85610

== ENCOUNTER → 2024-06-08 11:25 | Outpatient (CLI) | payer MEDICARE, SELFPAY ==
--- NOTE | 2024-06-08 13:00 | DI.US.S_ITS ---
PROCEDURE: US PERIPH VENOUS LOW EXTREM RT INDICATIONS: SWELLING TECHNIQUE: Real-time imaging, as well as color and pulse Doppler interrogation, were performed of the lower extremity deep veins from the inguinal ligament to the popliteal fossa, with documentation of the visualized calf veins. COMPARISON: None. FINDINGS: The common femoral, femoral, popliteal, and the visualized calf veins are normally compressible, and free of intraluminal thrombus. Color and pulse Doppler demonstrate normal phasic intraluminal flow. There is normal augmentation response to distal compression maneuver. IMPRESSION: No findings of lower extremity deep venous thrombosis. Dictated by: Yessenia Hester M.D. on 06/08/2024 at 11:56 Approved by: Yessenia Hester M.D. on 06/08/2024 at 11:56
== END ==
LOC: US 11:26
PROVIDERS: PCP Family Medicine; Referring Provider Nurse Practitioner Family; Visit Provider Nurse Practitioner Family
DX: M79.89 Other specified soft tissue disorders (principal)
CPT/HCPCS: 93971

== ENCOUNTER → 2024-06-20 11:54 | Outpatient (CLI) | payer MEDICARE, SELFPAY ==
--- NOTE | 2024-06-20 11:55 | DI.RAD.S_ITS ---
PROCEDURE: XR FOOT RT MIN 3V INDICATIONS: R 5th toe trauma, swelling/edema of foot ankle TECHNIQUE: 3 views of the foot were acquired. COMPARISON: None. FINDINGS: Bones: Minimally displaced transverse fracture of the 5th proximal phalanx best seen on lateral view. Dorsiflexion of the metatarsophalangeal joints throughout the forefoot compromises evaluation of the proximal phalanges. Soft tissues: Soft tissue edema is seen in the forefoot. Prominent heterotopic calcifications are seen in the region of the distal Achilles and plantar fascia. IMPRESSION: Minimally displaced transverse fracture of the 5th proximal phalangeal shaft. Approved by: Jay Ram M.D. on 06/20/2024 at 13:18
== END ==
PROVIDERS: PCP Family Medicine; Referring Provider Family Medicine; Visit Provider Family Medicine
DX: S92.514A Nondisplaced fracture of proximal phalanx of right lesser toe(s), initial encounter for closed fracture (principal); M79.89 Other specified soft tissue disorders
CPT/HCPCS: 73630

== ENCOUNTER → 2024-09-29 08:08 | Outpatient (CLI) | payer MEDICARE, SELFPAY ==
[2024-09-29 09:17] LABS: Hematocrit 40.9 % (41-53); Hemoglobin 13.8 g/dL (13.5-17.5); Mean Corpuscular HGB Conc 33.7 % (30-36); Mean Corpuscular Hemoglobin 31.4 PG (26-34); Mean Corpuscular Volume 93.2 fL (80-100); Platelet Count 128 X10^3/uL (150-400); Red Blood Cell Count 4.39 X10^6/uL (4.5-5.9); Red Cell Distribution Width 14.7 % (11.6-14.8); White Blood Cell Count 5.3 X10^3/uL (4.5-11.0)
[2024-09-29 09:53] LABS: Alanine Aminotransferase 187 IU/L (<50); Albumin 3.7 g/dL (3.5-5.0); Albumin Globulin Ratio 1.5 (1.0-2.8); Alkaline Phosphatase 256 U/L (38-126); Aspartate Aminotransferase 126 IU/L (17-59); BUN Creatinine Ratio 23.1 (6-22); Bilirubin Total 1.2 mg/dL (0.2-1.3); Blood Urea Nitrogen 18 mg/dL (9-20); Calcium 9.1 mg/dL (8.4-10.2); Carbon Dioxide 23 mmol/L (22-32); Chloride 109 mmol/L (98-107); Cholesterol 126 mg/dL (140-199); Estimated Glomerular Filt Rate > 60 mL/min (>60); Globulin 2.4 g/dL (1.7-4.1); Glucose 122 mg/dL (80-110); HDL Cholesterol 65 mg/dL (40-60); HEMOLYSIS < 15 (0-50); LDL Cholesterol Calculated 49 mg/dL (<100); Potassium 4.1 mmol/L (3.4-5.1); Sodium 137 mmol/L (137-145); Total Protein 6.1 g/dL (6.3-8.2); Triglycerides 59 mg/dL (35-150)
[2024-09-29 10:04] LABS: Vitamin D 25 Hydroxy (D3) 17.8 ng/mL (30.0-100.0)
[2024-09-29 10:39] LABS: Vitamin B12 Reflex MMA if <400 414 pg/mL (239-931)
== END ==
LOC: LAB 08:10
PROVIDERS: PCP Internal Medicine Gastroenterology; Referring Provider Family Medicine; Visit Provider Family Medicine
DX: E56.0 Deficiency of vitamin E (principal); E08.9 Diabetes mellitus due to underlying condition without complications; K86.89 Other specified diseases of pancreas; Z13.21 Encounter for screening for nutritional disorder; K86.81 Exocrine pancreatic insufficiency
CPT/HCPCS: 36415; 80053; 80061; 82306; 82607; 83036; 84446; 84590; 85027

== ENCOUNTER → 2024-11-27 08:48 | Outpatient (CLI) | payer MEDICARE, SELFPAY ==
--- NOTE | 2024-11-27 08:49 | DI.US.S_ITS ---
PROCEDURE: US ABDOMEN LIMITED INDICATIONS: Elevated liver enzymes, eval for fatty liver vs other TECHNIQUE: Real-time focused scanning was performed of the abdomen, with image documentation. COMPARISON: [facility], US, US ABDOMEN LIMITED, 10/29/2019, 9:25. FINDINGS: Main portal vein appears patent. Probable pneumobilia. Gallbladder is absent. Hepatic echotexture is mildly increased. Biliary system not well seen. Limited sonographic windows due to bowel gas. IMPRESSION: Limited sonographic windows due to bowel gas. Hepatic echotexture is mildly increased and heterogeneous, which could represent hepatocellular disease. Suspect pneumobilia. Gallbladder is absent. Biliary system is not well seen. Dictated by: David Grant M.D. on 11/27/2024 at 16:31 Approved by: David Grant M.D. on 11/27/2024 at 16:32
[2024-11-27 09:23] LABS: Alanine Aminotransferase 79 IU/L (<50); Albumin 4.2 g/dL (3.5-5.0); Albumin Globulin Ratio 1.7 (1.0-2.8); Alkaline Phosphatase 163 U/L (38-126); Aspartate Aminotransferase 63 IU/L (17-59); BUN Creatinine Ratio 26.9 (6-22); Bilirubin Total 0.7 mg/dL (0.2-1.3); Blood Urea Nitrogen 25 mg/dL (9-20); Calcium 9.5 mg/dL (8.4-10.2); Carbon Dioxide 23 mmol/L (22-32); Chloride 110 mmol/L (98-107); Estimated Glomerular Filt Rate > 60 mL/min (>60); Globulin 2.5 g/dL (1.7-4.1); Glucose 152 mg/dL (80-110); HEMOLYSIS < 15 (0-50); Iron 135 ug/dL (49-181); Potassium 4.6 mmol/L (3.4-5.1); Sodium 140 mmol/L (137-145); Total Protein 6.7 g/dL (6.3-8.2)
[2024-11-27 09:34] LABS: Percent Iron Saturation 40 % (20-50); Total Iron Binding Capacity 334 ug/dL (261-462); Transferrin 256 mg/dL (206-381)
[2024-11-27 09:42] LABS: Free T3, Triiodothyronine Free 3.52 pg/mL (2.77-5.27); Free T4, Direct Thyroxine 0.84 ng/dL (0.78-2.19)
[2024-11-27 09:59] LABS: Ferritin 91 ng/mL (18-464)
[2024-11-27 16:36] LABS: Hepatitis B Surface Antigen NEGATIVE s/c (NEGATIVE)
[2024-11-27 16:54] LABS: Hep C Virus Ab w/Reflex Quant NEGATIVE s/c (NEGATIVE)
[2024-11-28 02:07] LABS: Hepatitis B Core Antibody Negative (Negative)
[2024-11-29 02:36] LABS: Hepatitis B Surf Ab Qualitativ Non Reactive (.)
[2024-11-29 15:08] LABS: Tissue Transglutaminase IgA <2 U/mL (0-3); Tissue Transglutaminase IgG 3 U/mL (0-5)
[2024-11-30 14:08] LABS: Albumin 3.6 g/dL (2.9-4.4); Alpha-1-Globulin 0.2 g/dL (0.0-0.4); Alpha-2-Globulin 0.6 g/dL (0.4-1.0); Gamma Globulin 0.9 g/dL (0.4-1.8); Globulin Total 2.6 g/dL (2.2-3.9); Protein, Total 6.2 g/dL (6.0-8.5)
== END ==
LOC: US 08:48
PROVIDERS: PCP Family Medicine; Referring Provider Family Medicine; Visit Provider Family Medicine
DX: R74.8 Abnormal levels of other serum enzymes (principal); Z90.49 Acquired absence of other specified parts of digestive tract
CPT/HCPCS: 36415; 76705; 80053; 82728; 83516; 83540; 83550; 84155; 84165; 84439; 84443; 84481; 86704; 86706; 86803; 87340

== ENCOUNTER → 2025-06-03 09:28 | Outpatient (CLI) | payer MEDICARE, SELFPAY ==
[2025-06-03 10:43] LABS: Add Manual Diff / Slide Review NO; Hematocrit 41.0 % (41-53); Hemoglobin 13.7 g/dL (13.5-17.5); Lymphocytes Absolute Auto 1200 /uL (1100-4500); Mean Corpuscular HGB Conc 33.4 % (30-36); Mean Corpuscular Hemoglobin 31.1 PG (26-34); Mean Corpuscular Volume 93.1 fL (80-100); Platelet Count 134 X10^3/uL (150-400)
[2025-06-03 10:57] LABS: INR 1.0 (0.9-1.3); Prothrombin Time 11.6 SECONDS (9.4-12.5)
== END ==
PROVIDERS: PCP Family Medicine; Referring Provider Internal Medicine Gastroenterology; Visit Provider Internal Medicine Gastroenterology
DX: C25.9 Malignant neoplasm of pancreas, unspecified (principal); K86.89 Other specified diseases of pancreas; R74.8 Abnormal levels of other serum enzymes; Z12.11 Encounter for screening for malignant neoplasm of colon
CPT/HCPCS: 36415; 84446; 84590; 85025; 85610

== ENCOUNTER → 2025-06-04 16:15 | Outpatient (CLI) | payer MEDICARE, SELFPAY ==
[2025-06-04 17:25] LABS: Alanine Aminotransferase 53 IU/L (<50); Albumin 4.2 g/dL (3.5-5.0); Albumin Globulin Ratio 1.7 (1.0-2.8); Alkaline Phosphatase 133 U/L (38-126); Blood Urea Nitrogen 21 mg/dL (9-20); Calcium 9.2 mg/dL (8.4-10.2); Carbon Dioxide 24 mmol/L (22-32); Chloride 109 mmol/L (98-107); Estimated Glomerular Filt Rate > 60 mL/min (>60); Globulin 2.5 g/dL (1.7-4.1); HEMOLYSIS < 15 (0-50); Potassium 3.9 mmol/L (3.4-5.1); Sodium 141 mmol/L (137-145); Total Protein 6.7 g/dL (6.3-8.2)
[2025-06-04 17:49] LABS: Glucose 45 mg/dL (70-99)
[2025-06-04 18:13] LABS: Vitamin D 25 Hydroxy (D3) 35.8 ng/mL (30.0-100.0)
== END ==
PROVIDERS: PCP Family Medicine; Referring Provider Internal Medicine Gastroenterology; Visit Provider Internal Medicine Gastroenterology
DX: K86.89 Other specified diseases of pancreas (principal); C25.9 Malignant neoplasm of pancreas, unspecified; R74.8 Abnormal levels of other serum enzymes; Z12.11 Encounter for screening for malignant neoplasm of colon
CPT/HCPCS: 80053; 82306

== ENCOUNTER → 2025-07-12 15:25 | Outpatient (CLI) | payer MEDICARE, SELFPAY ==
[2025-07-12 16:50] LABS: Vitamin D 25 Hydroxy (D3) 41.3 ng/mL (30.0-100.0)
[2025-07-12 17:39] LABS: Folate 12.4 ng/mL (2.76-20.0); Vitamin B12 366 pg/mL (239-931)
== END ==
PROVIDERS: PCP Family Medicine; Referring Provider Internal Medicine Gastroenterology; Visit Provider Internal Medicine Gastroenterology
DX: K86.89 Other specified diseases of pancreas (principal); C25.9 Malignant neoplasm of pancreas, unspecified; R41.3 Other amnesia; R74.8 Abnormal levels of other serum enzymes; Z12.11 Encounter for screening for malignant neoplasm of colon; K86.81 Exocrine pancreatic insufficiency; E56.0 Deficiency of vitamin E
CPT/HCPCS: 36415; 82306; 82607; 82746; 84446; 84590